=== PATIENT | male | born 1945 | race Caucasian/White ===

== ENCOUNTER → 2020-12-16 08:40 | Outpatient (CLI) | payer MEDICARE, SELFPAY ==
--- NOTE | 2020-12-16 08:46 | ART_ITS ---
Reason For Study: PVD Procedure A bilateral lower extremity continuous wave Doppler with analog waveform analysis and ankle brachial indexes. Left Segmental Pressures Left brachial= 162mmHg. Left posterior tibial artery = 177mmHg. Left dorsalis pedis artery = 161mmHg. The left dorsalis pedis waveforms are triphasic. The left posterior tibial artery waveforms are triphasic. Right Segmental Pressures Right brachial= 162mmHg. Right posterior tibial artery = 174mmHg. Right dorsalis pedis artery = 159mmHg. The right dorsalis pedis waveforms are triphasic. The right posterior tibial artery waveforms are triphasic. Indices The right ankle brachial index by the dorsalis pedis is 0.98. The right ankle brachial index by the posterior tibial artery is 1.07. The left ankle brachial index by the dorsalis pedis is 0.99. The left ankle brachial index by the posterior tibial artery is 1.09. VL/Ankle Brachial Index Interpretation Summary Bilateral lower extremities with no evidence of significant occlusive disease a t rest with bilateral triphasic flow and an JAGDISH 1.07 and 1.09. Ordering Physician: Supa Gil Referring Physician: Omer Moss Performed By: Susan Diamond RVT
--- NOTE | 2020-12-16 08:46 | AAVD_ITS ---
Reason For Study: AAA w/repair Aorta Measurements Aorta Doppler Measurements Proximal aorta measures2.07 x 2.04cm. in cross- Peak systolic flow velocities within the proximal sectional axis. aorta measure 53.8 cm/sec. Proximal aorta measures2.10cm. in longitudinal Mid limb, 58.2 cm/sec. axis. Distal limb, 83.3 cm/sec. Mid Limb, 1.22 x 1.20 x 1.26 cm Mid Residual sac, 2.89 x 2.91 x 3.02 cm. Distal limb, 1.64 x 1.64 x 1.62 cm. Distal Residual sac, 3.23 x 3.21 x 3.33 cm. Left Iliac Artery Left iliac artery measures 1.46 x 1.43 cm. in the cross-sectional axis. Left iliac artery measures 1.46 cm. in the longitudinal axis. Peak systolic velocity in the left iliac artery measures 54.8 cm/sec. Right Iliac Artery Right iliac artery measures 1.30 x 1.25 cm. in the cross-sectional axis. Right iliac artery measures 1.25 cm. in the longitudinal axis. Peak systolic velocity in the right iliac artery measures 35.8 cm/sec. Procedure Aorta IVC Iliac vasculature or bypass grafts [id number]. Technically difficult study due to bowel gas and acoustic shadowing. Exam performed in department. VL/Abd Aortic/IVC Duplex scan Interpretation Summary No evidence of aortic iliac aneurysm or stenosis. Ordering Physician: Supa Gil Referring Physician: Omer Moss Performed By: Susan Diamond RVT
== END ==
PROVIDERS: PCP Family Medicine; Referring Provider Surgery Vascular Surgery; Visit Provider Surgery Vascular Surgery
DX: I71.4 Abdominal aortic aneurysm, without rupture (principal); I73.9 Peripheral vascular disease, unspecified; Z95.828 Presence of other vascular implants and grafts
CPT/HCPCS: 93922; 93978

== ENCOUNTER 2021-10-22 15:10 | Emergency (ER) | payer MEDICARE, SELFPAY ==
[2021-10-22 15:11] VITALS: PULSE 48; RESP 14; TEMP 36.6; O2SAT 98; BMI 28.6
--- NOTE | 2021-10-22 15:34 | EDS_ITS ---
HPI History of Present Illness Chief Complaint: Back Informant: patient and EMS Narrative Narrative: 76-year-old male presenting to the emergency room with a chief complaint of low back pain. Patient states on Wednesday he was attempting to open a stuck window when he suddenly felt his back locked up. Started on low back and worked its way to the mid back. He states that he has been mostly resting as this is happened to him before and typically last around 5 days. He denies any radicular symptoms. No saddle anesthesia or bowel or bladder dysfunction. No red flag history. The patient notes that he felt like he was improving today got out of bed to go to the bathroom and had a sudden onset of increased back pain. Still no change in the symptoms other than the intensity of the pain. He was unable to drive here so he called EMS. Patient has had a history of abdominal aortic aneurysm repair. He denies any black tarry stools. He denies any abdominal pain. [facility] Medical History HTN (hypertension) Hypercholesteremia Hypothyroidism Home Medications atorvastatin 80 mg tablet 1 tab PO QHS 10/22/21 [History Last Taken Unknown] diazepam 5 mg tablet 5 mg PO Q8 PRN Muscle Spasm #15 tabs 10/22/21 [Rx Last Taken Unknown] ketorolac 10 mg tablet 10 mg PO Q8H PRN pain 5 days #15 tabs 10/22/21 [Rx Last Taken Unknown] levothyroxine 112 mcg tablet 1 tab PO DAILY 10/22/21 [History Last Taken Unknown] lisinopril 5 mg tablet 1 tab PO DAILY 10/22/21 [History Last Taken Unknown] metoprolol succinate 25 mg tablet,extended release 24 hr 1 tab PO BID 10/22/21 [History Last Taken Unknown] oxycodone 10 mg tablet 10 mg PO TID PRN pain 5 days #15 tabs 10/22/21 [Rx Last T aken Unknown] Allergy/AdvReac Type Severity Reaction Status Date / Time No Known Allergies Allergy Verified 10/22/21 15:14 Surgical History S/P triple vessel bypass Social History Smoking Status: Former smoker ROS ROS ED Constitutional Constitutional ED: Denies chills, fever(s) or weight loss Eyes Eyes: Denies change in vision or diplopia ENT ENT ED: Denies ear pain, rhinorrhea or sore throat Cardiovascular Cardiovascular: Denies chest pain, orthopnea, palpitations or racing heartbeat Respiratory/Chest Respiratory/Chest: Denies cough, dyspnea or orthopnea Gastrointestinal Gastrointestinal: Denies abdominal pain, diarrhea, nausea or vomiting Genitourinary Genitourinary ED: Denies dysuria, hematuria or urinary frequency Musculoskeletal Musculoskeletal: Reports back pain; Denies arthralgias or myalgias Integumentary Denies abscess or rash Neurologic Neurologic: Denies headache(s) or weakness Psychiatric Psychiatric: Denies anxiety, depression, suicidal ideation or suicidal thoughts Endocrine Endocrinology: Denies polydipsia, polyphagia or polyuria Allergic/Immunologic Allergic/Immunologic ED: Denies mouth swelling, tongue swelling or urticaria EXAM Physical Exam Const Vital Signs: 10/22/21 15:11 Temperature 97.8 F Temperature Source Temporal Pulse Rate 48 L Respiratory Rate 14 Pulse Ox 98 Oxygen Delivery Method Room Air Positive well nourished and well developed General Appearance ED: well developed HEENT Reports normocephalic, head/scalp atraumatic and moist mucous membranes Eyes PERRL and EOMs intact bilaterally Neck no lymphadenopathy, supple and no JVD Resp normal respiratory effort and clear to auscultation bilaterally Cardio regular rate, regular rhythm and no murmurs GI normal to inspection, nondistended, normoactive bowel sounds and non-tender Palpation: soft Back/Spine no CVA tenderness Back/Spine Narrative: There is palpable muscle spasm of the lumbar paraspinal musculature. Tender to palpation. There is no tissue texture changes to suggest underlying infection. Specifically there is no vesicular rash. Normal deep tendon reflexes sensation and strength. Lumbar Spine / Lower Back: ROM limited Extremity normal to inspection General Extremety ED: Negative for edema General Extremity: Negative for edema Neuro oriented x3 and CN's II-XII intact bilaterally Sensorium / Orientation: alert Motor Exam: strength 5/5 throughout Psych mental status grossly normal Mood & Affect: Negative for depressed or tearful Skin no rashes or lesions noted and no wounds MDM MDM MDM Narrative Medical decision making narrative: Patient received Toradol morphine and a dose of Valium. I will prescribe him Valium Toradol and oxycodone. Continue to rest and heat. Follow-up with primary care. He may benefit from physical therapy. Discharge Plan Triage Chief Complaint: Back ED Provider: Guilherme Dunlap Dx/Rx/DC Orders Clinical Impression: Acute back pain, Acute lumbar myofascial strain Instructions: ED Back Sprain/Strain Prescriptions: New diazepam [diazepam] 5 mg tablet 5 mg PO Q8 PRN (Reason: Muscle Spasm) Qty: 15 0RF ketorolac 10 mg tablet 10 mg PO Q8H PRN (Reason: pain) 5 Days Qty: 15 0RF oxycodone 10 mg tablet 10 mg PO TID PRN (Reason: pain) 5 Days Qty: 15 0RF No Action atorvastatin 80 mg tablet 1 tab PO QHS lisinopril 5 mg tablet 1 tab PO DAILY metoprolol succinate 25 mg tablet extended release 24 hr 1 tab PO BID levothyroxine 112 mcg tablet 1 tab PO DAILY Primary Care Provider: Omer Moss Referrals: Omer Moss MD [Primary Care Provider] - 5-7 Days Disposition Disposition: Home, Self Care
[2021-10-22] MEDS: Ketorolac 30 MG/ML Syringe IM (15:39)
[2021-10-22] MEDS: diazePAM 5 MG Tablet PO (15:40)
[2021-10-22] MEDS: morphine 10 MG/ML Syringe 5 MG IM (15:40)
[2021-10-22 17:01] VITALS: BP 167/84; PULSE 76; O2SAT 99
== END 2021-10-22 17:01 | disposition home or self-care (01) ==
PROVIDERS: Emergency Provider Emergency Medicine; PCP Family Medicine; Visit Provider Emergency Medicine
DX: S39.012A Strain of muscle, fascia and tendon of lower back, initial encounter (principal); X58.XXXA Exposure to other specified factors, initial encounter; I10 Essential (primary) hypertension; E78.00 Pure hypercholesterolemia, unspecified; E03.9 Hypothyroidism, unspecified; Z79.890 Hormone replacement therapy; Z79.899 Other long term (current) drug therapy; Z87.891 Personal history of nicotine dependence
CPT/HCPCS: 96372; 99284

== ENCOUNTER 2022-01-30 10:52 | Emergency (ER) | payer MEDICARE, SELFPAY ==
[2022-01-30 10:53] VITALS: BP 130/83; PULSE 55; RESP 20; TEMP 35.6; O2SAT 97; BMI 27.1
--- NOTE | 2022-01-30 10:53 | NURSING ---
NO OLD EKGS
--- NOTE | 2022-01-30 11:07 | RAD_ITS ---
STUDY: X-RAY CHEST REASON FOR EXAM: Male, 77 years old. Chest pain TECHNIQUE: Single AP portable view of the chest. COMPARISON: None. FINDINGS: EKG electrodes are seen. Hyperinflation. There is a 1.4 cm x 1.5 cm faint nodular density in the left midlung. This also evidence of a 1.2 cm faint nodular density in the right lung base. Mild increased markings at the left lung base suggesting atelectasis. There is no demonstrated pleural abnormality. Sternal cerclage wires and vascular clips are present from a prior sternotomy and coronary artery bypass graft procedure (CABG). Normal mediastinum and wilberto. Normal visualized pulmonary arteries. There is atherosclerotic calcification of the aortic arch with tortuosity. There are diffuse degenerative changes of the visualized thoracic spine. There is degenerative osteoarthritis of the bilateral shoulders. There is no demonstrated abnormality of the visualized soft tissue structures of the upper abdomen. RAD/Chest 1 View (Portable) IMPRESSION: Faint nodules in both lungs as described. Correlation with CT scan is recommended. Electronically Signed: Yobany Wilhelm MD at 11:56 EDT ,
--- NOTE | 2022-01-30 11:07 | EKG12_ITS ---
Test Reason : CP Blood Pressure : / mmHG Vent. Rate : 057 BPM Atrial Rate : 057 BPM P-R Int : 238 ms QRS Dur : 140 ms QT Int : 446 ms P-R-T Axes : 018 -51 070 degrees QTc Int : 434 ms Sinus bradycardia with 1st degree A-V block with Premature atrial complexes Right bundle branch block Left anterior fascicular block Bifascicular block Abnormal ECG Confirmed by SAMMIE JEREZ, PHOEBE ([id number]), pictures editor CAPRI LUNDBERG ([id number]) on 02/02/2022 1:20:23 PM Referred By: JEROME Confirmed By:PHOEBE COCHRAN MD
[2022-01-30 11:18] LABS: Absolute Lymphocyte Count 1.38 X10^3/uL (0.83-4.51); Absolute Neutrophil Count 6.1 X10^3/uL (2.0-7.7); Basophil# 0.07 X10^3/uL; Basophil% 0.8 % (0-1); Eosinophils% 1.1 % (0-5); Hematocrit 38.7 % (40-54); Hemoglobin 12.7 g/dL (13.0-16.5); Lymphocyte # 1.38 X10^3/ul (0.83-4.51); Lymphocyte % 15.7 % (19-41); Mean Corp Hgb Conc 32.8 g/dL (32-36); Mean Corpuscular Volume 88.4 fL (80-94); Mean Platelet Vol. 9.5 fl (6.2-12.0); Monocyte# 1.12 X10^3/uL; Monocyte% 12.7 % (0-10); NRBC Flagged by Analyzer 0 % (0-5); Neutrophil # 6.09 X10^3/uL (2.7-7.7); Neutrophil % 69.1 % (47-70); Platelet Count 267 K/mm3 (150-450); RBC Distribution Width CV 15.3 % (11.6-14.6); RBC Distribution Width SD 49.2 fl (35.1-43.9); Red Blood Count 4.38 M/mm3 (4.6-6.2); White Blood Count 8.8 K/mm3 (4.4-11.0)
--- NOTE | 2022-01-30 11:18 | EDS_ITS ---
HPI History of Present Illness Chief Complaint: Chest Pain Informant: patient Onset/Context/Timing Onset: Days Activity at onset: gradual Timing: Continuous Quality: Positive for Aching Location: Right Chest Current Severity: Mild Maximum Severity: Mild Worsened By: Movement of Torso Relieved By: Nothing Associated Symptoms: Negative for Nausea, Vomiting, Diaphoresis, Dyspnea, Cough, Fever, Lightheadedness, Acid Reflux or Palpitations Narrative Narrative: 7-year-old male history of prior [place], prior CABG 2007. Known AAA with a bypass graft. Chronic kidney disease stage III. States he has had flank pain on the right and now right rib cage and chest discomfort today. Denies nausea. No diaphoresis. No shortness of breath. No history of DVT or PE. No hemoptysis. No leg pain or swelling. No recent surgery or hospitalization. Prior Similar Symptoms: Yes Recent Illness/Hospitalization: No CVD Risk Factors: Negative for Diabetes or Smoking PE Risk Factors: Positive for Recent Travel/Surgery; Negative for Recent Immobilization, Prior DVT or PE, Cancer or OCP + Smoking + >/=35 TAD Risk Factors: Negative for Marfan's Syndrome [facility] Medical History HTN (hypertension) Hypercholesteremia Hypothyroidism Home Medications atorvastatin 80 mg tablet 1 tab PO QHS 10/22/21 [History Last Taken Unknown] diazepam 5 mg tablet 5 mg PO Q8 PRN Muscle Spasm #15 tabs 10/22/21 [Rx Last Taken Unknown] ketorolac 10 mg tablet 10 mg PO Q8H PRN pain 5 days #15 tabs 10/22/21 [Rx Last Taken Unknown] levothyroxine 112 mcg tablet 1 tab PO DAILY 10/22/21 [History Last Taken Unknown] lisinopril 5 mg tablet 1 tab PO DAILY 10/22/21 [History Last Taken Unknown] metoprolol succinate 25 mg tablet,extended release 24 hr 1 tab PO BID 10/22/21 [History Last Taken Unknown] oxycodone 10 mg tablet 10 mg PO TID PRN pain 5 days #15 tabs 10/22/21 [Rx Last Taken Unknown] oxycodone-acetaminophen 5 mg-325 mg tablet (Percocet) 1 tab PO Q4H PRN pain 5 days #14 tabs 01/30/22 [Rx Last Taken Unknown] prednisone 20 mg tablet 40 mg PO DAILY 7 days #14 tabs 01/30/22 [Rx Last Taken Unknown] Allergy/AdvReac Type Severity Reaction Status Date / Time No Known Allergies Allergy Verified 10/22/21 15:14 Surgical History S/P triple vessel bypass Social History Smoking Status: Former smoker ROS ROS ED ROS Narrative Right-sided chest wall pain Review of Systems ROS Unobtainable: Denies due to encephalopathy Constitutional Constitutional ED: Denies chills or fever(s) Eyes Eyes: Reports none ENT ENT ED: Denies ear pain Cardiovascular Cardiovascular: Reports chest pain; Denies palpitations or racing heartbeat Respiratory/Chest Respiratory/Chest: Denies cough Gastrointestinal Gastrointestinal: Denies abdominal pain, constipation, diarrhea, melena, nausea or vomiting Genitourinary Genitourinary ED: Denies dysuria or hematuria Musculoskeletal Musculoskeletal: Denies arthralgias Integumentary Denies abscess Neurologic Neurologic: Denies headache(s) Psychiatric Psychiatric: Denies anxiety Endocrine Endocrinology: Denies cold intolerance Hematologic/Lymphatic Hematologic/Lymphatic: Denies easy bleeding Allergic/Immunologic Allergic/Immunologic ED: Denies mouth swelling or tongue swelling EXAM Physical Exam Narrative Exam Narrative: 17-year-old male no acute distress. Vital signs stable afebrile. Pulse ox 97% on room air no hypoxia. H EENT exam unremarkable. Neck nontender no JVD. Lungs clear to auscultation bilaterally. Heart regular rhythm rate about 55 no murmur. Chest wall has right-sided rib cage tenderness. Increases with movement. No crepitance or subcu air. No bruising.. Abdomen soft nontender. No peritoneal signs. Moving all 4 extremities. Calves are nontender without edema or cords. Back nontender. Neurologically is awake and alert with no focal motor deficits. Const Vital Signs: 01/30/22 10:53 01/30/22 11:18 01/30/22 13:35 Temperature 96.0 F L Temperature Source Temporal Pulse Rate 55 L 87 Respiratory Rate 20 H 18 Blood Pressure 130/83 H 138/71 H Blood Pressure Mean 98 93 Pulse Ox 97 98 Oxygen Delivery Method Room Air Room Air Room Air Positive well nourished and well developed; Negative for obese, cachectic, contractures or unkempt General Appearance ED: well developed and NAD; Negative for unkempt, cachectic, contractures or pallor Nutritional Appearance: Negative for cachectic or obese HEENT Reports moist mucous membranes normocephalic and atraumatic; Negative for trauma or tenderness Eyes PERRL and EOMs intact bilaterally General Eye ED: Negative for pale conjunctiva or scleral icterus Neck no lymphadenopathy, supple and no JVD General: Negative for tenderness Chest Wall inspection of chest normal; Negative for palpation of chest normal Chest Narrative: Reproducible right rib cage tenderness. No crepitance or subcu air. No bruising. No bony deformities. Chest: tenderness Resp normal respiratory effort and clear to auscultation bilaterally Effort and Inspection: Negative for respiratory distress Auscultation: Negative for rales, rhonchi, wheezes or diminished lung sounds Cardio regular rate, regular rhythm, S1 normal heart sound, S2 normal heart sound and no murmurs Rate: Negative for bradycardia Rhythm: Negative for abnormal rhythm GI normal to inspection, nondistended, normoactive bowel sounds, soft to palpation, non-tender, non-distended and no masses Auscultation: Negative for hyperactive bowel sounds Palpation: Negative for splenomegaly or mass Back/Spine no CVA tenderness and no thoracic nor lumbar tenderness General Back: Negative for CVA tenderness Cervical Spine: Negative for cervical spine tenderness Extremity normal to inspection General Extremety ED: Negative for edema General Extremity: Negative for edema Neuro oriented x3 Sensorium / Orientation: awake, alert, oriented to person, oriented to place and oriented to time; Negative for confused, lethargic, stuporous or other Motor Exam: strength 5/5 throughout Psych mental status grossly normal Appearance: Negative for unkempt Attitude: No agitated Mood & Affect: Negative for depressed, anxious or tearful Skin no rashes or lesions noted and no wounds General Skin Exam: Negative for jaundice or pallor Rashes: No rashes noted Trauma: Negative for abrasion or laceration Heart Score History: Slightly/Non-Suspicious ECG: Normal Age: >/= 65 years Risk Factors: >/= 3 Risk Factors or History of CAD Troponin: </= Normal Limit Score: 4 MDM MDM MDM Narrative Medical decision making narrative: 77-year-old male with atypical reproducible, right side chest wall pain. Also known history of a AAA is requesting to have that checked. Cardiac work-up will be entertained. He has atypical flank pain but no urinary symptoms. Liver tests also be obtained. Ultrasound of his aorta. Labs x-ray EKG were unremarkable. Patient was given Percocet for pain and prednisone for inflammation due to his kidney function he really cannot do significant anti-inflammatories. Follow-up with his primary care physician in [place]. Lab Data Attestation: I reviewed the patient's lab results. Lab results narrative: CBC shows a white count 8.8. H&H 12.7 and 38. Platelets 267. Electrolytes unremarkable gap of 8 BUN 31 creatinine 1.71 he has a history of stage III chronic kidney disease. Glucose 164. Calcium of 10.3. Liver enzymes unremarkable other than alk phos of 147. Troponin was normal at 8. Repeat troponin normal at 9. No prior labs available for comparison. Labs: Laboratory Results - last 24 hr 01/30/22 01/30/22 01/30/22 10:55 10:55 10:55 WBC 8.8 RBC 4.38 L Hgb 12.7 L Hct 38.7 L MCV 88.4 MCH 29.0 MCHC 32.8 RDW Std Deviation 49.2 H RDW Coeff of George 15.3 H Plt Count 267 MPV 9.5 Immature Gran % (Auto) 0.600 Neut % (Auto) 69.1 Lymph % (Auto) 15.7 L [place] % (Auto) 12.7 H Eos % (Auto) 1.1 Baso % (Auto) 0.8 Absolute Neuts (auto) 6.1 Absolute Lymphs (auto) 1.38 Nucleated RBC % 0 Sodium 137 Potassium 4.3 Chloride 104 Carbon Dioxide 25.0 Anion Gap 8 BUN 31 H Creatinine 1.71 H Estim Creat Clear Calc 40.88 Est GFR (MDRD) Af Amer 50 L Est GFR (MDRD) Non-Af 42 L BUN/Creatinine Ratio 18.1 Glucose 164 H Calcium 10.3 H Total Bilirubin 0.60 Direct Bilirubin 0.17 AST 25 ALT 19 Alkaline Phosphatase 147 H Troponin I High Sens 8 Total Protein 7.8 Albumin 3.3 Globulin 4.5 H 01/30/22 13:25 WBC RBC Hgb Hct MCV MCH MCHC RDW Std Deviation RDW Coeff of George Plt Count MPV Immature Gran % (Auto) Neut % (Auto) Lymph % (Auto) [place] % (Auto) Eos % (Auto) Baso % (Auto) Absolute Neuts (auto) Absolute Lymphs (auto) Nucleated RBC % Sodium Potassium Chloride Carbon Dioxide Anion Gap BUN Creatinine Estim Creat Clear Calc Est GFR (MDRD) Af Amer Est GFR (MDRD) Non-Af BUN/Creatinine Ratio Glucose Calcium Total Bilirubin Direct Bilirubin AST ALT Alkaline Phosphatase Troponin I High Sens 9 Total Protein Albumin Globulin Radiography Chest X-Ray - ED: 1 View, Read by ED Physician, Heart, Lungs, Mediastinum, Bony Structures, No Acute Disease and Chronic Changes Diagnostic Testing: Clinical Impression(s) from Imaging Studies Chest X-Ray 01/30/22 11:07 IMPRESSION: Faint nodules in both lungs as described. Correlation with CT scan is recommended. Electronically Signed: Yobany Wilhelm MD at 11:56 EDT Reading Location ID and State: [address] [place] [address] , Service support , Aorta Iliac Vascular Ultrasound 01/30/22 11:35 Interpretation Summary Proximal abdominal aorta measures 1.94 x 2.07 cm in diameter A residual abdominal aortic aneurysm sac measures 2.44 x 2.29 x 2.41 cm in diameter Distal endograft limb measures 1.28 x 1.26 x 1.25 cm in the secondary distal limb measures 1.2 x 1.17 x 1.13 cm in diameter Distal residual aneurysm sac measures 3.1 x 3.65 x 3 cm diameter Normal flow rate is noted within the graft. Left iliac artery measures 1.18 x 1.18 cm diameter in the right common neck measures 1.2 x 1.22 cm diameter This is noted to be a technically difficult study due to acoustic shadowing. Clinical correlation would be appropriate. Ordering Physician: Freedom Woodruff Referring Physician: Omer Moss Performed By: Susan Diamond RVT Chest x-ray, portable, single view shows chronic changes no acute process. Interpreted by myself and the radiologist. No pneumonia. Radiologist is reading it as faint nodules. Changes with prior sternotomy. Rhythm Strip Rhythm Strip: Sinus bradycardia. Rate: 57 Ectopy: None EKG Initial EKG: Attestation: I personally reviewed and interpreted this EKG as follows: Interpretation: No Acute Injury Pattern and Sinus Bradycardia Comments: Sinus bradycardia cardia rate of 57 no acute signs of [place] or ischemia. Right bundle branch block. Left anterior fascicular block. First- degree AV block with a GA interval of 238. Discharge Plan Triage Chief Complaint: Chest Pain ED Provider: Freedom Woodruff Dx/Rx/DC Orders Clinical Impression: Acute chest wall pain, History of abdominal aortic aneurysm, Family history of coronary artery bypass graft surgery, History of chronic kidney disease Instructions: ED Chest Pain, Uncertain Cause Prescriptions: New oxycodone-acetaminophen [Percocet] 5-325 mg tablet 1 tab PO Q4H PRN (Reason: pain) 5 Days Qty: 14 0RF prednisone 20 mg tablet 40 mg PO DAILY 7 Days Qty: 14 0RF No Action atorvastatin 80 mg tablet 1 tab PO QHS lisinopril 5 mg tablet 1 tab PO DAILY metoprolol succinate 25 mg tablet extended release 24 hr 1 tab PO BID levothyroxine 112 mcg tablet 1 tab PO DAILY diazepam [diazepam] 5 mg tablet 5 mg PO Q8 PRN (Reason: Muscle Spasm) Qty: 15 0RF ketorolac 10 mg tablet 10 mg PO Q8H PRN (Reason: pain) 5 Days Qty: 15 0RF oxycodone 10 mg tablet 10 mg PO TID PRN (Reason: pain) 5 Days Qty: 15 0RF Primary Care Provider: Omer Moss Referrals: Omer Moss MD [Primary Care Provider] - As soon as possible Activity Restrictions/Additional Instructions: Percocet for pain. Prednisone for possible chest wall inflammation. Follow-up with your doctor. Disposition Disposition: Home, Self Care
[2022-01-30] MEDS: Ondansetron 4 MG/2 ML Vial IV (11:28)
[2022-01-30] MEDS: Morphine 4 MG/ML Syringe IV ×2 (11:28→13:28)
--- NOTE | 2022-01-30 11:35 | AAVD_ITS ---
Reason For Study: AAA w/repair, atypical pain Aorta Measurements Aorta Doppler Measurements Proximal aorta measures1.94 x 2.07cm. in cross- Peak systolic flow velocities within the proximal sectional axis. aorta measure 48.7 cm/sec. Proximal aorta measures2.11cm. in longitudinal Mid limb, 74.1 cm/sec. axis. Distal limb 1, 152.7 cm/sec. Mid Limb, 1.13 x 1.13 x 1.09 cm Distal limb 2, 129.3 cm/sec. Mid Residual sac, 2.44 x 2.29 x 2.41 cm. Distal limb 1, 1.28 x 1.26 x 1.25 cm. Distal limb 2, 1.20 x 1.17 x 1.13 cm. Distal Residual sac, 3.10 x 3.65 x 3.04 cm. Left Iliac Artery Left iliac artery measures 1.18 x 1.18 cm. in the cross-sectional axis. Left iliac artery measures 1.15 cm. in the longitudinal axis. Peak systolic velocity in the left iliac artery measures 58.3 cm/sec. Right Iliac Artery Right iliac artery measures 1.20 x 1.22 cm. in the cross-sectional axis. Right iliac artery measures 1.10 cm. in the longitudinal axis. Peak systolic velocity in the right iliac artery measures 52.8 cm/sec. Procedure Aorta IVC Iliac vasculature or bypass grafts [id number]. Technically difficult study due to acoustic shadowing. Preliminary report given to Dr. Woodruff. Exam performed portable in ED. VL/Abd Aortic/IVC Duplex scan Interpretation Summary Proximal abdominal aorta measures 1.94 x 2.07 cm in diameter A residual abdominal aortic aneurysm sac measures 2.44 x 2.29 x 2.41 cm in diam eter Distal endograft limb measures 1.28 x 1.26 x 1.25 cm in the secondary distal li mb measures 1.2 x 1.17 x 1.13 cm in diameter Distal residual aneurysm sac measures 3.1 x 3.65 x 3 cm diameter Normal flow rate is noted within the graft. Left iliac artery measures 1.18 x 1.18 cm diameter in the right common neck dameon sures 1.2 x 1.22 cm diameter This is noted to be a technically difficult study due to acoustic shadowing. Cl inical correlation would be appropriate. Ordering Physician: Freedom Woodruff Referring Physician: Omer Moss Performed By: Susan Diamond RVT
[2022-01-30 11:37] LABS: Anion Gap 8 (5-15); BUN 31 mg/dL (7-18); BUN/Creat Ratio 18.1 RATIO (10-20); Calcium,Total 10.3 mg/dL (8.5-10.1); Chloride 104 mmol/L (98-107); Creatinine, Serum 1.71 mg/dL (0.70-1.30); EST Glomerular Filtration Rate 42 mL/min (>60); Est Glom Filt Rate - Afr Amer 50 mL/min (>60); Estimated Creatinine Clearance 40.88 ml/min; Glucose 164 mg/dL (74-106); Potassium 4.3 mmol/L (3.5-5.1); Sodium Level 137 mmol/L (136-145); Troponin-I HS (w/2H Reflex) 8 pg/mL (3.0-78.0)
[2022-01-30 11:40] LABS: AST(SGOT) 25 U/L (15-37); Alanine Aminotransfer ALT/SGPT 19 U/L (16-61); Albumin, Serum 3.3 g/dL (3.2-5.0); Alkaline Phosphatase 147 U/L (45-117); Bilirubin, Direct 0.17 mg/dL (0.00-0.30); Globulin 4.5 g/dL (2.2-4.2); Protein, Total 7.8 g/dL (6.4-8.2)
[2022-01-30 13:13] LABS: Reflex Troponin-HS? (from REC) Y
[2022-01-30] MEDS: DiphenhydrAMINE 50 MG/ML Syringe 25 MG IV (13:34)
[2022-01-30 13:35] VITALS: BP 138/71; PULSE 87; RESP 18; O2SAT 98
[2022-01-30 13:53] LABS: Troponin-I HS 9 pg/mL (3.0-78.0)
[2022-01-30] MEDS: oxyCODONE 5 MG Tablet PO (15:27)
[2022-01-30 15:28] VITALS: BP 147/71; PULSE 79; RESP 16; O2SAT 95
== END 2022-01-30 15:29 | disposition home or self-care (01) ==
PROVIDERS: Emergency Provider Emergency Medicine; PCP Family Medicine; Visit Provider Emergency Medicine
DX: R07.89 Other chest pain (principal); N18.30 Chronic kidney disease, stage 3 unspecified; I12.9 Hypertensive chronic kidney disease with stage 1 through stage 4 chronic kidney disease, or unspecified chronic kidney disease; R10.9 Unspecified abdominal pain; E78.00 Pure hypercholesterolemia, unspecified; E03.9 Hypothyroidism, unspecified; I25.2 Old myocardial infarction; Z79.890 Hormone replacement therapy; Z79.899 Other long term (current) drug therapy; Z87.891 Personal history of nicotine dependence; Z95.1 Presence of aortocoronary bypass graft
CPT/HCPCS: 71045; 80048; 80076; 84484; 85025; 93005; 93978; 96374; 96375; 96376; 99285; A4216; J2405

== ENCOUNTER 2022-03-13 10:35 | Inpatient (IN) | payer MEDICARE, SELFPAY ==
[2022-03-13] VITALS (10 sets, daily range): BP systolic 102–170; BP diastolic 80–91; PULSE 102–116; RESP 16–27; TEMP 36.2–37.1; O2SAT 93–96; BMI 24.6; BMI 23.8
--- NOTE | 2022-03-13 11:04 | EKG12_ITS ---
Test Reason : BACK Blood Pressure : / mmHG Vent. Rate : 110 BPM Atrial Rate : 110 BPM P-R Int : 194 ms QRS Dur : 132 ms QT Int : 342 ms P-R-T Axes : 048 -70 069 degrees QTc Int : 462 ms Sinus tachycardia Right bundle branch block Left anterior fascicular block Bifascicular block Possible Lateral infarct , age undetermined Abnormal ECG Confirmed by SAMMIE JEREZ, PHOEBE ([id number]), photograph editor CAPRI LUNDBERG ([id number]) on 03/16/2022 12:59:23 PM Referred By: EDIE Confirmed By:PHOEBE COCHRAN MD
--- NOTE | 2022-03-13 11:04 | CT_ITS ---
STUDY: CT BRAIN WITHOUT CONTRAST REASON FOR EXAM: Male, 77 years old. Confusion, fall RADIATION DOSAGE (If Supplied By Facility): CTDIvol = ( 44.99 ) mGy, DLP = ( 812.98 ) mGycm TECHNIQUE: Transaxial CT imaging of the brain was performed without administration of intravenous contrast material. Individualized dose optimization techniques were used for this CT. COMPARISON: No relevant priors. FINDINGS: Normal soft tissue structures. Normal calvarium. There is mild cerebral atrophy with widening of the extra-axial spaces and ventricular dilatation. There are areas of decreased attenuation within the white matter tracts of the supratentorial brain, consistent with microvascular disease changes. Normal basal ganglia and thalami. Normal brainstem. Normal cerebellum. There is no intracranial hemorrhage. There are no findings of an acute ischemic infarction. Atherosclerotic calcification of vertebral arteries and cavernous portions of the internal carotid arteries bilaterally Small air-fluid level in the right maxillary sinus. CT/Brain/Head without Contrast IMPRESSION: Chronic involutional changes of the brain. Small air-fluid level in the right maxillary sinus. Electronically Signed: Yobany Wilhelm MD at 12:11 EST ,
--- NOTE | 2022-03-13 11:14 | EX.ED.DYSGE1 ---
HPI History of Present Illness Chief Complaint: Back Detail of Chief Complaint: Back pain and failure to thrive Informant: patient and spouse/S.O. Narrative Narrative: Patient presents the emergency department complaint of back pain and failure to thrive. Patient's had back pain for over 6 months but thinks it is getting worse. He has an outpatient MRI scheduled but he will need to be sedated to have it done because of his tremor and has not had it scheduled yet. Patient is getting weaker and the does not feel like she can care for him. Patient's had some increased confusion and some memory problems. Patient's had diarrhea for about 3 days. Patient did lose his balance and kind of slid to the floor today coming back from the bathroom but denied any injuries, went down on 1 knee. Patient describes severe pain in his low back all the way up towards his shoulder blades bilaterally. Denies pain down the legs. Denies loss of bowel or bladder function. Patient's thinks that he will require placement as she cannot care for him at home any longer. [facility] Medical History HTN (hypertension) Hypercholesteremia Hypothyroidism Home Medications atorvastatin 80 mg tablet 1 tab PO QHS 10/22/21 [History Last Taken Unknown] diazepam 5 mg tablet 5 mg PO Q8 PRN Muscle Spasm #15 tabs 10/22/21 [Rx Last Taken Unknown] ketorolac 10 mg tablet 10 mg PO Q8H PRN pain 5 days #15 tabs 10/22/21 [Rx Last Taken Unknown] levothyroxine 112 mcg tablet 1 tab PO DAILY 10/22/21 [History Last Taken Unknown] lisinopril 5 mg tablet 1 tab PO DAILY 10/22/21 [History Last Taken Unknown] metoprolol succinate 25 mg tablet,extended release 24 hr 1 tab PO BID 10/22/21 [History Last Taken Unknown] oxycodone 10 mg tablet 10 mg PO TID PRN pain 5 days #15 tabs 10/22/21 [Rx Last Taken Unknown] oxycodone-acetaminophen 5 mg-325 mg tablet (Percocet) 1 tab PO Q4H PRN pain 5 days #14 tabs 01/30/22 [Rx Last Taken Unknown] prednisone 20 mg tablet 40 mg PO DAILY 7 days #14 tabs 01/30/22 [Rx Last Taken Unknown] Allergy/AdvReac Type Severity Reaction Status Date / Time No Known Allergies Allergy Verified 03/13/22 10:36 Surgical History S/P triple vessel bypass Social History Smoking Status: Former smoker ROS ROS ED Review of Systems ROS Unobtainable: other Constitutional Constitutional ED: Reports lethargy; Denies chills, fever(s), sweats or weight loss Eyes Eyes: Denies blurry vision, change in vision or diplopia ENT ENT ED: Denies rhinorrhea or sore throat Cardiovascular Cardiovascular: Denies chest pain, orthopnea or racing heartbeat Respiratory/Chest Respiratory/Chest: Denies cough, dyspnea, dyspnea on exertion, orthopnea or sputum Gastrointestinal Gastrointestinal: Reports diarrhea; Denies abdominal pain, nausea or vomiting Genitourinary Genitourinary ED: Denies dysuria, hematuria or urinary frequency Musculoskeletal Musculoskeletal: Reports back pain; Denies arthralgias, myalgias or neck pain Integumentary Denies abscess, Abrasions or rash Neurologic Neurologic: Reports weakness; Denies headache(s) Psychiatric Psychiatric: Denies anxiety, depression or suicidal thoughts Endocrine Endocrinology: Denies polydipsia, polyphagia or polyuria Hematologic/Lymphatic Hematologic/Lymphatic: Denies easy bleeding, easy bruising or lymphadenopathy Allergic/Immunologic Allergic/Immunologic ED: Denies mouth swelling, tongue swelling or urticaria EXAM Physical Exam Const Vital Signs: 03/13/22 10:37 03/13/22 11:47 03/13/22 12:19 Temperature 97.2 F L Temperature Source Temporal Pulse Rate 116 H 102 H 103 H Respiratory Rate 27 H 18 20 H Blood Pressure 124/81 H 120/80 136/83 H Blood Pressure Mean 95 93 100 Pulse Ox 93 Oxygen Delivery Method Nasal Cannula 03/13/22 12:45 Temperature Temperature Source Pulse Rate Respiratory Rate Blood Pressure Blood Pressure Mean Pulse Ox 94 Oxygen Delivery Method Room Air Positive well nourished and well developed General Appearance ED: well developed and NAD HEENT Reports TM's clear and dry mucous membranes normocephalic and atraumatic; Negative for trauma or tenderness Tympanic Membrane ED: Yes TM's clear Mouth ED: Yes dry mucous membranes Mouth: dry mucous membranes Eyes PERRL and EOMs intact bilaterally General Eye ED: Negative for pale conjunctiva or scleral icterus Neck no lymphadenopathy, supple and no JVD General: Negative for tenderness Chest Wall inspection of chest normal and palpation of chest normal Chest: Negative for tenderness Resp normal respiratory effort and clear to auscultation bilaterally Effort and Inspection: Negative for respiratory distress or pain with movement Auscultation: Negative for rhonchi, wheezes or diminished lung sounds Cardio regular rate, regular rhythm, S1 normal heart sound, S2 normal heart sound and no murmurs Peripheral Pulses: pulses 2+ throughout GI normal to inspection, nondistended, normoactive bowel sounds, soft to palpation, non-tender, non-distended and no masses Back/Spine no CVA tenderness and no thoracic nor lumbar tenderness Extremity normal to inspection General Extremety ED: Negative for edema General Extremity: Negative for edema Neuro oriented x3, CN's II-XII intact bilaterally, no sensory deficits noted and gait normal Sensorium / Orientation: awake, alert, oriented to person, oriented to place and oriented to time Motor Exam: strength 5/5 throughout and strength abnormal Psych mental status grossly normal Skin no rashes or lesions noted and no wounds MDM MDM MDM Narrative Medical decision making narrative: Established on arrival. Patient was medicated Dilaudid and Zofran. CBC with differential obtained showed an elevated white count of 14.2, hemoglobin 11.7, hematocrit 37.5, platelets 328. Chemistries unremarkable. BUN was 115 and creatinine 3.65. Troponin was normal at 50. I discussed chest x-ray findings with hospitalist given that he may have some destruction of the right anterior fifth rib and some nodules in the lungs. This point etiology of his back pain unclear but concern for malignancy. Patient also has acute kidney injury. Suspect the diarrhea may be viral. Patient will be admitted for his failure to thrive and DIMITRIS. Lab Data Attestation: I reviewed the patient's lab results. Labs: Laboratory Results - last 24 hr 03/13/22 03/13/22 11:30 11:30 WBC 14.2 H RBC 4.06 L Hgb 11.7 L Hct 37.5 L MCV 92.4 MCH 28.8 MCHC 31.2 L RDW Std Deviation 54.6 H RDW Coeff of George 15.9 H Plt Count 328 MPV 10.2 Immature Gran % (Auto) 1.500 H Neut % (Auto) 80.7 H Lymph % (Auto) 4.3 L Frio % (Auto) 12.7 H Eos % (Auto) 0.6 Baso % (Auto) 0.2 Absolute Neuts (auto) 11.5 H Absolute Lymphs (auto) 0.61 L Nucleated RBC % 0 Differential Comment SCANNED Diff Path Review July foll Sodium 137 Potassium 4.9 Chloride 107 Carbon Dioxide 14.0 L Anion Gap 16 H BUN 115 H* Creatinine 3.65 H Estim Creat Clear Calc 19.15 Est GFR (MDRD) Af Amer 21 L Est GFR (MDRD) Non-Af 17 L BUN/Creatinine Ratio 31.5 H Glucose 103 Calcium 12.0 H Troponin I High Sens 50 Radiography Diagnostic Testing: Clinical Impression(s) from Imaging Studies Brain CT 03/13/22 11:04 IMPRESSION: Chronic involutional changes of the brain. Small air-fluid level in the right maxillary sinus. Electronically Signed: Yobany Wilhelm MD at 12:11 EST , Chest X-Ray 03/13/22 11:22 IMPRESSION: Hyperinflation. Stable examination. Stable nodular density in the left mid lung as well as at the right lung base. Compressible destruction of the right fifth rib anterolaterally. Electronically Signed: Yobany Wilhelm MD at 12:13 EST , 1 view chest x-ray obtained interpreted by myself as no acute disease process. Patient felt there may be destruction of the right fifth rib anterior laterally. Also noted was a nodular density in the left mid lung as well as right lung base. EKG Initial EKG: Attestation: I personally reviewed and interpreted this EKG as follows: Comments: Sinus rhythm with a ventricular rate of 110 bpm with right bundle branch block otherwise he had some nonspecific ST changes with some mild ST depression anteriorly Prior EKG tracings: not available for review Discharge Plan Dx/Rx/DC Orders Clinical Impression: Back pain, Acute kidney injury, Adult failure to thrive, Weakness Disposition Disposition: Acute Care Hospital [facility]
--- NOTE | 2022-03-13 11:22 | RAD_ITS ---
STUDY: X-RAY CHEST REASON FOR EXAM: Male, 77 years old. Cough TECHNIQUE: Single AP portable view of the chest. COMPARISON: Comparison is made with prior study dated 01/30/2022. FINDINGS: EKG electrodes are seen. Hyperinflation. Stable 1.4 cm x 1.5 cm faint nodular density in the left midlung. There is also evidence of a 1.2 cm faint nodular density in the right lung base. There is no demonstrated pleural abnormality. Sternal cerclage wires and vascular clips are present from a prior sternotomy and coronary artery bypass graft procedure (CABG). Normal mediastinum and wilberto. Normal visualized pulmonary arteries. There is atherosclerotic calcification of the aortic arch with tortuosity. There are diffuse degenerative changes of the visualized thoracic spine. Questionable destruction of the right fifth rib anterolaterally. There is no demonstrated abnormality of the visualized soft tissue structures of the upper abdomen. RAD/Chest 1 View (Portable) IMPRESSION: Hyperinflation. Stable examination. Stable nodular density in the left mid lung as well as at the right lung base. Compressible destruction of the right fifth rib anterolaterally. Electronically Signed: Yobany Wilhelm MD at 12:13 EST ,
[2022-03-13] MEDS: HYDROmorphone 1 MG/ML Syringe IV ×4 (11:28→21:15)
[2022-03-13] MEDS: 0.9% Normal Saline 1,000 ML 1000 ML IV (11:29)
[2022-03-13] MEDS: Ondansetron 4 MG/2 ML Vial IV ×3 (11:29→19:50)
[2022-03-13 11:40] LABS: Absolute Lymphocyte Count 0.61 X10^3/uL (0.83-4.51); Absolute Neutrophil Count 11.5 X10^3/uL (2.0-7.7); Basophil# 0.03 X10^3/uL; Basophil% 0.2 % (0-1); Eosinophil# 0.08 X10^3/uL; Eosinophils% 0.6 % (0-5); Hematocrit 37.5 % (40-54); Hemoglobin 11.7 g/dL (13.0-16.5); Lymphocyte # 0.61 X10^3/ul (0.83-4.51); Lymphocyte % 4.3 % (19-41); Mean Corp Hgb Conc 31.2 g/dL (32-36); Mean Corpuscular Hgb 28.8 pg (27.0-32.0); Mean Corpuscular Volume 92.4 fL (80-94); Mean Platelet Vol. 10.2 fl (6.2-12.0); Monocyte# 1.81 X10^3/uL; Monocyte% 12.7 % (0-10); NRBC Flagged by Analyzer 0 % (0-5); Neutrophil % 80.7 % (47-70); POSITIVE DIFFERENTIAL YES; Platelet Count 328 K/mm3 (150-450); RBC Distribution Width CV 15.9 % (11.6-14.6); RBC Distribution Width SD 54.6 fl (35.1-43.9); Red Blood Count 4.06 M/mm3 (4.6-6.2); White Blood Count 14.2 K/mm3 (4.4-11.0)
[2022-03-13 11:58] LABS: Differential Indicated SCAN CRITERIA MET
[2022-03-13 12:00] LABS: Anion Gap 16 (5-15); BUN 115 mg/dL (7-18); BUN/Creat Ratio 31.5 RATIO (10-20); Chloride 107 mmol/L (98-107); Creatinine, Serum 3.65 mg/dL (0.70-1.30); EST Glomerular Filtration Rate 17 mL/min (>60); Est Glom Filt Rate - Afr Amer 21 mL/min (>60); Estimated Creatinine Clearance 19.15 ml/min; Glucose 103 mg/dL (74-106); Potassium 4.9 mmol/L (3.5-5.1); Sodium Level 137 mmol/L (136-145); Troponin-I HS 50 pg/mL (3.0-78.0)
[2022-03-13 12:25] LABS: Differential Comment SCANNED
--- NOTE | 2022-03-13 12:58 | PCM.HP.STD ---
HPI - General General Date of Service: 03/13/22 Chief Complaint: Generalized weakness HPI Narrative CAT GARCIA, is a 77 M with multiple comorbidities including known AAA, coronary artery disease status post CABG who presents generalized weakness. Patient reported 3-day history of diarrhea nausea as well as vomiting. Patient has also been experiencing intermittent back pain for almost a month. Patient's evaluation in the ED did reveal acute kidney injury. Patient also had chest x-ray which which did show stable nodular density in the left mid lung as well as at the right lung base.? Compressible destruction of the right fifth rib anterolaterally. Patient subsequently admitted to regular nursing floor for further evaluation and management [facility] Medical History HTN (hypertension) Hypercholesteremia Hypothyroidism Home Medications atorvastatin 80 mg tablet 1 tab PO QHS 10/22/21 [History Last Taken Unknown] diazepam 5 mg tablet 5 mg PO Q8 PRN Muscle Spasm #15 tabs 10/22/21 [Rx Last Taken Unknown] ketorolac 10 mg tablet 10 mg PO Q8H PRN pain 5 days #15 tabs 10/22/21 [Rx Last Taken Unknown] levothyroxine 112 mcg tablet 1 tab PO DAILY 10/22/21 [History Last Taken Unknown] lisinopril 5 mg tablet 1 tab PO DAILY 10/22/21 [History Last Taken Unknown] metoprolol succinate 25 mg tablet,extended release 24 hr 1 tab PO BID 10/22/21 [History Last Taken Unknown] oxycodone 10 mg tablet 10 mg PO TID PRN pain 5 days #15 tabs 10/22/21 [Rx Last Taken Unknown] oxycodone-acetaminophen 5 mg-325 mg tablet (Percocet) 1 tab PO Q4H PRN pain 5 days #14 tabs 01/30/22 [Rx Last Taken Unknown] prednisone 20 mg tablet 40 mg PO DAILY 7 days #14 tabs 01/30/22 [Rx Last Taken Unknown] Allergy/AdvReac Type Severity Reaction Status Date / Time No Known Allergies Allergy Verified 03/13/22 10:36 Family History (Updated 03/13/22 @ 13:[address] Vega Spears MD) Father Heart disease Mother No problems noted. Surgical History S/P triple vessel bypass Social History Smoking Status: Former smoker ROS ROS Narrative GENERAL: Generalized weakness HEENT: denies headache, sinus congestion, or drainage, dysphagia RESPIRATORY: denies cough, sputum production, shortness of breath CARDIAC: denies chest pain, palpitations, orthopnea, PND GASTROINTESTINAL: , nausea, vomiting, GENITOURINARY: denies dysuria, urgency, frequency, heamaturia EXTREMITY: denies swelling MUSCULOSKELETAL: Low back pain NEUROLOGIC: denies focal numbness, weakness, tingling HEMATOLOGIC: denies easy bruising and/or hemorrhage INTEGUMENT: denies rashes PSYCHIATRIC: denies suicidal or homicidal ideation Vital Signs Vital Signs Vital Signs: 03/13/22 10:37 03/13/22 11:47 03/13/22 12:19 Temperature 97.2 F L Temperature Source Temporal Pulse Rate 116 H 102 H 103 H Respiratory Rate 27 H 18 20 H Blood Pressure 124/81 H 120/80 136/83 H Blood Pressure Mean 95 93 100 Pulse Ox 93 Oxygen Delivery Method Nasal Cannula 03/13/22 12:45 Temperature Temperature Source Pulse Rate Respiratory Rate Blood Pressure Blood Pressure Mean Pulse Ox 94 Oxygen Delivery Method Room Air Weight Weight: 84.822 kg Body Mass Index (BMI) 24.6 Physical Exam Narrative GENERAL: cooperative but frail looking HEENT: Atraumatic; normocephalic EYES; Anicteric, Normal Conjunctiva NECK; supple, normal thyroid, RESPIRATORY: Diminished to auscultation CARDIOVASCULAR: Regular S1 S2, GI: soft, normoactive bowel sounds, : No Renal angle tenderness; EXTREMITIES: No edema, no clubbing, MUSCULOSKELETAL: no muscle wasting NEURO: Awake; no lateralizing signs. SKIN: No Rash PSYCH; Flat affect Results Lab / Micro Data Result Diagrams: 03/13/22 11:30 03/13/22 11:30 Labs: Laboratory Results - last 24 hr 03/13/22 11:30: WBC 14.2 H, RBC 4.06 L, Hgb 11.7 L, Hct 37.5 L, MCV 92.4, MCH 28.8, MCHC 31.2 L, RDW Std Deviation 54.6 H, RDW Coeff of George 15.9 H, Plt Count 328, MPV 10.2, Immature Gran % (Auto) 1.500 H, Neut % (Auto) 80.7 H, Lymph % (Auto) 4.3 L, [place] % (Auto) 12.7 H, Eos % (Auto) 0.6, Baso % (Auto) 0.2, Absolute Neuts (auto) 11.5 H, Absolute Lymphs (auto) 0.61 L, Nucleated RBC % 0, Differential Comment SCANNED, Diff Path Review July foll 03/13/22 11:30: Sodium 137, Potassium 4.9, Chloride 107, Carbon Dioxide 14.0 L, Anion Gap 16 H, BUN 115 H*, Creatinine 3.65 H, Estim Creat Clear Calc 19.15, Est GFR (MDRD) Af Amer 21 L, Est GFR (MDRD) Non-Af 17 L, BUN/Creatinine Ratio 31.5 H, Glucose 103, Calcium 12.0 H, Troponin I High Sens 50 Micro: Microbiology 03/13/22 11:35 Nasal Secretion SARS-CoV-2 & FLU Antigen (Rapid) - Final Radiology Impression Brain CT 03/13/22 11:04 IMPRESSION: Chronic involutional changes of the brain. Small air-fluid level in the right maxillary sinus. Electronically Signed: Yobany Wilhelm MD at 12:11 EST , Chest X-Ray 03/13/22 11:22 IMPRESSION: Hyperinflation. Stable examination. Stable nodular density in the left mid lung as well as at the right lung base. Compressible destruction of the right fifth rib anterolaterally. Electronically Signed: Yobany Wilhelm MD at 12:13 EST , Assessment & Plan Assessment/Plan (1) Acute kidney injury: (2) Adult failure to thrive: (3) Back pain: (4) Weakness: PLAN: Plan Patient is a 77-year-old gentleman with multiple comorbidities admitted with progressive generalized weakness 1. Acute kidney injury ? Secondary to dehydration from patient nausea and vomiting. Admitted to regular nursing floor currently being managed with IV fluids, ordered serial BMPs and renal ultrasound for subsequent eval 2. Intractable nausea vomiting with diarrhea ? Suspected to be secondary to gastroenteritis possibly viral patient being rehydrated as stated above also did send for stool for ova and parasite as well as C. difficile. Patient treated symptomatically with antinausea medication as well as PPI 3. Chronic back pain ? Plan is to treat symptomatically 3. Known AAA ? Stable patient to follow-up with vascular surgery following discharge 5. Coronary artery disease ? With previous CABG currently stable 6. Hypertension ? We will continue patient home medication except for lisinopril in view of impaired kidney function 7. Dyslipidemia -Patient is on statin therapy, continued at home dose 8. Hypothyroidism - Patient is on levothyroxine home dose continued 9. DVT prophylaxis ? SC heparin Advance planning; did discuss with the patient and family regarding advanced directives as well as CODE STATUS. Did explain the various scenarios involved ( FULL CODE, DNR CCA, DNR CCA with no intubation, and DNR CC and what each meant) patient elected to remain full code with CPR and intubation if needed. Order was placed. Time spent on discussion 18 minutes. Charges/Coding Visit Charges Inpatient E&M: 07500 Init Hosp L3 Procedures Hospitalists Procedures: 18303 Advncd Care Plan 30 Min
--- NOTE | 2022-03-13 13:49 | US_ITS ---
STUDY: RENAL ULTRASOUND - COMPLETE REASON FOR EXAM: Male, 77 years old. DIMITRIS TECHNIQUE: Ultrasound evaluation of the kidneys was performed with real-time and static sim-scale imaging. COMPARISON: None. FINDINGS: RIGHT KIDNEY: Normal location of the right kidney, which is normal in size. The right kidney measures 10.6 cm x 5.9 cm x 3.6 cm. There is a normal cortex of the right kidney. The renal cortex measures 1.6 cm. There is no right renal mass or cyst. There are no right renal calculi. There is no right hydronephrosis. DISTAL RIGHT URETER: There is non-visualization of the distal right ureter. There is no demonstrated right ureterovesical junction calculus. There is no demonstrated right ureteral jet. LEFT KIDNEY: Normal location of the left kidney, which is normal in size. The left kidney measures 11.1 cm x 5.3 cm x 5.1 cm. There is a normal cortex of the left kidney. The renal cortex measures 1.9 cm. There is no left renal mass or cyst. There are no left renal calculi. There is no left hydronephrosis. DISTAL LEFT URETER: There is non-visualization of the distal left ureter. There is no demonstrated left ureterovesical junction calculus. There is no demonstrated left ureteral jet. BLADDER: The distended urinary bladder has a volume of 198 ml. There is a normal wall thickness of the distended urinary bladder. There is no demonstrated mass within the urinary bladder. There are no demonstrated bladder calculi. US/Kidney and Bladder IMPRESSION: Normal ultrasound of the kidneys and urinary bladder. Electronically Signed: Yobany Wilhelm MD at 14:58 EST ,
[2022-03-13] MEDS: 0.9% Normal Saline 1,000 ML 150 ML IV ×2 (16:03→22:55)
[2022-03-13] MEDS: Methocarbamol 750 MG Tablet PO (16:54)
[2022-03-13] MEDS: Lidocaine 5% Patch 1 PATCH TOPICAL (16:55)
--- NOTE | 2022-03-13 17:38 | CM.ED ---
Social Work-Emergency Department This property underwriter approached in the hallway by a female asking for a chair brought to patient's room. This property underwriter looked for chairs and presented back to the room with an update. Upon providing update about the chair, 2 females in the room were talking and one female later identified as the patient's sister asked who this property underwriter was, to which the other female (patient's ) indicated this property underwriter was a oncology social worker. The patient's sister then said good a oncology social worker and then both females indicated need to speak with oncology social worker. Patient laying in bed on side, appearing uncomfortable and reporting to be nauseous. Introduced patient and family to this property underwriter. Patient's is Ashley Gallo and patient's sister is Harini Gallo. reports concern about ability to continue caring for patient in current condition, and that family is looking at short-term rehab somewhere. Patient voiced that wants his sister to allowed to have information and updates on medical care. This property underwriter explored whether there is any advanced directive in place. reports this is in the process at escalator attendant Santana's office. Sister expressed that oncology social worker could assist with this at the hospital, to which this property underwriter confirmed. Sister indicated this should be done now. This property underwriter discussed that advanced directives can be done while in the hospital, and would be free, but that would be something to complete when patient is feeling up to discussion. Discussion continue to ensue about power of escalator attendant for healthcare. The reports that paperwork is being set up for the to be the power of escalator attendant, and the 's daughter Kae would be second in line. Patient reportedly has no biological children of his own. The sister voiced frustration with this plan, and commented several times to the patient, whether the patient fully understood what patient was agreeing to. Patient did voice that was okay with Kae being second line. Also voiced that just wanted to make sure that Harini could have updates. This property underwriter observed what appeared to be tension between the and sister. This property underwriter redirected conversation, acknowledging that advanced directives are indeed an important topic, however would need to be discussed at a later time when patient was feeling up to discussion. reports will continue to work with the escalator attendant to complete advanced directives, and the sister indicated desire to have hospital assist. Educated patient and visitors that without a power of escalator attendant for healthcare the patient's is legally For medical decision making if patient becomes unable to do so himself. Educated to the hierarchy of medical decision making without formal advanced directives in place. The sister would be after the due to lack of bio logical children or parents. RN came to the room to transfer patient up to medical surgical floor. While patient was getting ready for transfer from the ED to the medical unit, this property underwriter was able to obtain from the : Living [id number] home with 3 steps to enter. Lives with of 17 years. Durable medical equipment in place-cane, walker, grab rails, shower chair ( reports patient does not always use the equipment and has not showered in a week) Care at home- reports to do the cooking, transportation and oversees patient's medication management. reports it is difficult to leave the patient for long periods of time and that patient has many medical issues. 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 When patient was leaving the room with nursing, the patient's sister whispered in this property underwriter's ear of need to talk one-on-one. As patient was transported to the medical unit with nursing and his sister, and the was walking at a much slower pace, this property underwriter assisted the up to the medical floor. discussed historical tension within the family relating to the patient's sister being in executor of the patient's parents estate and reportedly not following the wishes of the . The sister is reportedly a RN. teary-eyed and expressed that has been unable to sleep herself, is feeling stressed. This property underwriter encouraged to self-care and to try to rest since the patient will be in the hospital. Upon presenting patient's room, the patient's sister stepped outside and expressed to this property underwriter that we will support what ever the patient's wishes are regarding advanced directives. The sister reports to be a traveling ICU nurse, currently stationed at [facility]. Plan: Handoff to care management team for the acute medical floor on MedSurg 3. Anticipate some level of rehab, based on family's reports of need for this patient. Social work will continue to follow and assist as indicated. If SNF is pursued, will need to provide family a list of facilities in a geographical region and in the insurance network of [facility]. Advanced directives - if so desired to complete at hospital, will need to speak with patient alone. -JOVANY Valdivia, INTERNSHIP COORDINATOR *This note was generated with Dormzy dictation software. It may contain incorrect words, spelling, and punctuation that were not noted in review of the chart prior to signing*
[2022-03-13] MEDS: proCHLORPERazine 10 MG/2 ML Vial 5 MG IV (21:04)
[2022-03-14] VITALS (11 sets, daily range): BP systolic 99–123; BP diastolic 56–79; PULSE 90–127; RESP 16–20; TEMP 36.3–37.6; O2SAT 91–94
[2022-03-14] MEDS: proCHLORPERazine 10 MG/2 ML Vial 5 MG IV ×3 (00:59→13:37)
[2022-03-14] MEDS: HYDROmorphone 1 MG/ML Syringe IV ×6 (00:59→22:28)
[2022-03-14] MEDS: Ondansetron 4 MG/2 ML Vial IV ×2 (05:14→17:09)
[2022-03-14] MEDS: 0.9% Normal Saline 1,000 ML 150 ML IV ×3 (05:15→18:40)
[2022-03-14 06:02] LABS: Mucous, Urine 0 SEEN /hpf (<or=2+); Squamous Epithelial Cells - UA 0 SEEN /hpf (0-5)
[2022-03-14 06:06] LABS: Color, Urine Yellow (Yellow); Glucose, Dipstick Normal (Normal); Ketone-Dipstick 15 mg/dl (Negative); Leukocyte Esterase-Dipstick 25 /ul (Negative); Nitrite-Dipstick Negative (Negative); Occult Blood-Urine 250 /ul (Negative); Protein-Dipstick 30 mg/dl (Negative); Urine Bilirubin Dipstick Negative (Negative); Urine Clarity Sl. Cloudy (Clear); Urine Urobilinogen Normal (Normal)
[2022-03-14 06:36] LABS: Bacteria 1+ /hpf (None Seen); Red Blood Cells-Urine > 100 SEEN /hpf (0-5); White Blood Cells 0-5 SEEN /hpf (0-5)
[2022-03-14 07:17] LABS: Absolute Lymphocyte Count 0.52 X10^3/uL (0.83-4.51); Absolute Neutrophil Count 8.9 X10^3/uL (2.0-7.7); Basophil# 0.02 X10^3/uL; Basophil% 0.2 % (0-1); Eosinophil# 0.01 X10^3/uL; Eosinophils% 0.1 % (0-5); Hematocrit 34.8 % (40-54); Hemoglobin 10.6 g/dL (13.0-16.5); Lymphocyte # 0.52 X10^3/ul (0.83-4.51); Lymphocyte % 4.7 % (19-41); Mean Corp Hgb Conc 30.5 g/dL (32-36); Mean Corpuscular Hgb 28.6 pg (27.0-32.0); Mean Corpuscular Volume 93.8 fL (80-94); Mean Platelet Vol. 10.4 fl (6.2-12.0); Monocyte# 1.52 X10^3/uL; Monocyte% 13.6 % (0-10); NRBC Flagged by Analyzer 0 % (0-5); Neutrophil # 8.86 X10^3/uL (2.7-7.7); Neutrophil % 79.5 % (47-70); POSITIVE DIFFERENTIAL YES; Platelet Count 280 K/mm3 (150-450); RBC Distribution Width CV 16.4 % (11.6-14.6); RBC Distribution Width SD 56.7 fl (35.1-43.9); Red Blood Count 3.71 M/mm3 (4.6-6.2); White Blood Count 11.1 K/mm3 (4.4-11.0)
[2022-03-14 07:36] LABS: Differential Indicated SCAN CRITERIA MET
--- NOTE | 2022-03-14 07:48 | PCM.PN.HOSP ---
Subjective Subjective Patient seen still complains of feeling profoundly weak. Reviewed this a.m.'s data slight improvement in kidney function. Patient renal ultrasound unremarkable. Consult placed to nephrology due to persistent of patient impaired kidney function Objective Data Objective Data Vital Signs: Vital Signs Temp Pulse Resp BP Pulse Ox O2 Del Method 97.6 F L 110 H 18 112/56 L 94 Room Air 03/14/22 02:00 03/14/22 02:00 03/14/22 02:00 03/14/22 02:00 03/14/22 02:00 03/14/22 02:00 Oxygen Delivery Method Room Air Weight: 84.141 kg Body Mass Index (BMI) 23.8 Intake & Output: Intake and Output for Last 24 Hours 03/12/22 03/13/22 03/14/22 23:59 23:59 23:59 Intake Total 2520 / 2620 1250 / 1250 Output Total 1250 / 1250 Balance 2520 / 2620 0 / 0 Lab / Micro Data Result Diagrams: 03/14/22 06:50 03/14/22 06:50 Labs: Laboratory Results - last 24 hr 03/13/22 11:30: WBC 14.2 H, RBC 4.06 L, Hgb 11.7 L, Hct 37.5 L, MCV 92.4, MCH 28.8, MCHC 31.2 L, RDW Std Deviation 54.6 H, RDW Coeff of George 15.9 H, Plt Count 328, MPV 10.2, Immature Gran % (Auto) 1.500 H, Neut % (Auto) 80.7 H, Lymph % (Auto) 4.3 L, [place] % (Auto) 12.7 H, Eos % (Auto) 0.6, Baso % (Auto) 0.2, Absolute Neuts (auto) 11.5 H, Absolute Lymphs (auto) 0.61 L, Nucleated RBC % 0, Differential Comment SCANNED, Diff Path Review July03/13/22 11:30: Sodium 137, Potassium 4.9, Chloride 107, Carbon Dioxide 14.0 L, Anion Gap 16 H, BUN 115 H*, Creatinine 3.65 H, Estim Creat Clear Calc 19.15, Est GFR (MDRD) Af Amer 21 L, Est GFR (MDRD) Non-Af 17 L, BUN/Creatinine Ratio 31.5 H, Glucose 103, Calcium 12.0 H, Troponin I High Sens 50 03/13/22 14:34: COVID-19 (RANDAL) Not Detected 03/14/22 05:50: Urine Color Yellow, Urine Clarity Sl. Cloudy, Urine pH 5.0, Ur Specific [place] 1.020, Urine Protein 30 H, Urine Glucose (UA) Normal, Urine Ketones 15 H, Urine Occult Blood 250 H, Urine Nitrite Negative, Urine Bilirubin Negative, Urine Urobilinogen Normal, Ur Leukocyte Esterase 25 H, Urine RBC > 100 SEEN, Urine WBC 0-5 SEEN, Ur Squamous Epith Cells 0 SEEN, Urine Bacteria 1+, Urine Mucus 0 SEEN 03/14/22 06:50: WBC 11.1 H, RBC 3.71 L, Hgb 10.6 L, Hct 34.8 L, MCV 93.8, MCH 28.6, MCHC 30.5 L, RDW Std Deviation 56.7 H, RDW Coeff of George 16.4 H, Plt Count 280, MPV 10.4, Immature Gran % (Auto) 1.900 H, Neut % (Auto) 79.5 H, Lymph % (Auto) 4.7 L, [place] % (Auto) 13.6 H, Eos % (Auto) 0.1, Baso % (Auto) 0.2, Absolute Neuts (auto) 8.9 H, Absolute Lymphs (auto) 0.52 L, Nucleated RBC % 0 Micro: Microbiology 03/13/22 16:50 Mucosa - Nasopharyngeal Respiratory Panel (PCR) - Final 03/13/22 11:35 Nasal Secretion SARS-CoV-2 & FLU Antigen (Rapid) - Final Radiography Diagnostic Testing: Radiology Impression Brain CT 03/13/22 11:04 IMPRESSION: Chronic involutional changes of the brain. Small air-fluid level in the right maxillary sinus. Electronically Signed: Yobany Wilhelm MD at 12:11 EST , Chest X-Ray 03/13/22 11:22 IMPRESSION: Hyperinflation. Stable examination. Stable nodular density in the left mid lung as well as at the right lung base. Compressible destruction of the right fifth rib anterolaterally. Electronically Signed: Yobany Wilhelm MD at 12:13 EST , Renal Ultrasound 03/13/22 13:49 IMPRESSION: Normal ultrasound of the kidneys and urinary bladder. Electronically Signed: Yobany Wilhelm MD at 14:58 EST , Physical Exam Narrative GENERAL: cooperative but frail looking HEENT: Atraumatic; normocephalic EYES; Anicteric, Normal Conjunctiva NECK; supple, normal thyroid, RESPIRATORY: Diminished to auscultation CARDIOVASCULAR: Regular S1 S2, GI: soft, normoactive bowel sounds, : No Renal angle tenderness; EXTREMITIES: No edema, no clubbing, MUSCULOSKELETAL: no muscle wasting NEURO: Awake; no lateralizing signs. SKIN: No Rash PSYCH; Flat affect Assessment & Plan Assessment/Plan (1) Acute kidney injury: (2) Adult failure to thrive: (3) Back pain: (4) Weakness: PLAN: Plan Patient is a 77-year-old gentleman with multiple comorbidities admitted with progressive generalized weakness 1. Acute kidney injury ? Secondary to dehydration from patient nausea and vomiting. Admitted to regular nursing floor currently being managed with IV fluids, ordered serial BMPs and renal ultrasound for subsequent eval -03/14/2022 Patient seen still complains of feeling profoundly weak. Reviewed this a.m.'s data slight improvement in kidney function. Patient renal ultrasound unremarkable. Consult placed to nephrology due to persistent of patient impaired kidney function 2. Intractable nausea vomiting with diarrhea ? Suspected to be secondary to gastroenteritis possibly viral patient being rehydrated as stated above also did send for stool for ova and parasite as well as C. difficile. Patient treated symptomatically with antinausea medication as well as PPI 3. Chronic back pain ? Plan is to treat symptomatically 3. Known AAA ? Stable patient to follow-up with vascular surgery following discharge 5. Coronary artery disease ? With previous CABG currently stable 6. Hypertension ? We will continue patient home medication except for lisinopril in view of impaired kidney function 7. Dyslipidemia -Patient is on statin therapy, continued at home dose 8. Hypothyroidism - Patient is on levothyroxine home dose continued 9. DVT prophylaxis ? SC heparin Charges/Coding Visit Charges Inpatient E&M: 57000 Subs Hosp L2
[2022-03-14 07:49] LABS: Anion Gap 15 (5-15); BUN 106 mg/dL (7-18); Calcium,Total 11.1 mg/dL (8.5-10.1); Chloride 114 mmol/L (98-107); Creatinine, Serum 2.79 mg/dL (0.70-1.30); EST Glomerular Filtration Rate 24 mL/min (>60); Est Glom Filt Rate - Afr Amer 29 mL/min (>60); Estimated Creatinine Clearance 25.06 ml/min; Glucose 109 mg/dL (74-106); Magnesium 2.1 mg/dL (1.6-2.6); Phosphorus 5.2 mg/dL (2.5-4.9); Potassium 4.6 mmol/L (3.5-5.1); Sodium Level 143 mmol/L (136-145)
[2022-03-14] MEDS: Lisinopril 5 MG Tablet PO (09:29)
[2022-03-14] MEDS: Aspirin E.C. 81 MG Tablet PO (09:29)
[2022-03-14] MEDS: Levothyroxine 112 MCG Tablet PO (09:29)
[2022-03-14] MEDS: Metoprolol(XL)Succ 25 MG Tablet PO ×2 (09:29→22:49)
[2022-03-14] MEDS: Cholecalciferol (VIT D3) 25 MCG TABLET (1,000 UNITS) PO (09:30)
[2022-03-14] MEDS: Heparin Injection (Vial) 5,000 UNIT/ML VIAL 5000 UNIT SC ×2 (09:35→22:49)
[2022-03-14] MEDS: Lidocaine 5% Patch 1 PATCH TOPICAL (09:35)
[2022-03-14 09:51] LABS: Differential Comment SCANNED
--- NOTE | 2022-03-14 10:31 | RAD_ITS ---
INDICATION: Abdominal pain EXAMINATION/TECHNIQUE: X-RAY - 2 frontal images of the Abdomen COMPARISON: FINDINGS: There is a separate dedicated chest radiograph report. There is a nonspecific bowel gas pattern. There is a bifurcated aortic stent in place. There are vascular calcifications. There are degenerative changes of the hips. RAD/Abdomen Single View IMPRESSION: Nonspecific bowel gas pattern. Atherosclerosis. Electronically Signed: Monica Huerta MD at 11:02 EST ,
[2022-03-14] MEDS: Acetaminophen 500 MG Tablet 1000 MG PO ×2 (13:39→22:49)
--- NOTE | 2022-03-14 14:47 | CASEMGMT ---
SW Note DELVIN and DELVIN Leahy met with patient and introduced selves as well as role with [facility] as social workers. DELVIN provided patient with a list of in network SNF options in [facility] per patient request. Patient is in agreement with SNF placement but reports being unsure about where he wants to go and will review list with his . Keyanna Greenberg SALESPERSON [employer], JAMES
--- NOTE | 2022-03-14 15:37 | CON.PCM.RE_ITS ---
Assessment & Plan Assessment/Plan (1) Acute kidney injury: PLAN: Baseline creatinine seems to be around 1.7 as of last month. Presented with a creatinine of 2.6, slightly better today. BUN is disproportionately high. Not on steroids prior to admission. Noted to be hypercalcemic. Renal ultrasound is not impressive. Urine analysis does show some cells including RBCs. No kidney stones noted on ultrasound. Clinically looks significantly dry with dry oral mucosa. Possible this is all volume depletion. Continue IV fluids 1 more day. Hypercalcemia. This is new onset compared to last month. Stop vitamin D supplements for now. With hydration, calcium levels are better. He was noted to have a nodular density in the lung on chest x-ray. We will try to see if old imaging is available. HPI Consult Data Date of Consult: 03/14/22 HPI Narrative Reason for Consultation: Acute renal failure HPI Narrative: CAT GARCIA, is a 77 M who presents to the hospital with complaints of generalized weakness, poor appetite, nausea, vomiting for several days. N ephrology on consultation due to acute renal failure. It seems she has CKD stage IIIb, baseline creatinine was 1.7 in January 2022. Also noted to have hypercalcemia. He is on vitamin D supplements, no calcium supplements prior to admission. Feels somewhat better. He says he is voiding more urine now compared to yesterday. No breathing difficulties. [facility] Medical History (Updated 03/13/22 @ 15:39 by Renetta Farrar) AAA (abdominal aortic aneurysm) Acute back pain with sciatica Arthritis HTN (hypertension) Hypercholesteremia Hypothyroidism Kidney disease Home Medications atorvastatin 80 mg tablet 80 mg PO QHS 10/22/21 [History Last Taken 03/12/22] levothyroxine 112 mcg tablet 1 tab PO DAILY 10/22/21 [History Last Taken 03/11/22] lisinopril 5 mg tablet 1 tab PO DAILY 10/22/21 [History Last Taken 03/12/22] metoprolol succinate 25 mg tablet,extended release 24 hr 25 mg PO BID 10/22/21 [History Last Taken 03/12/22] oxycodone 10 mg tablet 10 mg PO TID PRN pain 5 days #15 tabs 10/22/21 [Rx Last Taken 03/10/22] acetaminophen 500 mg tablet 1,000 mg PO Q6H PRN Pain 03/13/22 [History Last Taken 03/12/22] aspirin 81 mg tablet,delayed release 81 mg PO DAILY 03/13/22 [History Last Taken 2 Days Ago ~03/11/22] cholecalciferol (vitamin D3) 25 mcg (1,000 unit) capsule 25 mcg PO DAILY ARAUZ PPLEMENT 03/13/22 [History Last Taken 03/11/22] diphenhydramine HCl 50 mg capsule 100 mg PO QHS PRN Insomnia 03/13/22 [History Last Taken Unknown] omeprazole 20 mg capsule,delayed release 20 mg PO DAILY GERD 03/13/22 [History Last Taken 03/13/22] tizanidine 4 mg tablet 4 - 8 mg PO TID PRN Pain 03/13/22 [History Last Taken 03/12/22] Allergy/AdvReac Type Severity Reaction Status Date / Time No Known Allergies Allergy Verified 03/13/22 10:36 Family History (Updated 03/13/22 @ 13:[address] Vega Spears MD) Father Heart disease Mother No problems noted. Surgical History S/P triple vessel bypass Social History Smoking Status: Former smoker ROS ROS Narrative Negative except above Physical Exam Narrative Alert awake oriented x 3 no obvious distress no pallor no icterus no JVD s1s2 no murmurs lungs clear abdomen soft no organomegaly no edema no cyanosis Lab / Micro Data Result Diagrams: 03/14/22 06:50 03/14/22 06:50 Labs: Laboratory Results - last 24 hr 03/13/22 14:34: COVID-19 (RANDAL) Not Detected 03/14/22 05:50: Urine Color Yellow, Urine Clarity Sl. Cloudy, Urine pH 5.0, Ur Specific [place] 1.020, Urine Protein 30 H, Urine Glucose (UA) Normal, Urine Ketones 15 H, Urine Occult Blood 250 H, Urine Nitrite Negative, Urine Bilirubin Negative, Urine Urobilinogen Normal, Ur Leukocyte Esterase 25 H, Urine RBC > 100 SEEN, Urine WBC 0-5 SEEN, Ur Squamous Epith Cells 0 SEEN, Urine Bacteria 1+, Urine Mucus 0 SEEN 03/14/22 06:50: WBC 11.1 H, RBC 3.71 L, Hgb 10.6 L, Hct 34.8 L, MCV 93.8, MCH 28.6, MCHC 30.5 L, RDW Std Deviation 56.7 H, RDW Coeff of George 16.4 H, Plt Count 280, MPV 10.4, Immature Gran % (Auto) 1.900 H, Neut % (Auto) 79.5 H, Lymph % (Auto) 4.7 L, [place] % (Auto) 13.6 H, Eos % (Auto) 0.1, Baso % (Auto) 0.2, Absolute Neuts (auto) 8.9 H, Absolute Lymphs (auto) 0.52 L, Nucleated RBC % 0, Differential Comment SCANNED 03/14/22 06:50: Sodium 143, Potassium 4.6, Chloride 114 H, Carbon Dioxide 14.0 L , Anion Gap 15, BUN 106 H*, Creatinine 2.79 H, Estim Creat Clear Calc 25.06, Est GFR (MDRD) Af Amer 29 L, Est GFR (MDRD) Non-Af 24 L, BUN/Creatinine Ratio 38.0 H , Glucose 109 H, Calcium 11.1 H, Phosphorus 5.2 H, Magnesium 2.1 Micro: Microbiology 03/13/22 16:50 Mucosa - Nasopharyngeal Respiratory Panel (PCR) - Final 03/13/22 11:35 Nasal Secretion SARS-CoV-2 & FLU Antigen (Rapid) - Final Radiology Impression KUB X-Ray 03/14/22 10:31 IMPRESSION: Nonspecific bowel gas pattern. Atherosclerosis. Electronically Signed: Monica Huerta MD at 11:02 EST ,
--- NOTE | 2022-03-14 15:58 | EKG12_ITS ---
Test Reason : ARRYTHMIA Blood Pressure : / mmHG Vent. Rate : 094 BPM Atrial Rate : 094 BPM P-R Int : 198 ms QRS Dur : 086 ms QT Int : 362 ms P-R-T Axes : 023 -42 069 degrees QTc Int : 452 ms Sinus rhythm with frequent Premature ventricular complexes in a pattern of bigeminy Left axis deviation Inferior-posterior infarct , age undetermined Abnormal ECG When compared with ECG of 13-MAR-2022 11:11, MANUAL COMPARISON REQUIRED, DATA IS UNCONFIRMED Confirmed by SAMMIE JEREZ, PHOEBE ([id number]), visual effects editor CAPRI LUNDBERG ([id number]) on 03/17/2022 8:38:05 AM Referred By: ANGELINE Confirmed By:PHOEBE COCHRAN MD
[2022-03-14] MEDS: Ensure Plus High Protein 120 ML LIQUID PO (17:10)
[2022-03-14 17:32] LABS: Magnesium 1.8 mg/dL (1.6-2.6)
[2022-03-14] MEDS: Atorvastatin Calcium 80 MG Tablet PO (22:49)
[2022-03-15] VITALS (10 sets, daily range): BP systolic 115–121; BP diastolic 54–83; PULSE 41–94; RESP 16–22; TEMP 36.4–36.7; O2SAT 93–97
[2022-03-15] MEDS: HYDROmorphone 1 MG/ML Syringe IV ×5 (03:26→19:43)
[2022-03-15] MEDS: Levothyroxine 112 MCG Tablet PO (05:29)
[2022-03-15] MEDS: Acetaminophen 500 MG Tablet 1000 MG PO ×3 (05:30→22:32)
[2022-03-15 07:23] LABS: Absolute Lymphocyte Count 0.65 X10^3/uL (0.83-4.51); Absolute Neutrophil Count 5.6 X10^3/uL (2.0-7.7); Basophil# 0.03 X10^3/uL; Basophil% 0.4 % (0-1); Eosinophil# 0.11 X10^3/uL; Eosinophils% 1.4 % (0-5); Hematocrit 28.1 % (40-54); Hemoglobin 8.8 g/dL (13.0-16.5); Lymphocyte # 0.65 X10^3/ul (0.83-4.51); Lymphocyte % 8.3 % (19-41); Mean Corp Hgb Conc 31.3 g/dL (32-36); Mean Corpuscular Hgb 29.5 pg (27.0-32.0); Mean Corpuscular Volume 94.3 fL (80-94); Mean Platelet Vol. 10.6 fl (6.2-12.0); Monocyte# 1.35 X10^3/uL; Monocyte% 17.2 % (0-10); NRBC Flagged by Analyzer 0.3 % (0-5); Neutrophil # 5.59 X10^3/uL (2.7-7.7); Neutrophil % 71.3 % (47-70); Platelet Count 234 K/mm3 (150-450); RBC Distribution Width CV 16.9 % (11.6-14.6); RBC Distribution Width SD 58.6 fl (35.1-43.9); Red Blood Count 2.98 M/mm3 (4.6-6.2); White Blood Count 7.8 K/mm3 (4.4-11.0)
--- NOTE | 2022-03-15 07:34 | PN.HOSP_ITS ---
Subjective Subjective Patient seen still appears ill looking but overall clinical condition improving. His kidney function trending in the right direction. Patient was seen in consultation by nephrology the day prior. Also had an extensive discussion with patient's regarding his condition. Plan is for patient to be discharged to halfway facility when medically stable Objective Data Objective Data Vital Signs: Vital Signs Temp Pulse Resp BP Pulse Ox O2 Del Method O2 Flow Rate 97.8 F 94 22 H 118/83 H 93 Room Air 2 03/15/22 03:00 03/15/22 03:00 03/15/22 03:00 03/15/22 03:00 03/15/22 03:00 03/15/22 03:00 03/14/22 15:40 Oxygen Flow Rate (L/min) 2 Oxygen Delivery Method Room Air Weight: 87.4 kg Body Mass Index (BMI) 23.8 Intake & Output: Intake and Output for Last 24 Hours 03/13/22 03/14/22 03/15/22 23:59 23:59 23:59 Intake Total 2520 / 2620 3385 / 3385 1000 / 1000 Output Total 1700 / 2150 1050 / 1050 Balance 2520 / 2620 1685 / 1235 -50 / -50 Medical Nutrition Assessment Dietitian: Malnutrition Criteria Met Start: 03/14/22 20:16 Freq: Status: Active Protocol: Document 03/14/22 15:16 CECIL (Rec: 03/14/22 20:16 [facility] [id number]) Nutrition Malnutrition Evidence of Malnutrition Exists Yes Malnutrition (moderate): Acute Illness/Injury Evidenced By Suboptimal Energy Intake ( Moderate),Weight Loss ( Moderate),Physical Changes ( Mild) Clinical Problem Acute Disease or Injury Related Malnutrition Etiology related to physiological changes causing decreased oral intakes Signs/Symptoms as evidenced by significant weight loss of 9.8% in ~1.5 months, mild muscle wasting per NFPA (clavicles, temples, etc.) and poor oral intakes of less than 75% of estimated energy needs for at least 7 days. Status Active Problem Recommendation Dietitian Recommendations/Changes Continue with Regular - General diet. Order Ensure Plus High Protein 120mL 4x/d w/ medpass and Magic Cup BID w/ lunch and dinner to help increase oral intakes. Will reassess oral intakes upon f/u and modify interventions as needed. Lab / Micro Data Result Diagrams: 03/15/22 07:03 03/15/22 07:03 Labs: Laboratory Results - last 24 hr 03/14/22 06:50: WBC 11.1 H, RBC 3.71 L, Hgb 10.6 L, Hct 34.8 L, MCV 93.8, MCH 28.6, MCHC 30.5 L, RDW Std Deviation 56.7 H, RDW Coeff of George 16.4 H, Plt Count 280, MPV 10.4, Immature Gran % (Auto) 1.900 H, Neut % (Auto) 79.5 H, Lymph % (Auto) 4.7 L, [place] % (Auto) 13.6 H, Eos % (Auto) 0.1, Baso % (Auto) 0.2, Absol [place] Neuts (auto) 8.9 H, Absolute Lymphs (auto) 0.52 L, Nucleated RBC % 0, Differential Comment SCANNED 03/14/22 06:50: Sodium 143, Potassium 4.6, Chloride 114 H, Carbon Dioxide 14.0 L , Anion Gap 15, BUN 106 H*, Creatinine 2.79 H, Estim Creat Clear Calc 25.06, Est GFR (MDRD) Af Amer 29 L, Est GFR (MDRD) Non-Af 24 L, BUN/Creatinine Ratio 38.0 H , Glucose 109 H, Calcium 11.1 H, Phosphorus 5.2 H, Magnesium 2.1 03/14/22 17:06: Magnesium 1.8 03/15/22 07:03: WBC 7.8, RBC 2.98 L, Hgb 8.8 L, Hct 28.1 L, MCV 94.3 H, MCH 29.5, MCHC 31.3 L, RDW Std Deviation 58.6 H, RDW Coeff of George 16.9 H, Plt Count 234, MPV 10.6, Immature Gran % (Auto) 1.400 H, Neut % (Auto) 71.3 H, Lymph % (Auto) 8.3 L, [place] % (Auto) 17.2 H, Eos % (Auto) 1.4, Baso % (Auto) 0.4, Absolute Neuts (auto) 5.6, Absolute Lymphs (auto) 0.65 L, Nucleated RBC % 0.3 Micro: Microbiology 03/13/22 16:50 Mucosa - Nasopharyngeal Respiratory Panel (PCR) - Final 03/13/22 11:35 Nasal Secretion SARS-CoV-2 & FLU Antigen (Rapid) - Final Radiography Diagnostic Testing: Radiology Impression KUB X-Ray 03/14/22 10:31 IMPRESSION: Nonspecific bowel gas pattern. Atherosclerosis. Electronically Signed: Monica Huerta MD at 11:02 EST , Physical Exam Narrative GENERAL: cooperative but frail looking HEENT: Atraumatic; normocephalic EYES; Anicteric, Normal Conjunctiva NECK; supple, normal thyroid, RESPIRATORY: Diminished to auscultation CARDIOVASCULAR: Regular S1 S2, GI: soft, normoactive bowel sounds, : No Renal angle tenderness; EXTREMITIES: No edema, no clubbing, MUSCULOSKELETAL: no muscle wasting NEURO: Awake; no lateralizing signs. SKIN: No Rash PSYCH; Flat affect Assessment & Plan Assessment/Plan (1) Acute kidney injury: (2) Adult failure to thrive: (3) Back pain: (4) Weakness: PLAN: Plan Patient is a 77-year-old gentleman with multiple comorbidities admitted with progressive generalized weakness 1. Acute kidney injury ? Secondary to dehydration from patient nausea and vomiting. Admitted to regular nursing floor currently being managed with IV fluids, ordered serial BMPs and renal ultrasound for subsequent eval -03/14/2022 Patient seen still complains of feeling profoundly weak. Reviewed this a.m.'s data slight improvement in kidney function. Patient renal ultrasound unremarkable. Consult placed to nephrology due to persistent of patient impaired kidney function ? 03/15/2022 patient kidney function trending in the right direction patient was seen in consultation by nephrology today prior notes and recommendations reviewed 2. Intractable nausea vomiting with diarrhea ? Suspected to be secondary to gastroenteritis possibly viral patient being rehydrated as stated above also did send for stool for ova and parasite as well as C. difficile. Patient treated symptomatically with antinausea medication as well as PPI 3. Chronic back pain ? Plan is to treat symptomatically 3. Known AAA ? Stable patient to follow-up with vascular surgery following discharge 5. Coronary artery disease ? With previous CABG currently stable 6. Hypertension ? We will continue patient home medication except for lisinopril in view of impaired kidney function 7. Dyslipidemia -Patient is on statin therapy, continued at home dose 8. Hypothyroidism - Patient is on levothyroxine home dose continued 9. DVT prophylaxis ? SC heparin 10. Physical deconditioning - Requested for PT OT eval and geriatric social work professor to assist with discharge planning Charges/Coding Visit Charges Inpatient E&M: 96797 Subs Hosp L2
[2022-03-15 07:42] LABS: Anion Gap 8 (5-15); BUN 92 mg/dL (7-18); BUN/Creat Ratio 49.2 RATIO (10-20); Calcium,Total 10.9 mg/dL (8.5-10.1); Chloride 125 mmol/L (98-107); Creatinine, Serum 1.87 mg/dL (0.70-1.30); EST Glomerular Filtration Rate 37 mL/min (>60); Est Glom Filt Rate - Afr Amer 45 mL/min (>60); Estimated Creatinine Clearance 37.39 ml/min; Glucose 127 mg/dL (74-106); Potassium 4.7 mmol/L (3.5-5.1); Sodium Level 151 mmol/L (136-145)
[2022-03-15] MEDS: Metoprolol(XL)Succ 25 MG Tablet PO ×2 (07:55→22:32)
[2022-03-15] MEDS: Aspirin E.C. 81 MG Tablet PO (07:56)
[2022-03-15] MEDS: Heparin Injection (Vial) 5,000 UNIT/ML VIAL 5000 UNIT SC ×2 (09:43→22:32)
[2022-03-15] MEDS: Lidocaine 5% Patch 1 PATCH TOPICAL (09:43)
[2022-03-15] MEDS: Ensure Plus High Protein 120 ML LIQUID PO ×4 (10:06→22:31)
[2022-03-15] MEDS: 0.9% Normal Saline 1,000 ML 75 ML IV ×2 (10:16→23:57)
--- NOTE | 2022-03-15 16:28 | PN.RENAL_ITS ---
Subjective Subjective no new complaints Objective Data Objective Data Vital Signs: Vital Signs Temp Pulse Resp BP Pulse Ox O2 Del Method O2 Flow Rate 97.6 F L 74 16 121/71 H 97 Nasal Cannula 2 03/15/22 14:57 03/15/22 14:57 03/15/22 14:57 03/15/22 14:57 03/15/22 14:57 03/15/22 14:57 03/15/22 14:57 Oxygen Flow Rate (L/min) 2 Oxygen Delivery Method Nasal Cannula Weight: 87.4 kg Body Mass Index (BMI) 23.8 Intake & Output: Intake and Output for Last 24 Hours 03/13/22 03/14/22 03/15/22 23:59 23:59 23:59 Intake Total 2520 / 2620 3385 / 3385 1410 / 1410 Output Total 1700 / 2150 1475 / 1475 Balance 2520 / 2620 1685 / 1235 -65 / -65 Medical Nutrition Assessment Dietitian: Malnutrition Criteria Met Start: 03/14/22 20:16 Freq: Status: Active Protocol: Document 03/14/22 15:16 FABI (Rec: 03/14/22 20:16 [facility] [id number]) Nutrition Malnutrition Evidence of Malnutrition Exists Yes Malnutrition (moderate): Acute Illness/Injury Evidenced By Suboptimal Energy Intake ( Moderate),Weight Loss ( Moderate),Physical Changes ( Mild) Clinical Problem Acute Disease or Injury Related Malnutrition Etiology related to physiological changes causing decreased oral intakes Signs/Symptoms as evidenced by significant weight loss of 9.8% in ~1.5 months, mild muscle wasting per NFPA (clavicles, temples, etc.) and poor oral intakes of less than 75% of estimated energy needs for at least 7 days. Status Active Problem Recommendation Dietitian Recommendations/Changes Continue with Regular - General diet. Order Ensure Plus High Protein 120mL 4x/d w/ medpass and Magic Cup BID w/ lunch and dinner to help increase oral intakes. Will reassess oral intakes upon f/u and modify interventions as needed. Lab / Micro Data Result Diagrams: 03/15/22 07:03 03/15/22 07:03 Labs: Laboratory Results - last 24 hr 03/14/22 17:06: Magnesium 1.8 03/15/22 07:03: WBC 7.8, RBC 2.98 L, Hgb 8.8 L, Hct 28.1 L, MCV 94.3 H, MCH 29.5, MCHC 31.3 L, RDW Std Deviation 58.6 H, RDW Coeff of George 16.9 H, Plt Count 234, MPV 10.6, Immature Gran % (Auto) 1.400 H, Neut % (Auto) 71.3 H, Lymph % (Auto) 8.3 L, [place] % (Auto) 17.2 H, Eos % (Auto) 1.4, Baso % (Auto) 0.4, Absolute Neuts (auto) 5.6, Absolute Lymphs (auto) 0.65 L, Nucleated RBC % 0.3 03/15/22 07:03: Sodium 151 H, Potassium 4.7, Chloride 125 H, Carbon Dioxide 18.0 L, Anion Gap 8, BUN 92 H, Creatinine 1.87 H, Estim Creat Clear Calc 37.39, Est GFR (MDRD) Af Amer 45 L, Est GFR (MDRD) Non-Af 37 L, BUN/Creatinine Ratio 49.2 H , Glucose 127 H, Calcium 10.9 H Micro: Microbiology 03/13/22 16:50 Mucosa - Nasopharyngeal Respiratory Panel (PCR) - Final 03/13/22 11:35 Nasal Secretion SARS-CoV-2 & FLU Antigen (Rapid) - Final Physical Exam Narrative Alert awake oriented x 3 no obvious distress no pallor no icterus no JVD s1s2 no murmurs lungs clear abdomen soft no organomegaly no edema no cyanosis Assessment & Plan Assessment/Plan (1) Acute kidney injury: PLAN: Baseline creatinine seems to be around 1.7 as of last month. Presented with a creatinine of 2.6, better today. BUN is disproportionately high. Not on steroids prior to admission. Noted to be hypercalcemic. Renal ultrasound is not impressive. Urine analysis does show some cells including RBCs. No kidney stones noted on ultrasound. Clinically looks significantly dry with dry oral mucosa. Possible this is all volume depletion. improved with fluids. Oral mucosa is still dry. Sodium is on the higher side at 151. IV fluids changed this morning. Advised to drink more liquids for now. Hypercalcemia. This is new onset compared to last month. Stopped vitamin D supplements for now. With hydration, calcium levels are better. He was noted to have a nodular density in the lung on chest x-ray.
[2022-03-15] MEDS: Atorvastatin Calcium 80 MG Tablet PO (22:32)
[2022-03-16] VITALS (8 sets, daily range): BP systolic 121–150; BP diastolic 65–85; PULSE 72–100; RESP 18–20; TEMP 36.6–37; O2SAT 93–95
[2022-03-16] MEDS: HYDROmorphone 1 MG/ML Syringe IV ×3 (00:14→08:00)
[2022-03-16 05:54] LABS: Absolute Lymphocyte Count 0.67 X10^3/uL (0.83-4.51); Absolute Neutrophil Count 5.9 X10^3/uL (2.0-7.7); Basophil# 0.03 X10^3/uL; Basophil% 0.4 % (0-1); Eosinophil# 0.18 X10^3/uL; Eosinophils% 2.2 % (0-5); Hematocrit 25.1 % (40-54); Hemoglobin 7.8 g/dL (13.0-16.5); Lymphocyte # 0.67 X10^3/ul (0.83-4.51); Lymphocyte % 8.1 % (19-41); Mean Corp Hgb Conc 31.1 g/dL (32-36); Mean Corpuscular Hgb 29.2 pg (27.0-32.0); Mean Platelet Vol. 10.3 fl (6.2-12.0); Monocyte# 1.36 X10^3/uL; Monocyte% 16.4 % (0-10); NRBC Flagged by Analyzer 0.4 % (0-5); Neutrophil # 5.87 X10^3/uL (2.7-7.7); POSITIVE MORPHOLOGY YES; Platelet Count 241 K/mm3 (150-450); RBC Distribution Width CV 17.1 % (11.6-14.6); Red Blood Count 2.67 M/mm3 (4.6-6.2); White Blood Count 8.3 K/mm3 (4.4-11.0)
[2022-03-16] MEDS: Levothyroxine 112 MCG Tablet PO (06:16)
[2022-03-16] MEDS: Acetaminophen 500 MG Tablet 1000 MG PO ×3 (06:16→21:19)
[2022-03-16 06:20] LABS: Anion Gap 8 (5-15); BUN 60 mg/dL (7-18); BUN/Creat Ratio 42.6 RATIO (10-20); Calcium,Total 10.6 mg/dL (8.5-10.1); Chloride 124 mmol/L (98-107); Creatinine, Serum 1.41 mg/dL (0.70-1.30); EST Glomerular Filtration Rate 52 mL/min (>60); Est Glom Filt Rate - Afr Amer 63 mL/min (>60); Estimated Creatinine Clearance 49.58 ml/min; Glucose 113 mg/dL (74-106); Potassium 4.4 mmol/L (3.5-5.1); Sodium Level 149 mmol/L (136-145)
[2022-03-16 07:19] LABS: Differential Indicated SCAN CRITERIA MET
[2022-03-16] MEDS: Aspirin E.C. 81 MG Tablet PO (08:01)
--- NOTE | 2022-03-16 08:39 | PN.RENAL_ITS ---
Documented by User: LORRAINE Harris 03/16/22 08:46 Subjective Subjective Following for DIMITRIS Resting in bed, no overnight events. Denies any complaints this morning. Objective Data Objective Data Vital Signs: Vital Signs Temp Pulse Resp BP Pulse Ox O2 Del Method O2 Flow Rate 97.8 F 96 20 H 129/85 H 93 Nasal Cannula 2 03/16/22 02:42 03/16/22 02:42 03/16/22 02:42 03/16/22 02:42 03/16/22 07:40 03/16/22 07:52 03/16/22 07:52 Oxygen Flow Rate (L/min) 2 Oxygen Delivery Method Nasal Cannula Weight: 89.5 kg Body Mass Index (BMI) 23.8 Intake & Output: Intake and Output for Last 24 Hours 03/14/22 03/15/22 03/16/22 23:59 23:59 23:59 Intake Total 3385 / 3385 3270 / 3270 Output Total 1700 / 2150 1825 / 2375 1100 / 1100 Balance 1685 / 1235 1445 / 895 -1100 / -1100 Medical Nutrition Assessment Dietitian: Malnutrition Criteria Met Start: 03/14/22 20:16 Freq: Status: Active Protocol: Document 03/14/22 15:16 CECIL (Rec: 03/14/22 20:16 FABI [id number]) Nutrition Malnutrition Evidence of Malnutrition Exists Yes Malnutrition (moderate): Acute Illness/Injury Evidenced By Suboptimal Energy Intake ( Moderate),Weight Loss ( Moderate),Physical Changes ( Mild) Clinical Problem Acute Disease or Injury Related Malnutrition Etiology related to physiological changes causing decreased oral intakes Signs/Symptoms as evidenced by significant weight loss of 9.8% in ~1.5 months, mild muscle wasting per NFPA (clavicles, temples, etc.) and poor oral intakes of less than 75% of estimated energy needs for at least 7 days. Status Active Problem Recommendation Dietitian Recommendations/Changes Continue with Regular - General diet. Order Ensure Plus High Protein 120mL 4x/d w/ medpass and Magic Cup BID w/ lunch and dinner to help increase oral intakes. Will reassess oral intakes upon f/u and modify interventions as needed. Lab / Micro Data Result Diagrams: 03/16/22 05:30 03/16/22 05:30 Labs: Laboratory Results - last 24 hr 03/14/22 06:50: Diff Path Review July03/16/22 05:30: WBC 8.3, RBC 2.67 L, Hgb 7.8 L, Hct 25.1 L, MCV 94.0, MCH 29.2, MCHC 31.1 L, RDW Std Deviation 59.0 H, RDW Coeff of George 17.1 H, Plt Count 241, MPV 10.3, Immature Gran % (Auto) 1.900 H, Neut % (Auto) 71.0 H, Lymph % (Auto) 8.1 L, [place] % (Auto) 16.4 H, Eos % (Auto) 2.2, Baso % (Auto) 0.4, Absolute Neuts (auto) 5.9, Absolute Lymphs (auto) 0.67 L, Nucleated RBC % 0.4 03/16/22 05:30: Sodium 149 H, Potassium 4.4, Chloride 124 H, Carbon Dioxide 17.0 L, Anion Gap 8, BUN 60 H, Creatinine 1.41 H, Estim Creat Clear Calc 49.58, Est GFR (MDRD) Af Amer 63, Est GFR (MDRD) Non-Af 52 L, BUN/Creatinine Ratio 42.6 H, Glucose 113 H, Calcium 10.6 H Micro: Microbiology 03/13/22 16:50 Mucosa - Nasopharyngeal Respiratory Panel (PCR) - Final 03/13/22 11:35 Nasal Secretion SARS-CoV-2 & FLU Antigen (Rapid) - Final Physical Exam Narrative Alert awake oriented x 3, no obvious distress no JVD s1s2 no murmurs lungs clear abdomen soft, nontender no edema Assessment & Plan Assessment/Plan (1) Acute kidney injury: PLAN: Baseline creatinine seems to be around 1.7 01/30/2022. Presented with a creatinine of 3.65 on 03/13 and has improved to 1.41 mg/dL today. BUN was disproportionately high, peaked at 115 and is currently 60. Not on steroids prior to admission and hgb was 11.7. Noted to be hypercalcemic. Renal ultrasound is not impressive. Urine analysis does show some cells including RBCs. No kidney stones noted on ultrasound. Clinically looked significantly dry with dry oral mucosa. Possible this is all volume depletion. improving with fluids. Oral mucosa is still dry. Sodium improved to 149 from 151. IV fluids changed yesterday. Encouraged patient to drink more liquids for now. Hypercalcemia. Calcium level January 30 was 10.3. Stopped vitamin D supple ments for now. With hydration, calcium levels are better. He was noted to have a nodular density in the lung on chest x-ray. Serum calcium was as high as 12 and is currently 10.6 today. Documented by User: Dr. Francisco Taylor MD 03/16/22 15:15 Objective Data Lab / Micro Data Result Diagrams: 03/16/22 05:30 03/16/22 05:30 Assessment & Plan Assessment/Plan (1) Acute kidney injury: PLAN: Baseline creatinine seems to be around 1.7 01/30/2022. Presented with a creatinine of 3.65 on 03/13 and has improved to 1.41 mg/dL today. BUN was disproportionately high, peaked at 115 and is currently 60. Not on steroids prior to admission and hgb was 11.7. Noted to be hypercalcemic. Renal ultra sound is not impressive. Urine analysis does show some cells including RBCs. No kidney stones noted on ultrasound. Clinically looked significantly dry with dry oral mucosa. Possible this is all volume depletion. improving with fluids. Oral mucosa is still dry. Sodium improved to 149 from 151. IV fluids changed yesterday. Encouraged patient to drink more liquids for now. Hypercalcemia. Calcium level January 30 was 10.3. Stopped vitamin D supplements for now. With hydration, calcium levels are better. He was noted to have a nodular density in the lung on chest x-ray. Serum calcium was as high as 12 and is currently 10.6 today. Addendum cr is at baseline. can arrange follow up in office after dc. seen and examined independently
--- NOTE | 2022-03-16 09:08 | CASEMGMT ---
Social Work SW received VM from pt requesting pt complete short term rehab at [facility]. DELVIN checked with Shayla Oakes, covering TCU/Rehab worker to confirm bed availability and that pt insurance in network. Shayla stated TCU and Rehab unit will accept [employer] insurance. Shayla to report back to this worker on if bed would be available for pt at this time. LUCITA Cobb
[2022-03-16] MEDS: Methocarbamol 750 MG Tablet PO ×2 (09:15→16:17)
[2022-03-16] MEDS: Lidocaine 5% Patch 1 PATCH TOPICAL (10:06)
[2022-03-16] MEDS: Heparin Injection (Vial) 5,000 UNIT/ML VIAL 5000 UNIT SC ×2 (10:06→21:19)
[2022-03-16] MEDS: Metoprolol(XL)Succ 25 MG Tablet PO ×2 (10:06→21:19)
[2022-03-16] MEDS: Ensure Plus High Protein 120 ML LIQUID PO ×2 (10:07→14:06)
--- NOTE | 2022-03-16 11:01 | PN.HOSP_ITS ---
Subjective Subjective Follow-up on hypoxia/pneumonia/acute on chronic back pain: Patient was seen and examined. He complains of severe mid back and low back pain. He remains on 6 L of oxygen. Denies any dizziness or palpitations. Objective Data Objective Data Vital Signs: Vital Signs Temp Pulse Resp BP Pulse Ox O2 Del Method O2 Flow Rate 98.6 F 87 18 130/74 H 94 Nasal Cannula 2 03/16/22 09:45 03/16/22 10:06 03/16/22 09:45 03/16/22 09:45 03/16/22 09:45 03/16/22 09:45 03/16/22 09:45 Oxygen Flow Rate (L/min) 2 Oxygen Delivery Method Nasal Cannula Weight: 89.5 kg Body Mass Index (BMI) 23.8 Intake & Output: Intake and Output for Last 24 Hours 03/14/22 03/15/22 03/16/22 23:59 23:59 23:59 Intake Total 3385 / 3385 3270 / 3270 110 / 110 Output Total 1700 / 2150 1825 / 2375 1100 / 1100 Balance 1685 / 1235 1445 / 895 -990 / -990 Medical Nutrition Assessment Dietitian: Malnutrition Criteria Met Start: 03/14/22 20:16 Freq: Status: Active Protocol: Document 03/14/22 15:16 CECIL (Rec: 03/14/22 20:16 FABI [id number]) Nutrition Malnutrition Evidence of Malnutrition Exists Yes Malnutrition (moderate): Acute Illness/Injury Evidenced By Suboptimal Energy Intake ( Moderate),Weight Loss ( Moderate),Physical Changes ( Mild) Clinical Problem Acute Disease or Injury Related Malnutrition Etiology related to physiological changes causing decreased oral intakes Signs/Symptoms as evidenced by significant weight loss of 9.8% in ~1.5 months, mild muscle wasting per NFPA (clavicles, temples, etc.) and poor oral intakes of less than 75% of estimated energy needs for at least 7 days. Status Active Problem Recommendation Dietitian Recommendations/Changes Continue with Regular - General diet. Order Ensure Plus High Protein 120mL 4x/d w/ medpass and Magic Cup BID w/ lunch and dinner to help increase oral intakes. Will reassess oral intakes upon f/u and modify interventions as needed. Lab / Micro Data Result Diagrams: 03/16/22 05:30 03/16/22 05:30 Labs: Laboratory Results - last 24 hr 03/14/22 06:50: Diff Path Review July03/16/22 05:30: WBC 8.3, RBC 2.67 L, Hgb 7.8 L, Hct 25.1 L, MCV 94.0, MCH 29.2, MCHC 31.1 L, RDW Std Deviation 59.0 H, RDW Coeff of George 17.1 H, Plt Count 241, MPV 10.3, Immature Gran % (Auto) 1.900 H, Neut % (Auto) 71.0 H, Lymph % (Auto) 8.1 L, [place] % (Auto) 16.4 H, Eos % (Auto) 2.2, Baso % (Auto) 0.4, Absolute Neuts (auto) 5.9, Absolute Lymphs (auto) 0.67 L, Nucleated RBC % 0.4 03/16/22 05:30: Sodium 149 H, Potassium 4.4, Chloride 124 H, Carbon Dioxide 17.0 L, Anion Gap 8, BUN 60 H, Creatinine 1.41 H, Estim Creat Clear Calc 49.58, Est GFR (MDRD) Af Amer 63, Est GFR (MDRD) Non-Af 52 L, BUN/Creatinine Ratio 42.6 H, Glucose 113 H, Calcium 10.6 H Micro: Microbiology 03/13/22 16:50 Mucosa - Nasopharyngeal Respiratory Panel (PCR) - Final 03/13/22 11:35 Nasal Secretion SARS-CoV-2 & FLU Antigen (Rapid) - Final Physical Exam Narrative Physical exam: General: Alert, Oriented x3, Cooperative, on 6L of oxygen HEENT: Atraumatic Oral: Moist Mucosa Neck: Supple Lungs: Diminished to auscultation Cardiovascular: HS I+II, regular, no murmurs Abdomen: Bowel Sounds Present, Soft, tenderness over the lower back Extremities: No edema Skin: No rashes, No breakdown Neurological: Grossly intact Psych/Mental Status: Appropriate Assessment & Plan Assessment/Plan (1) Acute kidney injury: (2) Adult failure to thrive: (3) Back pain: (4) Weakness: PLAN: Plan 1. Acute kidney injury, likely prerenal from dehydration, improving Admitting creatinine was 3.65, creatinine today is 1.41 Renal ultrasound is unremarkable Nephrology consulted and following Continue on IV fluids, trend lab 2. Intractable nausea, vomiting and diarrhea likely secondary to gastroenteritis, resolved Rapid COVID-19 antigen test, rest patient panel as well as influenza A/B negative 3. Anemia, drop in hemoglobin from 11.7 to 7.8 Iron studies show a mixed picture, will repeat H&H, Will continue to trend, transfuse for hemoglobin less than 7 Stool for occult blood is pending Check stat CT for probable retroperitoneal bleed 4. Acute on chronic back pain, persistent, Will check CT of the abdomen pelvis for probable retroperitoneal bleed MRI of the thoracic/lumbar spine pending Discontinue IV Dilaudid, continue on oxycodone as needed, Lidoderm patch 5. History of AAA/CAD/hypertension/dyslipidemia, aspirin, statin, metoprolol 6. Hypothyroidism, continue on synthroid 7. DVT PPx- Heparin SC Charges/Coding Visit Charges Inpatient E&M: 87880 Subs Hosp L3
[2022-03-16] MEDS: oxyCODONE 5 MG Tablet PO (12:22)
--- NOTE | 2022-03-16 13:21 | MRI_ITS ---
STUDY: MRI THORACIC SPINE WITHOUT CONTRAST REASON FOR EXAM: Male, 77 years old. chronic back pain- no history of CA TECHNIQUE: Standardized fat and water weighted pulse sequences were obtained in the sagittal and axial planes. COMPARISON: None. FINDINGS: Normal kyphosis of the thoracic spine. There is no substantial scoliosis. T1-2, T2-3, T3-4, T4-5, T5-6, T6-7, T7-8, T8-9, T9-10, T10-11, T11-12: There is extensive heterogeneous hypointense T1 and T2 lesions extending to the posterior elements of the pedicles and multiple levels throughout the visualized cervical and thoracic spine. Scattered No evidence of significant spinal canal narrowing. Normal visualized thoracic cord. Normal conus medullaris that terminates at the . The soft tissue structures are unremarkable. 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 No significant spinal canal narrowing or foraminal narrowing. No significant disc destruction. Consider whole-body nuclear medicine bone scan for further whole body analysis. Electronically Signed: Jae Koch DO at 17:03 EST ,
[2022-03-16 13:45] LABS: Ferritin 1010 ng/mL (26-388); Iron 29 ug/dL (65-175); Iron Binding Capacity,Total 167 ug/dL (250-450); PERCENT IRON SATURATION 17.4 % (15.0-55.0)
[2022-03-16 13:53] LABS: Platelet Count 250 K/mm3 (150-450); RET-HE 30.7 pg (30-35)
[2022-03-16 13:57] LABS: Pathologist Review Reviewed
[2022-03-16] MEDS: 0.9% Normal Saline 1,000 ML 75 ML IV (14:07)
[2022-03-16 15:15] LABS: Pathologist Review Reviewed
--- NOTE | 2022-03-16 15:25 | CASEMGMT ---
Social Work Shayla from [facility] reached out. Pt has been approved and precert obtained. Dr. Ribera updated. Dr stated pt not ready to d/c today. Pt will go tomorrow morning. LUCTIA Cobb
[2022-03-16] MEDS: oxyCODONE 5 MG Tablet 10 MG PO (16:17)
--- NOTE | 2022-03-16 16:19 | NURSING ---
REMAINS DOWN IN MRI- MEDICATED PER PT REQUEST SO MRI CAN BE COMPELTED
[2022-03-16 17:15] LABS: Hematocrit 24.1 % (40-54); Hemoglobin 7.6 g/dL (13.0-16.5)
[2022-03-16] MEDS: Atorvastatin Calcium 80 MG Tablet PO (21:20)
[2022-03-17] VITALS (17 sets, daily range): BP systolic 99–137; BP diastolic 60–91; PULSE 64–94; RESP 18; TEMP 36.1–37.2; O2SAT 94–96
[2022-03-17] MEDS: oxyCODONE 5 MG Tablet 10 MG PO ×3 (01:45→20:46)
[2022-03-17] MEDS: Acetaminophen 500 MG Tablet 1000 MG PO ×2 (05:07→13:37)
[2022-03-17] MEDS: Levothyroxine 112 MCG Tablet PO (05:07)
[2022-03-17] MEDS: 0.9% Normal Saline 1,000 ML 75 ML IV (05:08)
[2022-03-17 06:31] LABS: Absolute Neutrophil Count 7.1 X10^3/uL (2.0-7.7); Basophil# 0.05 X10^3/uL; Basophil% 0.5 % (0-1); Eosinophil# 0.27 X10^3/uL; Eosinophils% 2.8 % (0-5); Hematocrit 24.1 % (40-54); Hemoglobin 7.2 g/dL (13.0-16.5); Lymphocyte % 7.2 % (19-41); Mean Corp Hgb Conc 29.9 g/dL (32-36); Mean Corpuscular Hgb 28.7 pg (27.0-32.0); Mean Platelet Vol. 10.3 fl (6.2-12.0); Monocyte# 1.28 X10^3/uL; Monocyte% 13.3 % (0-10); NRBC Flagged by Analyzer 0.5 % (0-5); Neutrophil # 7.11 X10^3/uL (2.7-7.7); Neutrophil % 73.6 % (47-70); Platelet Count 271 K/mm3 (150-450); RBC Distribution Width CV 17.1 % (11.6-14.6); RBC Distribution Width SD 60.1 fl (35.1-43.9); Red Blood Count 2.51 M/mm3 (4.6-6.2); White Blood Count 9.7 K/mm3 (4.4-11.0)
[2022-03-17 06:56] LABS: Albumin, Serum 1.3 g/dL (3.2-5.0); BUN 40 mg/dL (7-18); BUN/Creat Ratio 32.5 RATIO (10-20); Calcium,Total 10.5 mg/dL (8.5-10.1); Chloride 120 mmol/L (98-107); Creatinine, Serum 1.23 mg/dL (0.70-1.30); EST Glomerular Filtration Rate 61 mL/min (>60); Est Glom Filt Rate - Afr Amer 73 mL/min (>60); Estimated Creatinine Clearance 56.84 ml/min; Glucose 114 mg/dL (74-106); Potassium 4.1 mmol/L (3.5-5.1); Sodium Level 146 mmol/L (136-145)
[2022-03-17] MEDS: Aspirin E.C. 81 MG Tablet PO (08:01)
--- NOTE | 2022-03-17 08:34 | CT_ITS ---
STUDY: CT CHEST, ABDOMEN T PELVIS WITHOUT CONTRAST REASON FOR EXAM: Male, 77 years old. Metastatic disease of unknown etiology RADIATION DOSAGE (If Supplied By Facility): CTDIvol = ( 20.91 ) mGy, DLP = ( 1971.43 ) mGycm TECHNIQUE: Transaxial imaging was performed without the administration of intravenous contrast material. Individualized dose optimization techniques were used for this CT. COMPARISON: No relevant priors. FINDINGS: CHEST Focal infiltrate in the posterior lateral aspect of the right upper lobe abutting the right minor fissure. Patchy infiltrate is also seen in both lower lobes with small bilateral pleural effusions. There is a 1.7 cm x 1.3 cm spiculated nodule in the posterior left upper lobe. There are also 2 small nodular densities seen in the posterior aspect of the right upper lobe abutting the major fissure. The larger nodule measures 7.8 mm. Faint nodules are also seen within the infiltrate in the superior aspect of the right upper lobe. There is no demonstrated pleural abnormality. Sternal cerclage wires and vascular clips are present from a prior sternotomy and coronary artery bypass graft procedure (CABG). There are calcifications of the coronary arteries. There are multiple small lymph nodes within the mediastinum, which are normal in size and morphology most compatible with reactive lymph hyperplasia. Normal hilar regions. Normal unenhanced pulmonary arteries. There is atherosclerotic calcification of the aortic arch with tortuosity and elongation of the aortic arch and descending thoracic aorta. There are degenerative changes of the thoracic spine. Heterogeneous appearance of the thoracic vertebrae with focal areas of decreased density in keeping with metastatic disease. Bony destruction of the anterolateral aspect of the right fifth rib with the soft tissue density. There is also evidence of a partial destruction of the right third rib anterolaterally. ABDOMEN Normal liver. Multiple small gallstones and sludge seen within the gallbladder lumen. Normal spleen. Normal pancreas. Normal bilateral adrenal glands. Normal right kidney. Normal left kidney. Normal visualized stomach. Normal small intestine. There are multiple colonic diverticula consistent with diverticulosis. The appendix is visualized and appears normal. There is diffuse atherosclerotic calcification of the abdominal aorta., Endoluminal stent is seen within the distal abdominal aorta. The distal abdominal aorta as a transverse dimension of 3.6 cm.. Normal inferior vena cava. Normal retroperitoneum. Normal abdominal wall. Heterogeneous appearance of the lumbar vertebrae. PELVIS Distended urinary bladder. Central prostatic calcification. Normal visualized small intestine. Normal visualized colon. There is no pelvic fluid. There is no pelvic lymphadenopathy or mass lesion. There is diffuse atherosclerotic calcification of the pelvic arteries. CT/CT Chest, Abd, Pelvis WO Cont IMPRESSION: Nodular density in the left upper lobe as well as in the right lung base with the patchy infiltrates and small bilateral effusions. Bony metastasis.] Destruction. Endoluminal stent graft is seen within the mildly dilated infrarenal abdominal aorta. Electronically Signed: Yobany Wilhelm MD at 11:30 EST ,
[2022-03-17 08:49] LABS: PTHIN 14.3 pg/mL (18.4-80.1)
[2022-03-17 09:09] LABS: AST(SGOT) 60 U/L (15-37); Alanine Aminotransfer ALT/SGPT 26 U/L (16-61); Albumin, Serum 1.9 g/dL (3.2-5.0); Alkaline Phosphatase 242 U/L (45-117); Bilirubin, Direct 0.24 mg/dL (0.00-0.30); Globulin 4.1 g/dL (2.2-4.2)
[2022-03-17] MEDS: 0.9% Saline Lock 10 ML Syringe IV ×2 (09:19→14:51)
[2022-03-17] MEDS: Metoprolol(XL)Succ 25 MG Tablet PO ×2 (10:05→20:45)
[2022-03-17] MEDS: Heparin Injection (Vial) 5,000 UNIT/ML VIAL 5000 UNIT SC ×2 (10:06→20:46)
[2022-03-17] MEDS: Sodium Ferric Gluconat 250 MG in 0.9% Normal Saline 250 ML 135 MG IV (10:22)
--- NOTE | 2022-03-17 11:26 | PCM.PN.HOSP ---
Subjective Subjective Follow-up on hypoxia/pneumonia/acute on chronic back pain: Patient was seen and examined. He complains of severe mid back and low back pain. MRI of the cervical and thoracic spine showed extensive metastatic disease. CT of the chest, abdomen and pelvis showed nodular densities in the left upper lobe as well as in the right lung base with patchy infiltrates and small bilateral effusions. Objective Data Objective Data Vital Signs: Vital Signs Temp Pulse Resp BP Pulse Ox O2 Del Method O2 Flow Rate 97.6 F L 67 18 131/74 H 95 Nasal Cannula 2 03/17/22 08:00 03/17/22 10:05 03/17/22 08:00 03/17/22 08:00 03/17/22 09:26 03/17/22 09:26 03/17/22 09:26 Oxygen Flow Rate (L/min) 2 Oxygen Delivery Method Nasal Cannula Weight: 88.3 kg Body Mass Index (BMI) 23.8 Intake & Output: Intake and Output for Last 24 Hours 03/15/22 03/16/22 03/17/22 23:59 23:59 23:59 Intake Total 3270 / 3270 1270 / 1270 1367.5 / 1367.5 Output Total 1825 / 2375 1600 / 1600 850 / 850 Balance 1445 / 895 -330 / -330 517.5 / 517.5 Medical Nutrition Assessment Dietitian: Malnutrition Criteria Met Start: 03/14/22 20:16 Freq: Status: Active Protocol: Document 03/14/22 15:16 [facility] (Rec: 03/14/22 20:16 [facility] [id number]) Nutrition Malnutrition Evidence of Malnutrition Exists Yes Malnutrition (moderate): Acute Illness/Injury Evidenced By Suboptimal Energy Intake ( Moderate),Weight Loss ( Moderate),Physical Changes ( Mild) Clinical Problem Acute Disease or Injury Related Malnutrition Etiology related to physiological changes causing decreased oral intakes Signs/Symptoms as evidenced by significant weight loss of 9.8% in ~1.5 months, mild muscle wasting per NFPA (clavicles, temples, etc.) and poor oral intakes of less than 75% of estimated energy needs for at least 7 days. Status Active Problem Recommendation Dietitian Recommendations/Changes Continue with Regular - General diet. Order Ensure Plus High Protein 120mL 4x/d w/ medpass and Magic Cup BID w/ lunch and dinner to help increase oral intakes. Will reassess oral intakes upon f/u and modify interventions as needed. Lab / Micro Data Result Diagrams: 03/17/22 05:35 03/17/22 05:35 Labs: Laboratory Results - last 24 hr 03/13/22 11:30: Diff Path Review Reviewed 03/14/22 06:50: Diff Path Review Reviewed 03/16/22 05:30: Total Protein (PEP) Cancelled, Albumin (PEP) Cancelled, Globulin (PEP) Cancelled, Albumin/Globulin (PEP) Cancelled, Zgigz-2-Xkayfwcpl Cancelled, Ewrhw-7-Zuzqdexam Cancelled, Beta Globulins Cancelled, Gamma Globulins Cancelled, M-Omid Cancelled, PEP Note Cancelled, PEP Interpretation Cancelled, Ur Immunofix PEP Note Cancelled 03/16/22 05:30: Retic Count 1.90 H, Immature Retic Fraction 33.40 H, Retic Hgb Equivalent 30.7 03/16/22 05:30: Iron 29 L, TIBC 167 L, Iron Saturation 17.4, Ferritin 1010 H 03/16/22 16:54: Hgb 7.6 L, Hct 24.1 L 03/17/22 05:35: Sodium 146 H, Potassium 4.1, Chloride 120 H, Carbon Dioxide 19.0 L, BUN 40 H, Creatinine 1.23, Estim Creat Clear Calc 56.84, Est GFR (MDRD) Af Amer 73, Est GFR (MDRD) Non-Af 61, BUN/Creatinine Ratio 32.5 H, Glucose 114 H, Calcium 10.5 H, Phosphorus 3.0, Albumin 1.3 L 03/17/22 05:35: WBC 9.7, RBC 2.51 L, Hgb 7.2 L, Hct 24.1 L, MCV 96.0 H, MCH 28.7, MCHC 29.9 L, RDW Std Deviation 60.1 H, RDW Coeff of George 17.1 H, Plt Count 271, MPV 10.3, Immature Gran % (Auto) 2.600 H, Neut % (Auto) 73.6 H, Lymph % (Auto) 7.2 L, Kingfisher % (Auto) 13.3 H, Eos % (Auto) 2.8, Baso % (Auto) 0.5, Absolute Neuts (auto) 7.1, Absolute Lymphs (auto) 0.70 L, Nucleated RBC % 0.5 03/17/22 05:35: PTH Intact 14.3 L 03/17/22 05:35: Total Bilirubin 0.60, Direct Bilirubin 0.24, AST 60 H, ALT 26, Alkaline Phosphatase 242 H, Total Protein 6.0 L, Albumin 1.9 L, Globulin 4.1 03/17/22 07:55: Blood Type AB POSITIVE, Antibody Screen NEGATIVE, Crossmatch See Detail Micro: Microbiology 03/13/22 16:50 Mucosa - Nasopharyngeal Respiratory Panel (PCR) - Final 03/13/22 11:35 Nasal Secretion SARS-CoV-2 & FLU Antigen (Rapid) - Final Radiography Diagnostic Testing: Radiology Impression Thoracic Spine MRI 03/16/22 13:21 IMPRESSION: Findings consistent with extensive cervical and thoracic metastatic disease throughout the osseous elements. No significant spinal canal narrowing or foraminal narrowing. No significant disc destruction. Consider whole-body nuclear medicine bone scan for further whole body analysis. Electronically Signed: Jae Koch, at 17:03 EST Reading Location ID and State: [facility] [place] / [place] , Service support , Physical Exam Narrative Physical exam: General: Alert, Oriented x3, Cooperative, on 2 L of oxygen HEENT: Atraumatic Oral: Moist Mucosa Neck: Supple Lungs: Diminished to auscultation Cardiovascular: HS I+II, regular, no murmurs Abdomen: Bowel Sounds Present, Soft, tenderness over the lower back Extremities: No edema Skin: No rashes, No breakdown Neurological: Grossly intact Psych/Mental Status: Appropriate Assessment & Plan Assessment/Plan (1) Acute kidney injury: (2) Adult failure to thrive: (3) Back pain: (4) Weakness: PLAN: Plan 1. Severe metastatic spine disease, unclear etiology for now CT chest/abdomen/pelvis as well as chest x-ray showed left nodular density in the left upper lobe Oncology consult, check PSA, SPep, free kappa light chains 2. Abnormal imaging?nodular spiculated left upper lobe, probably malignant Oncology consulted- we will follow-up on recommendations 3. Acute kidney injury, likely prerenal from dehydration, improved, almost back to baseline Admitting creatinine was 3.65, creatinine today is 1.23 Renal ultrasound is unremarkable Nephrology consulted and following Trend lab 4. Hypercalcemia, persistent, likely related to #1 Will check PTH, workup for #1 pending Re-evaluate levels in am 5. Intractable nausea, vomiting and diarrhea likely secondary to gastroenteritis, resolved Rapid COVID-19 antigen test, respiratory panel as well as influenza A/B have been negative 6. Anemia, drop in hemoglobin from 11.7 to 7.2 today, unclear etiology No retroperitoneal bleed seen on CT abdomen pelvis Will transfuse 2 units of pRBC, IV Venofer x 1 Stool for occult blood is pending 7. Acute on chronic back pain, persistent, secondary to extensive spinal bony lesions Continue on MS Contin, oxycodone as needed, Lidoderm patches 8. History of AAA/CAD/hypertension/dyslipidemia, aspirin, statin, metoprolol 9. Hypothyroidism, continue on synthroid 10. DVT PPx- Heparin SC I updated and discussed patient's overall care with him and the and his sister at the bedside. I also discussed CODE STATUS. Patient confirmed that he wants to be full code. We will wait for oncology consult Charges/Coding Visit Charges Inpatient E&M: 18097 Subs Hosp L3
[2022-03-17 14:08] LABS: Immunoglobulin A 104 mg/dL (61-437); Immunoglobulin G 381 mg/dL (603-1613)
[2022-03-17] MEDS: HYDROmorphone 1 MG/ML Syringe IV (14:49)
--- NOTE | 2022-03-17 15:19 | CHAPLAIN ---
Type of Pastoral Visit _x__ Initial Visit ___ Follow-up Visit ___ On-call Visit ___ General Patient Visit ___ Spiritual Assessment ___ Family Conference ___ Bereavement ___ Rapid Response ___ Code Blue ___ Other (describe below) Pastoral Care Referral From ___ Patient _x__ Family ___ Nurse ___ Physician ___ Geographical Historian ___ Junior Staff Accountant _x__ Other (describe below) Sacrament/Intervention _x__ Active listening ___ Anointing ___ Mandaen ___ Bereavement ___ Communion ___ Josi exploration ___ ___ Life review ___ Prayer ___ Reconciliation ___ Sacrament of Sick _x__ Supportive presence ___ Wedding ___ Other (describe below) Pastoral Comments this manifold operator was called by and to Humanities And Languages Professorlife science technical officer of [employer] as requested by spouse of patient; when arrived the spouse had returned to the patient room where DR was consulting with pt and family; Humanities And Languages Professor informs this manifold operator that DR is talking with pt now about diagnosis and prognosis due to new information concerning very serious illness; entering the room the DR was explaining situation to patient and family about the need to make advanced medical care decisions; pt was having some difficulty with being alert although he answered questions; spouse and sister were actively intervening in the conversation; spouse and sister spoke from different perspectives about wishes for life support or no life support; pt at this time wants to be kept alive; reiterates that medical team will follow his wishes and they will give him the best care but also asks pt to consider everything and think his decision over; DR left the room and spouse invited this manifold operator to talk with the patient and asked if a prayer could be given; sister spoke up and stated that her brother is not spiritism and does not want that; pt stated that he is tired and needs to rest; spouse repeated question if manifold operator could at least pray for them; pt declined; this manifold operator assured pt that everything is in his hands and in his control about how he receives support and care; pt agreed that manifold operator could return at another time; sister states that maybe manifold operator can come back when you are alone; sister states I am a travelling nurse
[2022-03-17] MEDS: Atorvastatin Calcium 80 MG Tablet PO (20:46)
[2022-03-17] MEDS: morphine SR 15 MG Tablet PO (21:11)
[2022-03-17] MEDS: Ensure Plus High Protein 120 ML LIQUID PO (21:11)
[2022-03-18] VITALS (10 sets, daily range): BP systolic 131–151; BP diastolic 76–86; PULSE 80–93; RESP 17–20; TEMP 36.4–36.7; O2SAT 93–95
[2022-03-18] MEDS: Levothyroxine 112 MCG Tablet PO (05:14)
[2022-03-18] MEDS: 0.9% Saline Lock 10 ML Syringe IV ×2 (05:16→11:04)
[2022-03-18 05:48] LABS: Hemoglobin 9.8 g/dL (13.0-16.5); Mean Corp Hgb Conc 31.6 g/dL (32-36); Mean Corpuscular Hgb 29.1 pg (27.0-32.0); Mean Platelet Vol. 10.3 fl (6.2-12.0); POSITIVE COUNT YES; POSITIVE DIFFERENTIAL YES; POSITIVE MORPHOLOGY YES; Platelet Count 263 K/mm3 (150-450); RBC Distribution Width SD 56.1 fl (35.1-43.9); Red Blood Count 3.37 M/mm3 (4.6-6.2); White Blood Count 12.8 K/mm3 (4.4-11.0)
[2022-03-18 06:06] LABS: Differential Indicated MANUAL DIFF
[2022-03-18 06:28] LABS: ALB/GLOB Ratio 0.4 RATIO (0.9-2.4); AST(SGOT) 44 U/L (15-37); Alanine Aminotransfer ALT/SGPT 20 U/L (16-61); Albumin, Serum 1.8 g/dL (3.2-5.0); Alkaline Phosphatase 263 U/L (45-117); Anion Gap 9 (5-15); BUN 34 mg/dL (7-18); BUN/Creat Ratio 31.2 RATIO (10-20); Calcium,Total 10.7 mg/dL (8.5-10.1); Chloride 118 mmol/L (98-107); Creatinine, Serum 1.09 mg/dL (0.70-1.30); EST Glomerular Filtration Rate 70 mL/min (>60); Est Glom Filt Rate - Afr Amer 84 mL/min (>60); Estimated Creatinine Clearance 64.14 ml/min; Globulin 4.3 g/dL (2.2-4.2); Glucose 101 mg/dL (74-106); Protein, Total 6.1 g/dL (6.4-8.2); Sodium Level 146 mmol/L (136-145)
[2022-03-18 06:37] LABS: Eosinophil 3 % (0-5); Lymphocyte 4 % (19-41); Metamyelocyte 1 % (0-1); Monocyte 8 % (0-10); Neutrophil-Segmented 83 % (47-70); Promyelocyte 1 % (0-0); Total Cells Counted 100 (MANUAL DIFF)
[2022-03-18 06:38] LABS: Absolute Neutrophil Count 10.9 X10^3/uL (2.0-7.7); Neutrophil # 10.88 X10^3/uL (2.7-7.7)
[2022-03-18 06:39] LABS: Absolute Lymphocyte Count 0.51 X10^3/uL (0.83-4.51); Lymphocyte # 0.51 X10^3/ul (0.83-4.51); Platelet Estimate ADEQUATE (ADEQ)
[2022-03-18 06:40] LABS: Polychromasia RARE
[2022-03-18] MEDS: oxyCODONE 5 MG Tablet 10 MG PO ×2 (07:51→15:57)
[2022-03-18] MEDS: Aspirin E.C. 81 MG Tablet PO (07:52)
[2022-03-18] MEDS: Metoprolol(XL)Succ 25 MG Tablet PO ×2 (08:02→21:46)
[2022-03-18] MEDS: Lidocaine 5% Patch 2 PATCH TOPICAL (08:03)
--- NOTE | 2022-03-18 08:55 | CON.PCM.ON_ITS ---
Assessment & Plan Assessment/Plan (1) Adult failure to thrive: Status: Acute Code(s): R62.7 - Adult failure to thrive (2) Back pain: Status: Acute Code(s): M54.9 - Dorsalgia, unspecified Plan: May be due to metastatic disease. (3) Lung nodule: Status: Acute Code(s): R91.1 - Solitary pulmonary nodule Plan: Suggest Pulmonary consult to determine if Pt needs FOB for diagnosis. 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 Will check SPEP,SFLC as they are pending. Will follow with further management suggestion as new information become available. HPI Consult Data Date of Service:: 03/18/22 PCP / Referring Provider: Dr. Omer Moss MD Attending: Dr. Maira Ribera MD Chief Complaint Chief Complaint: Asked to see Pt with bony lesion suggestive of malignancy. History of Present Illness History of Present Illness: [id number].o.man presented withGeneral weakness, acute renal failure and back pain associated with hypercalcemia. Thoracic MRI on showed findings consistent with extensive cervical, thoracic metastatic bony disease. CT of the chest, abdomen and pelvis on 03/17/2022 showed nodular density in the left upper lobe as well as right lung base with patchy infiltrates and small bilateral effusions, bony metastasis with destruction of third and fifth right ribs. Advanced Directives Power of Adult Education Professional: No Living Will: No PFSH Medical History (Updated 03/18/22 @ 09:[address] Deonte Hines MD) AAA (abdominal aortic aneurysm) Acute back pain with sciatica Arthritis HTN (hypertension) Hypercholesteremia Hypothyroidism Kidney disease Home Medications atorvastatin 80 mg tablet 80 mg PO QHS 10/22/21 [History Last Taken 03/12/22] levothyroxine 112 mcg tablet 1 tab PO DAILY 10/22/21 [History Last Taken 03/11/22] lisinopril 5 mg tablet 1 tab PO DAILY 10/22/21 [History Last Taken 03/12/22] metoprolol succinate 25 mg tablet,extended release 24 hr 25 mg PO BID 10/22/21 [History Last Taken 03/12/22] oxycodone 10 mg tablet 10 mg PO TID PRN pain 5 days #15 tabs 10/22/21 [Rx Last Taken 03/10/22] acetaminophen 500 mg tablet 1,000 mg PO Q6H PRN Pain 03/13/22 [History Last Taken 03/12/22] aspirin 81 mg tablet,delayed release 81 mg PO DAILY 03/13/22 [History Last Taken 2 Days Ago ~03/11/22] cholecalciferol (vitamin D3) 25 mcg (1,000 unit) capsule 25 mcg PO DAILY SUPPLEMENT 03/13/22 [History Last Taken 03/11/22] diphenhydramine HCl 50 mg capsule 100 mg PO QHS PRN Insomnia 03/13/22 [History Last Taken Unknown] omeprazole 20 mg capsule,delayed release 20 mg PO DAILY GERD 03/13/22 [History Last Taken 03/13/22] tizanidine 4 mg tablet 4 - 8 mg PO TID PRN Pain 03/13/22 [History Last Taken 03/12/22] Allergy/AdvReac Type Severity Reaction Status Date / Time No Known Allergies Allergy Verified 03/13/22 10:36 Family History (Updated 03/13/22 @ 13:[address] Vega Spears MD) Father Heart disease Mother No problems noted. Surgical History S/P triple vessel bypass Social History Smoking Status: Former smoker ROS Constitutional Constitutional: Reports fatigue ENT HEENT: Denies dysphagia Cardiovascular Cardiovascular: Denies chest pain or diaphoresis Respiratory/Chest Respiratory/Chest: Denies chest tightness, cough or dyspnea Gastrointestinal Gastrointestinal: Denies abdominal pain Genitourinary Genitourinary: Denies change in urinary stream Musculoskeletal Musculoskeletal: Reports back pain Integumentary Integumentary: Denies jaundice Neurologic Neurologic: Denies headache(s) or numbness Psychiatric Psychiatric: Denies anxiety or depression Endocrine Endocrinology: Denies cold intolerance, flushing or heat intolerance Hematologic/Lymphatic Hematologic/Lymphatic: Denies easy bleeding, easy bruising or lymphadenopathy Physical Exam Narrative Elderly man,lying in bed Const alert and oriented x3 HEENT normocephalic Eyes PERRL and EOMs intact bilaterally Neck no lymphadenopathy Lymph Lymphatic: no lymphadenopathy noted Resp clear to auscultation bilaterally Cardio regular rate, regular rhythm, S1 normal heart sound and S2 normal heart sound GI normal to inspection, nondistended, normoactive bowel sounds Extremity normal to inspection and no clubbing, cyanosis or edema Skin no rashes or lesions noted Neuro CN's II-XII intact bilaterally, moves all extremities and no focal motor deficits Psych mental status grossly normal Vital Signs Temperature 97.8 F 03/18/22 07:58 Temperature Source Oral 03/18/22 07:58 Pulse Rate 88 03/18/22 08:02 Pulse Strength Normal (2+) 03/17/22 22:00 Respiratory Rate 20 H 03/18/22 07:58 Respiratory Effort Non-Labored 03/18/22 02:30 Respiratory Depth Normal 03/18/22 02:30 Respiratory Pattern Normal 03/18/22 02:30 Blood Pressure 139/86 H 03/18/22 07:58 Blood Pressure Mean 103 03/18/22 07:58 Blood Pressure Source Monitor 03/18/22 07:58 Blood Pressure Position Semi-Fowlers 03/18/22 07:58 Blood Pressure Location Left Arm 03/18/22 07:58 Pulse Ox 95 03/18/22 07:58 Oxygen Delivery Method Nasal Cannula 03/18/22 07:58 Oxygen Flow Rate (L/min) 2 03/18/22 07:58 Laboratory Results - last 24 hr 03/16/22 05:30: Total Protein (PEP) Cancelled, Albumin (PEP) Cancelled, Globulin (PEP) Cancelled, Albumin/Globulin (PEP) Cancelled, Maapw-1-Rcqewmpvc Cancelled, Fabke-8-Tcpgdgxfx Cancelled, Beta Globulins Cancelled, Gamma Globulins Cancelled, M-Omid Cancelled, PEP Note Cancelled, PEP Interpretation Cancelled, Ur Immunofix PEP Note Cancelled 03/17/22 05:35: Total Bilirubin 0.60, Direct Bilirubin 0.24, AST 60 H, ALT 26, Alkaline Phosphatase 242 H, Total Protein 6.0 L, Albumin 1.9 L, Globulin 4.1 03/17/22 07:55: Blood Type AB POSITIVE, Antibody Screen NEGATIVE, Crossmatch See Detail 03/18/22 04:54: WBC 12.8 H, RBC 3.37 L, Hgb 9.8 L, Hct 31.0 L, MCV 92.0, MCH 29.1, MCHC 31.6 L D, RDW Std Deviation 56.1 H, RDW Coeff of George 17.0 H, Plt Count 263, MPV 10.3, Neut % (Auto) Not Reportable, Absolute Neuts (auto) 10.9 H, Absolute Lymphs (auto) 0.51 L, Total Counted 100, Neutrophils % (Manual) 83 H, Lymphocytes % (Manual) 4 L, Monocytes % (Manual) 8, Eosinophils % (Manual) 3, Metamyelocytes % 1, Promyelocytes % 1 H, Diff Path Review July, Platelet Estimate ADEQUATE, Polychromasia RARE 03/18/22 04:54: Sodium 146 H, Potassium 4.0, Chloride 118 H, Carbon Dioxide 19.0 L, Anion Gap 9, BUN 34 H, Creatinine 1.09, Estim Creat Clear Calc 64.14, Est GFR (MDRD) Af Amer 84, Est GFR (MDRD) Non-Af 70, BUN/Creatinine Ratio 31.2 H, Glucose 101, Calcium 10.7 H, Total Bilirubin 1.10 H, AST 44 H, ALT 20, Alkaline Phosphatase 263 H, Total Protein 6.1 L, Albumin 1.8 L, Globulin 4.3 H, Albumin/Globulin Ratio 0.4 L Diagnostic Data Brain CT 03/13/22 11:04 IMPRESSION: Chronic involutional changes of the brain. Small air-fluid level in the right maxillary sinus. Electronically Signed: Yobany Wilhelm MD at 12:11 EST , Chest X-Ray 03/13/22 11:22 IMPRESSION: Hyperinflation. Stable examination. Stable nodular density in the left mid lung as well as at the right lung base. Compressible destruction of the right fifth rib anterolaterally. Electronically Signed: Yobany Wilhelm MD at 12:13 EST , Renal Ultrasound 03/13/22 13:49 IMPRESSION: Normal ultrasound of the kidneys and urinary bladder. Electronically Signed: Yobany Wilhelm MD at 14:58 EST , KUB X-Ray 03/14/22 10:31 IMPRESSION: Nonspecific bowel gas pattern. Atherosclerosis. Electronically Signed: Monica Huerta MD at 11:02 EST , Thoracic Spine MRI 03/16/22 13:21 IMPRESSION: Findings consistent with extensive cervical and thoracic metastatic disease throughout the osseous elements. No significant spinal canal narrowing or foraminal narrowing. No significant disc destruction. Consider whole-body nuclear medicine bone scan for further whole body analysis. Electronically Signed: Jae Koch DO at 17:03 EST , Chest/Abdomen/Pelvis CT 03/17/22 08:34 IMPRESSION: Nodular density in the left upper lobe as well as in the right lung base with the patchy infiltrates and small bilateral effusions. Bony metastasis.] Destruction. Endoluminal stent graft is seen within the mildly dilated infrarenal abdominal aorta. Electronically Signed: Yobany Wilhelm MD at 11:30 EST ,
[2022-03-18] MEDS: Heparin Injection (Vial) 5,000 UNIT/ML VIAL 5000 UNIT SC ×2 (11:04→21:45)
--- NOTE | 2022-03-18 11:04 | PCM.PN.HOSP ---
Subjective Subjective Follow-up on hypoxia/pneumonia/acute on chronic back pain: Patient was seen and examined. His pain is fairly controlled. He stated the pain regimen is working. Patient was transfused 2 units of packed RBCs yesterday. Objective Data Objective Data Vital Signs: Vital Signs Temp Pulse Resp BP Pulse Ox O2 Del Method O2 Flow Rate 97.8 F 88 20 H 139/86 H 95 Nasal Cannula 2 03/18/22 09:00 03/18/22 09:00 03/18/22 09:00 03/18/22 09:00 03/18/22 09:00 03/18/22 09:00 03/18/22 09:00 Oxygen Flow Rate (L/min) 2 Oxygen Delivery Method Nasal Cannula Weight: 89.7 kg Body Mass Index (BMI) 23.8 Intake & Output: Intake and Output for Last 24 Hours 03/16/22 03/17/22 03/18/22 23:59 23:59 23:59 Intake Total 1270 / 1270 2602.5 / 2602.5 100 / 100 Output Total 1600 / 1600 1100 / 1100 975 / 975 Balance -330 / -330 1502.5 / 1502.5 -875 / -875 Medical Nutrition Assessment Dietitian: Malnutrition Criteria Met Start: 03/14/22 20:16 Freq: Status: Active Protocol: Document 03/14/22 15:16 [facility] (Rec: 03/14/22 20:16 [facility] [id number]) Nutrition Malnutrition Evidence of Malnutrition Exists Yes Malnutrition (moderate): Acute Illness/Injury Evidenced By Suboptimal Energy Intake ( Moderate),Weight Loss ( Moderate),Physical Changes ( Mild) Clinical Problem Acute Disease or Injury Related Malnutrition Etiology related to physiological changes causing decreased oral intakes Signs/Symptoms as evidenced by significant weight loss of 9.8% in ~1.5 months, mild muscle wasting per NFPA (clavicles, temples, etc.) and poor oral intakes of less than 75% of estimated energy needs for at least 7 days. Status Active Problem Recommendation Dietitian Recommendations/Changes Continue with Regular - General diet. Order Ensure Plus High Protein 120mL 4x/d w/ medpass and Magic Cup BID w/ lunch and dinner to help increase oral intakes. Will reassess oral intakes upon f/u and modify interventions as needed. Lab / Micro Data Result Diagrams: 03/18/22 04:54 03/18/22 04:54 Labs: Laboratory Results - last 24 hr 03/17/22 07:55: Blood Type AB POSITIVE, Antibody Screen NEGATIVE, Crossmatch See Detail 03/18/22 04:54: WBC 12.8 H, RBC 3.37 L, Hgb 9.8 L, Hct 31.0 L, MCV 92.0, MCH 29.1, MCHC 31.6 L D, RDW Std Deviation 56.1 H, RDW Coeff of George 17.0 H, Plt Count 263, MPV 10.3, Neut % (Auto) Not Reportable, Absolute Neuts (auto) 10.9 H, Absolute Lymphs (auto) 0.51 L, Total Counted 100, Neutrophils % (Manual) 83 H, Lymphocytes % (Manual) 4 L, Monocytes % (Manual) 8, Eosinophils % (Manual) 3, Metamyelocytes % 1, Promyelocytes % 1 H, Diff Path Review July, Platelet Estimate ADEQUATE, Polychromasia RARE 03/18/22 04:54: Sodium 146 H, Potassium 4.0, Chloride 118 H, Carbon Dioxide 19.0 L, Anion Gap 9, BUN 34 H, Creatinine 1.09, Estim Creat Clear Calc 64.14, Est GFR (MDRD) Af Amer 84, Est GFR (MDRD) Non-Af 70, BUN/Creatinine Ratio 31.2 H, Glucose 101, Calcium 10.7 H, Total Bilirubin 1.10 H, AST 44 H, ALT 20, Alkaline Phosphatase 263 H, Total Protein 6.1 L, Albumin 1.8 L, Globulin 4.3 H, Albumin/Globulin Ratio 0.4 L Micro: Microbiology 03/13/22 16:50 Mucosa - Nasopharyngeal Respiratory Panel (PCR) - Final 03/13/22 11:35 Nasal Secretion SARS-CoV-2 & FLU Antigen (Rapid) - Final Radiography Diagnostic Testing: Radiology Impression Chest/Abdomen/Pelvis CT 03/17/22 08:34 IMPRESSION: Nodular density in the left upper lobe as well as in the right lung base with the patchy infiltrates and small bilateral effusions. Bony metastasis.] Destruction. Endoluminal stent graft is seen within the mildly dilated infrarenal abdominal aorta. Electronically Signed: Yobany Wilhelm MD at 11:30 EST , Physical Exam Narrative Physical exam: General: Alert, Oriented x3, Cooperative, on 2 L of oxygen HEENT: Atraumatic Oral: Moist Mucosa Neck: Supple Lungs: Diminished to auscultation Cardiovascular: HS I+II, regular, no murmurs Abdomen: Bowel Sounds Present, Soft, tenderness over the lower back Extremities: No edema Skin: No rashes, No breakdown Neurological: Grossly intact Psych/Mental Status: Appropriate Assessment & Plan Assessment/Plan (1) Acute kidney injury: (2) Adult failure to thrive: (3) Back pain: (4) Weakness: PLAN: Plan 1. Severe metastatic spine disease, unclear etiology for now CT chest/abdomen/pelvis as well as chest x-ray showed left nodular density in the left upper lobe Oncology consulted PSA, SPep, free kappa light chains pending 2. Abnormal imaging?nodular spiculated left upper lobe, probably malignant 3. Probable pneumonia with infiltrates seen in the bilateral lower lobes as well as right upper lobe, on CT of the chest, Started on IV ceftriaxone and azithromycin yesterday; will continue same 4. Acute kidney injury, likely prerenal from dehydration, improved, almost back to baseline Admitting creatinine was 3.65, creatinine today is 1.23 Renal ultrasound is unremarkable Nephrology consulted and following Trend lab 5. Hypernatremia, secondary to dehydration, sodium is 146, encourage use of free water 6. Hypercalcemia, persistent, likely related to #1 Corrected calcium is 12.46 We will start on zoledronic acid 4 mg IV x1 Will trend labs 7. Intractable nausea, vomiting and diarrhea likely secondary to gastroenteritis, resolved Rapid COVID-19 antigen test, respiratory panel as well as influenza A/B have been negative 8. Anemia, iron deficiency anemia , drop in hemoglobin from 11.7 to 7.2 today, unclear etiology No retroperitoneal bleed seen on CT abdomen pelvis Status post 2 units of pRBC, IV Venofer x 1 on 03/18/22 Stool for occult blood is pending 9. Acute on chronic back pain, persistent, secondary to extensive spinal bony lesions Continue on MS Contin, oxycodone as needed, Lidoderm patches 10. Malnutrition, moderate, financial sales consultant consulted, continue on supplements 11. History of AAA/CAD/hypertension/dyslipidemia, aspirin, statin, metoprolol 12. Hypothyroidism, continue on synthroid 13. DVT PPx- Heparin SC Charges/Coding Visit Charges Inpatient E&M: 72786 Subs Hosp L3
[2022-03-18] MEDS: morphine SR 15 MG Tablet PO ×2 (11:05→21:45)
[2022-03-18 13:24] LABS: GGTP 217 U/L (15-85)
[2022-03-18 13:35] LABS: PSA, Free 0.24 ng/mL; PSA, Free % 13.6 % (.)
[2022-03-18] MEDS: Ensure Plus High Protein 120 ML LIQUID PO ×2 (14:27→21:55)
[2022-03-18 14:53] LABS: Immunoglobulin M 81 mg/dL (15-143)
--- NOTE | 2022-03-18 14:53 | NURSING ---
1445- at bedside. she told this nurse that she was having a pharmacy intern coming at 1500 to have paperwork signed by pt. this nurse said that she did not recommend that d/t pt currently being on narcotics and while in the hospital. said that pt has been on narcotics for months and pt said he wanted to do this and get it over with. pt wassleeping, but wakes easily for vs but appears to doze right back off to sleep. when asked if he has used his i.s since this nurse was last in the room, he replied, im not an addict. i explained what i was referring to (the i.s) and commented that he gets confused at times.
[2022-03-18 15:33] LABS: Pathologist Review Reviewed
--- NOTE | 2022-03-18 15:54 | CHAPLAIN ---
Type of Pastoral Visit ___ Initial Visit _x__ Follow-up Visit ___ On-call Visit ___ General Patient Visit ___ Spiritual Assessment ___ Family Conference ___ Bereavement ___ Rapid Response ___ Code Blue ___ Other (describe below) Pastoral Care Referral From ___ Patient _x__ Family ___ Nurse ___ Physician ___ Shook Splicer ___ Shirring Tender ___ Other (describe below) Sacrament/Intervention _x__ Active listening ___ Anointing ___ Temple ___ Bereavement ___ Communion _x__ Josi exploration ___ ___ Life review _x__ Prayer ___ Reconciliation ___ Sacrament of Sick _x__ Supportive presence ___ Wedding ___ Other (describe below) Pastoral Comments patient slept the whole time of this visit; spouse is in the room and welcomes the visit and prayers; spouse gives more details about their life, josi practices, and wishes for care; spouse states that pt is a born again believer but not attending latter-day anywhere; pt is easily irritated and can be abrasive per his 's account; spouse also states that yesterday was so overwhelming and I was anxious and that the sister of the patient is an issue for them; spouse asks for prayer and then also prays herself
[2022-03-18] MEDS: Atorvastatin Calcium 80 MG Tablet PO (21:45)
[2022-03-18 22:06] LABS: Free Kappa Light Chains 27.3 mg/L (3.3-19.4); Free Lambda Light Chains 24.5 mg/L (5.7-26.3); PROEL- A/G Ratio 0.7 (0.7-1.7); PROEL- Albumin 2.1 g/dL (2.9-4.4); PROEL- Alpha-1 Globulin 0.6 g/dL (0.0-0.4); PROEL- Alpha-2 Globulin 1.4 g/dL (0.4-1.0); PROEL- Beta Globulin 0.7 g/dL (0.7-1.3); PROEL- Gamma Globulin 0.4 g/dL (0.4-1.8); PROEL- TOTAL PROTEIN 5.1 g/dL (6.0-8.5)
[2022-03-19] VITALS (9 sets, daily range): BP systolic 96–141; BP diastolic 69–91; PULSE 90–100; RESP 16–18; TEMP 36.4–36.7; O2SAT 93–95
[2022-03-19] MEDS: oxyCODONE 5 MG Tablet 10 MG PO (04:55)
[2022-03-19] MEDS: Levothyroxine 112 MCG Tablet PO (04:55)
[2022-03-19 05:36] LABS: Hematocrit 33.2 % (40-54); Hemoglobin 10.8 g/dL (13.0-16.5); Mean Corp Hgb Conc 32.5 g/dL (32-36); Mean Corpuscular Hgb 29.8 pg (27.0-32.0); Mean Corpuscular Volume 91.7 fL (80-94); Mean Platelet Vol. 9.9 fl (6.2-12.0); POSITIVE COUNT YES; POSITIVE MORPHOLOGY YES; Platelet Count 265 K/mm3 (150-450); RBC Distribution Width CV 17.3 % (11.6-14.6); RBC Distribution Width SD 57.3 fl (35.1-43.9); Red Blood Count 3.62 M/mm3 (4.6-6.2); White Blood Count 13.3 K/mm3 (4.4-11.0)
[2022-03-19 05:48] LABS: Differential Indicated MANUAL DIFF
[2022-03-19 06:02] LABS: ALB/GLOB Ratio 0.4 RATIO (0.9-2.4); AST(SGOT) 41 U/L (15-37); Alanine Aminotransfer ALT/SGPT 18 U/L (16-61); Albumin, Serum 1.9 g/dL (3.2-5.0); Alkaline Phosphatase 231 U/L (45-117); Anion Gap 10 (5-15); BUN 34 mg/dL (7-18); BUN/Creat Ratio 26.4 RATIO (10-20); Calcium,Total 11.8 mg/dL (8.5-10.1); Chloride 114 mmol/L (98-107); Creatinine, Serum 1.29 mg/dL (0.70-1.30); EST Glomerular Filtration Rate 57 mL/min (>60); Est Glom Filt Rate - Afr Amer 69 mL/min (>60); Globulin 4.8 g/dL (2.2-4.2); Glucose 106 mg/dL (74-106); Potassium 3.8 mmol/L (3.5-5.1); Protein, Total 6.7 g/dL (6.4-8.2); Sodium Level 144 mmol/L (136-145)
[2022-03-19 06:29] LABS: Eosinophil 5 % (0-5); Lymphocyte 9 % (19-41); Metamyelocyte 2 % (0-1); Monocyte 8 % (0-10); Neutrophil-Band 1 % (0-5); Neutrophil-Segmented 75 % (47-70); Total Cells Counted 100 (MANUAL DIFF)
[2022-03-19 06:30] LABS: Absolute Neutrophil Count 10.4 X10^3/uL (2.0-7.7); Platelet Estimate ADEQUATE (ADEQ)
[2022-03-19 06:31] LABS: Red Cell Morphology NORM C+C NORMAL (NORM C&C)
[2022-03-19] MEDS: Heparin Injection (Vial) 5,000 UNIT/ML VIAL 5000 UNIT SC ×2 (07:46→20:22)
[2022-03-19] MEDS: Aspirin E.C. 81 MG Tablet PO (07:46)
[2022-03-19] MEDS: Metoprolol(XL)Succ 25 MG Tablet PO ×2 (07:46→20:25)
[2022-03-19 08:09] LABS: HEPATITIS B SURFACE AG Negative (Negative); Hep C Antibodies <0.1 s/co ratio (0.0-0.9); Hepatitis A IgM Antibody Negative (Negative); Hepatitis B Core AB IgM Negative (Negative)
[2022-03-19] MEDS: morphine SR 15 MG Tablet PO ×2 (09:19→20:23)
--- NOTE | 2022-03-19 10:34 | PCM.PN.REN ---
Subjective Subjective Following for DIMITRIS Resting in bed. No overnight events. Denies any complaints Objective Data Objective Data Vital Signs: Vital Signs Temp Pulse Resp BP Pulse Ox O2 Del Method O2 Flow Rate 97.6 F L 94 18 119/83 H 94 Nasal Cannula 2 03/19/22 08:50 03/19/22 08:50 03/19/22 08:50 03/19/22 08:50 03/19/22 08:50 03/19/22 08:50 03/19/22 08:50 Oxygen Flow Rate (L/min) 2 Oxygen Delivery Method Nasal Cannula Weight: 89.7 kg Body Mass Index (BMI) 23.8 Intake & Output: Intake and Output for Last 24 Hours 03/17/22 03/18/22 03/19/22 23:59 23:59 23:59 Intake Total 2602.5 / 2602.5 830 / 1030 761.25 / 761.25 Output Total 1100 / 1100 1225 / 1225 250 / 250 Balance 1502.5 / 1502.5 -395 / -195 511.25 / 511.25 Medical Nutrition Assessment Dietitian: Malnutrition Criteria Met Start: 03/14/22 20:16 Freq: Status: Active Protocol: Document 03/14/22 15:16 CECIL (Rec: 03/14/22 20:16 [facility] [id number]) Nutrition Malnutrition Evidence of Malnutrition Exists Yes Malnutrition (moderate): Acute Illness/Injury Evidenced By Suboptimal Energy Intake ( Moderate),Weight Loss ( Moderate),Physical Changes ( Mild) Clinical Problem Acute Disease or Injury Related Malnutrition Etiology related to physiological changes causing decreased oral intakes Signs/Symptoms as evidenced by significant weight loss of 9.8% in ~1.5 months, mild muscle wasting per NFPA (clavicles, temples, etc.) and poor oral intakes of less than 75% of estimated energy needs for at least 7 days. Status Active Problem Recommendation Dietitian Recommendations/Changes Continue with Regular - General diet. Order Ensure Plus High Protein 120mL 4x/d w/ medpass and Magic Cup BID w/ lunch and dinner to help increase oral intakes. Will reassess oral intakes upon f/u and modify interventions as needed. Lab / Micro Data Result Diagrams: 03/19/22 04:57 03/19/22 04:57 Labs: Laboratory Results - last 24 hr 03/16/22 05:30: IgG 381 L, IgA 104, IgM 81, Serum Immunofixation Comment 03/17/22 05:35: Total Protein (PEP) 5.1 L, Albumin (PEP) 2.1 L, Globulin (PEP) 3.0, Albumin/Globulin (PEP) 0.7, Zlyoa-5-Tynimlsas 0.6 H, Kgfyo-0-Kajgoducv 1.4 H, Beta Globulins 0.7, Gamma Globulins 0.4, M-Omid , PEP Note Comment, PEP Interpretation Comment, Free [place] LC, Quant 27.3 H, Free Lambda LC, Quant 24.5, Free [place]/Lambda Ratio 1.11 03/17/22 05:35: Free PSA 13.6, % Free PSA 0.24, PSA Ultra-Sensitive 1.760 03/18/22 04:54: Diff Path Review Reviewed 03/18/22 04:54: GGT 217 H 03/19/22 04:57: WBC 13.3 H, RBC 3.62 L, Hgb 10.8 L, Hct 33.2 L, MCV 91.7, MCH 29.8, MCHC 32.5, RDW Std Deviation 57.3 H, RDW Coeff of George 17.3 H, Plt Count 265, MPV 9.9, Neut % (Auto) Not Reportable, Absolute Neuts (auto) 10.4 H, Absolute Lymphs (auto) 1.20, Total Counted 100, Neutrophils % (Manual) 75 H, Band Neutrophils % 1, Lymphocytes % (Manual) 9 L, Monocytes % (Manual) 8, Eosinophils % (Manual) 5, Metamyelocytes % 2 H, Diff Path Review May foll, Platelet Estimate ADEQUATE, RBC Morphology NORM C+C 03/19/22 04:57: Sodium 144, Potassium 3.8, Chloride 114 H, Carbon Dioxide 20.0 L, Anion Gap 10, BUN 34 H, Creatinine 1.29, Estim Creat Clear Calc 54.20, Est GFR (MDRD) Af Amer 69, Est GFR (MDRD) Non-Af 57 L, BUN/Creatinine Ratio 26.4 H, Glucose 106, Calcium 11.8 H, Total Bilirubin 1.00, AST 41 H, ALT 18, Alkaline Phosphatase 231 H, Total Protein 6.7, Albumin 1.9 L, Globulin 4.8 H, Albumin/Globulin Ratio 0.4 L Micro: Microbiology 03/13/22 16:50 Mucosa - Nasopharyngeal Respiratory Panel (PCR) - Final 03/13/22 11:35 Nasal Secretion SARS-CoV-2 & FLU Antigen (Rapid) - Final Physical Exam Narrative Alert awake oriented x 3, no obvious distress no JVD s1s2 no murmurs lungs clear abdomen soft, nontender no edema Assessment & Plan Assessment/Plan (1) Acute kidney injury: PLAN: - Baseline creatinine unknown, patient had lab work on 01/30/2022 and creatinine was 1.7. No lab work to review before January labs. Presented with a creatinine of 3.65 on 03/13 and has improved to 1.2 and mg/dL today. BUN was disproportionately high, peaked at 115 and is currently 34. Not on steroids prior to admission and hgb was 11.7. Renal ultrasound is not impressive. Urine analysis does show some cells including RBCs. No kidney stones noted on ultrasound. Clinically looked significantly dry with dry oral mucosa. Possible this is all volume depletion/hypercalcemia. - Hypercalcemia. CT abdomen/chest/pelvis: Nodular density in left upper lobe as well as right lung base with patchy infiltrates, bony metastasis, destruction. Oncology consulted. To have bone scan. Calcium level January 30 was 10.3. Off vitamin D supplements. Serum calcium was as high as 12 and is currently 11.8 today. Received zoledronic acid 4 mg IV x1. Currently on gentle IV fluids -We will arrange for hospital follow-up - Discussed with Dr. Ribera.
--- NOTE | 2022-03-19 10:50 | PCM.PN.HOSP ---
Subjective Subjective Follow-up on hypoxia/pneumonia/acute on chronic back pain: Patient was seen and examined.?No acute events overnight. Patient appears more weak. He stated that he wanted to go home. Objective Data Objective Data Vital Signs: Vital Signs Temp Pulse Resp BP Pulse Ox O2 Del Method O2 Flow Rate 97.6 F L 94 18 119/83 H 94 Nasal Cannula 2 03/19/22 08:50 03/19/22 08:50 03/19/22 08:50 03/19/22 08:50 03/19/22 08:50 03/19/22 08:50 03/19/22 08:50 Oxygen Flow Rate (L/min) 2 Oxygen Delivery Method Nasal Cannula Weight: 89.7 kg Body Mass Index (BMI) 23.8 Intake & Output: Intake and Output for Last 24 Hours 03/17/22 03/18/22 03/19/22 23:59 23:59 23:59 Intake Total 2602.5 / 2602.5 830 / 1030 761.25 / 761.25 Output Total 1100 / 1100 1225 / 1225 250 / 250 Balance 1502.5 / 1502.5 -395 / -195 511.25 / 511.25 Medical Nutrition Assessment Dietitian: Malnutrition Criteria Met Start: 03/14/22 20:16 Freq: Status: Active Protocol: Document 03/14/22 15:16 CECIL (Rec: 03/14/22 20:16 [facility] [id number]) Nutrition Malnutrition Evidence of Malnutrition Exists Yes Malnutrition (moderate): Acute Illness/Injury Evidenced By Suboptimal Energy Intake ( Moderate),Weight Loss ( Moderate),Physical Changes ( Mild) Clinical Problem Acute Disease or Injury Related Malnutrition Etiology related to physiological changes causing decreased oral intakes Signs/Symptoms as evidenced by significant weight loss of 9.8% in ~1.5 months, mild muscle wasting per NFPA (clavicles, temples, etc.) and poor oral intakes of less than 75% of estimated energy needs for at least 7 days. Status Active Problem Recommendation Dietitian Recommendations/Changes Continue with Regular - General diet. Order Ensure Plus High Protein 120mL 4x/d w/ medpass and Magic Cup BID w/ lunch and dinner to help increase oral intakes. Will reassess oral intakes upon f/u and modify interventions as needed. Lab / Micro Data Result Diagrams: 03/19/22 04:57 03/19/22 04:57 Labs: Laboratory Results - last 24 hr 03/16/22 05:30: IgG 381 L, IgA 104, IgM 81, Serum Immunofixation Comment 03/17/22 05:35: Total Protein (PEP) 5.1 L, Albumin (PEP) 2.1 L, Globulin (PEP) 3.0, Albumin/Globulin (PEP) 0.7, Glsrj-6-Kpihrjtlq 0.6 H, Mgrdb-3-Trnxhduuv 1.4 H, Beta Globulins 0.7, Gamma Globulins 0.4, M-Omid , PEP Note Comment, PEP Interpretation Comment, Free [place] LC, Quant 27.3 H, Free Lambda LC, Quant 24.5, Free [place]/Lambda Ratio 1.11 03/17/22 05:35: Free PSA 13.6, % Free PSA 0.24, PSA Ultra-Sensitive 1.760 03/18/22 04:54: Diff Path Review Reviewed 03/18/22 04:54: GGT 217 H 03/19/22 04:57: WBC 13.3 H, RBC 3.62 L, Hgb 10.8 L, Hct 33.2 L, MCV 91.7, MCH 29.8, MCHC 32.5, RDW Std Deviation 57.3 H, RDW Coeff of George 17.3 H, Plt Count 265, MPV 9.9, Neut % (Auto) Not Reportable, Absolute Neuts (auto) 10.4 H, Absolute Lymphs (auto) 1.20, Total Counted 100, Neutrophils % (Manual) 75 H, Band Neutrophils % 1, Lymphocytes % (Manual) 9 L, Monocytes % (Manual) 8, Eosinophils % (Manual) 5, Metamyelocytes % 2 H, Diff Path Review May foll, Platelet Estimate ADEQUATE, RBC Morphology NORM C+C 03/19/22 04:57: Sodium 144, Potassium 3.8, Chloride 114 H, Carbon Dioxide 20.0 L, Anion Gap 10, BUN 34 H, Creatinine 1.29, Estim Creat Clear Calc 54.20, Est GFR (MDRD) Af Amer 69, Est GFR (MDRD) Non-Af 57 L, BUN/Creatinine Ratio 26.4 H, Glucose 106, Calcium 11.8 H, Total Bilirubin 1.00, AST 41 H, ALT 18, Alkaline Phosphatase 231 H, Total Protein 6.7, Albumin 1.9 L, Globulin 4.8 H, Albumin/Globulin Ratio 0.4 L Micro: Microbiology 03/13/22 16:50 Mucosa - Nasopharyngeal Respiratory Panel (PCR) - Final 03/13/22 11:35 Nasal Secretion SARS-CoV-2 & FLU Antigen (Rapid) - Final Physical Exam Narrative Physical exam: General: Alert, Oriented x3, Cooperative, on 2 L of oxygen HEENT: Atraumatic Oral: Moist Mucosa Neck: Supple Lungs: Diminished to auscultation Cardiovascular: HS I+II, regular, no murmurs Abdomen: Bowel Sounds Present, Soft, tenderness over the lower back Extremities: No edema Skin: No rashes, No breakdown Neurological: Grossly intact Psych/Mental Status: Appropriate Assessment & Plan Assessment/Plan (1) Acute kidney injury: (2) Adult failure to thrive: (3) Back pain: (4) Weakness: PLAN: Plan 1. Severe metastatic spine disease, unclear etiology for now CT chest/abdomen/pelvis as well as chest x-ray showed left nodular density in the left upper lobe PSA is normal, IPep, SPep, free kappa light chains are unremarkable for multiple myeloma 2. Abnormal imaging?nodular spiculated left upper lobe, probably malignant We will consult pulmonology for consideration for bronchoscopy/EBUS with biopsy 3. Probable pneumonia with infiltrates seen in the bilateral lower lobes as well as right upper lobe, on CT of the chest, Continue on IV ceftriaxone and azithromycin, continue to encourage use of incentive spirometer 4. Acute kidney injury, likely prerenal from dehydration, improved, almost back to baseline Admitting creatinine was 3.65, creatinine today is 1. 2 9 Renal ultrasound is unremarkable Nephrology consulted and following Trend lab 5. Hypernatremia, secondary to dehydration, sodium is 144, Encourage use of free water Trend labs in a.m. 6. Hypercalcemia, persistent, likely related to #1, status post zoledronic acid on 02/17/2020 Calcium is still high, anticipate that medication to take full effect in 48-72 hours Trend labs in a.m. 7. Intractable nausea, vomiting and diarrhea likely secondary to gastroenteritis, resolved Rapid COVID-19 antigen test, respiratory panel as well as influenza A/B have been negative 8. Anemia, iron deficiency anemia, hemoglobin is 10.8 No retroperitoneal bleed seen on CT abdomen pelvis Status post 2 units of pRBC, IV Venofer x 1 on 03/18/22 Stool for occult blood is pending 9. Acute on chronic back pain, persistent, secondary to extensive spinal bony lesions Continue on MS Contin, oxycodone as needed, Lidoderm patches 10. Malnutrition, moderate, occupational medicine officer consulted, continue on supplements 11. History of AAA/CAD/hypertension/dyslipidemia, aspirin, statin, metoprolol 12. Hypothyroidism, continue on synthroid 13. DVT PPx- Heparin SC Charges/Coding Visit Charges Inpatient E&M: 27064 Subs Hosp L3
--- NOTE | 2022-03-19 12:01 | CASEMGMT ---
Social Work SW collaborated with physician regarding pt's discharge plan. Test results are pending and physician will need to confer with consulting physicians for determination of discharge plan. Phone call placed to Shayla in TCU. Pt has been previously approved for TCU, but then admission was cancelled due to medical complexity. SW requested pt remain on the TCU waiting list as this is one of the possible discharge options. Precert not to be started at this time, but SW requested pt be considered for admission once medical issues addressed and discharge plan formed. Shayla agreeable to keep pt on waiting list pending medical outcomes. Pt Ashley approached SW and requested to talk. SW met with Ashley and pt in pt room. SW spoke with pt who was willing to speak with SW. Pt states the doctor has told him he is very healthy and there are no health concerns. Pt sitting with pt and states doctors have told pt the severity of his illness but pt chooses to tell people what he wants them to know. Pt falls back asleep quickly. Conversation with pt regarding discharge plans. Pt's states she is not able to care for pt at home. sites her medical issues and inability to provide functional care for pt. denies having anyone to help her with care for pt at the home. SW discussed ECF coverage with pt including skilled care through insurance and short length of stay. SW explained that pt cannot receive Chemo while in a SNF. SW also spoke with regarding longterm fdc stay and private pay. Pt states they are not able to pay for ECF. SW explained Medicaid and provided a medicaid application. Home health services including coverage and services provided also explained to pt . SW will continue to follow for discharge planning and emotional support. LUCITA Barron
[2022-03-19] MEDS: Ensure Plus High Protein 120 ML LIQUID PO ×2 (13:26→17:13)
[2022-03-19] MEDS: Bisacodyl 10 MG Suppository RC (14:57)
[2022-03-19] MEDS: Polyethylene Glycol 3350 17 GM PACKET PO ×2 (15:00→20:30)
[2022-03-19] MEDS: Atorvastatin Calcium 80 MG Tablet PO (20:23)
[2022-03-20] VITALS (11 sets, daily range): BP systolic 104–146; BP diastolic 58–89; PULSE 90–107; RESP 17–24; TEMP 36.9–37.4; O2SAT 93–94
[2022-03-20] MEDS: oxyCODONE 5 MG Tablet 10 MG PO (00:46)
[2022-03-20 05:23] LABS: Hematocrit 26.1 % (40-54); Hemoglobin 8.4 g/dL (13.0-16.5); Mean Corp Hgb Conc 32.2 g/dL (32-36); Mean Corpuscular Hgb 29.8 pg (27.0-32.0); Mean Corpuscular Volume 92.6 fL (80-94); POSITIVE COUNT YES; POSITIVE MORPHOLOGY YES; Platelet Count 195 K/mm3 (150-450); RBC Distribution Width CV 17.1 % (11.6-14.6); RBC Distribution Width SD 57.2 fl (35.1-43.9); Red Blood Count 2.82 M/mm3 (4.6-6.2); White Blood Count 11.2 K/mm3 (4.4-11.0)
[2022-03-20 05:26] LABS: Differential Indicated MANUAL DIFF
[2022-03-20 05:56] LABS: ALB/GLOB Ratio 0.4 RATIO (0.9-2.4); AST(SGOT) 59 U/L (15-37); Alanine Aminotransfer ALT/SGPT 25 U/L (16-61); Albumin, Serum 1.5 g/dL (3.2-5.0); Alkaline Phosphatase 263 U/L (45-117); Anion Gap 9 (5-15); BUN 33 mg/dL (7-18); BUN/Creat Ratio 20.6 RATIO (10-20); Calcium,Total 9.7 mg/dL (8.5-10.1); Chloride 113 mmol/L (98-107); EST Glomerular Filtration Rate 45 mL/min (>60); Eosinophil 2 % (0-5); Est Glom Filt Rate - Afr Amer 54 mL/min (>60); Glucose 182 mg/dL (74-106); Lymphocyte 7 % (19-41); Monocyte 9 % (0-10); Neutrophil-Segmented 81 % (47-70); Potassium 3.7 mmol/L (3.5-5.1); Promyelocyte 1 % (0-0); Protein, Total 5.5 g/dL (6.4-8.2); Sodium Level 142 mmol/L (136-145); Total Cells Counted 100 (MANUAL DIFF)
[2022-03-20 05:58] LABS: Absolute Lymphocyte Count 0.78 X10^3/uL (0.83-4.51); Absolute Neutrophil Count 9.2 X10^3/uL (2.0-7.7); Lymphocyte # 0.78 X10^3/ul (0.83-4.51); Neutrophil # 9.16 X10^3/uL (2.7-7.7); Platelet Estimate ADEQUATE (ADEQ)
[2022-03-20 05:59] LABS: Red Cell Morphology NORM C+C NORMAL (NORM C&C)
[2022-03-20 09:51] LABS: Pathologist Review Reviewed
--- NOTE | 2022-03-20 10:08 | CASEMGMT ---
Addendum entered by Rosalva George 03/20/22 16:16: Social Work SW and physician held conference call with pt Henrietta to discuss discharge plan. Physician explained medical issues and recommendations for hospice. Pt understanding. SW explained option of Home with hospice, ECF with hospice and Inpatient Hospice Unit. Pt choosing [facility]. Emotional support provided to pt . SW, physician and bedside nurse then met with pt. Discussed with pt prognosis and options and discussed goals of care with pt. Pt was able to understand and verbalize his thoughts regarding goals of care are for comfort and pt agreeable to referral to [facility]. Phone call to pt and discussed conversation with pt and agreeable with referral to [facility]. Clinical information fax[facility] to [facility] and phone call made with referral. Marta, intake nurse stating she will notify staff of referral for [facility] assessment but is not certain of availbility due to weather. DELVIN informed Marta pt would benefit from assessment as soon as possible. Plan: Assessment for Hospice Inpatient Unit. LUCITA Barron Original Note: Social work SW spoke with pt and she will not be visiting pt today. Mrs. Gallo is agreeable to conference call with SW and physician to discuss discharge plan and will be available all day by phone. Physician updated and meeting will take place today. LUCITA Barron
[2022-03-20] MEDS: Aspirin E.C. 81 MG Tablet PO (10:14)
[2022-03-20] MEDS: Heparin Injection (Vial) 5,000 UNIT/ML VIAL 5000 UNIT SC ×2 (10:14→22:24)
[2022-03-20] MEDS: Lidocaine 5% Patch 2 PATCH TOPICAL (10:14)
[2022-03-20] MEDS: Polyethylene Glycol 3350 17 GM PACKET PO (10:15)
[2022-03-20] MEDS: morphine SR 15 MG Tablet PO ×2 (10:15→22:24)
[2022-03-20] MEDS: Ensure Plus High Protein 120 ML LIQUID PO (11:26)
[2022-03-20] MEDS: Metoprolol(XL)Succ 25 MG Tablet PO ×2 (11:26→22:25)
--- NOTE | 2022-03-20 12:50 | CON.PCM.CC_ITS ---
Assessment & Plan Assessment/Plan (1) Lung nodule: (2) Adult failure to thrive: PLAN: Plan RECOMMENDATIONS: 1. Consider biopsy of metastatic spine disease 2. Repeat CT scan in 3 to 4 weeks 3. Wean oxygen as tolerated 4. Aggressive pain control 5. Consider repeat CODE STATUS discussion with family IMPRESSIONS: 1. Abnormal CT scan with lung nodules and mediastinal lymphadenopathy High clinical suspicion for a malignancy. Patient does have some findings on CT scan of the chest including none lung nodules and mediastinal lymphadenopathy that may be approachable by bronchoscopy. Unfortunately, in the setting of acute pneumonia, biopsy locations will be difficult to assess. This would increase the risk of a false negative procedure. An EBUS at this time would be difficult as patient has multiple enlarged lymph nodes. It is unclear if this hypertrophy is related to malignancy. The same complications would be noted for doing CT-guided biopsies of lung nodules and acute infectious phase. A repeat scan in 3 to 4 weeks could help with assessment. Multiple spinal processes are involved, so stage IV cancer would be suspected. Lung cancer would be a consideration, bioprosthetic metastasis to the spine would be more likely. Patient does have prostatic calcification. 2. Acute kidney injury/anemia Patient presented with a creatinine of 3.65, but is significantly improved today. Nephrology has been following and patient appears to be doing well. Patient also has had resolution of intractable nausea, vomiting and diarrhea. Patient does have an element of anemia requiring transfusion. Unclear if patient has had a recent colonoscopy, but no colonic masses are notable on CT of the abdomen 3. Advanced age/malnutrition/hypertension/dyslipidemia/hyp othyroidism/debility Complicates care, management, recovery and prognosis. Dietitian is following. Patient is on baseline medications. HPI Consult Data Date of Consult: 03/20/22 HPI Narrative Reason for Consultation: Possible bronchoscopy HPI Narrative: CAT GARCIA is a 77 M, with past medical history listed below, who presented to [facility] on 03/13/2022 secondary to back pain and failure to thrive. Patient reportedly has had back pain for over 6 months but felt that it was getting worse. Patient apparently has baseline tremor and had to be sedated for an MRI to evaluate. Patient stated that he had progressively gotten weaker and his did not feel that she could care for him. Patient also reportedly had some confusion and some short-term memory problems. Patient had also complained of diarrhea 3 days prior to presentation along with loss of balance. Patient denied any loss of bowel or bladder issues. In the ER, patient was tachycardic at 116 bpm and tachypneic at 27 breaths/min. Patient was normotensive, but saturating well on room air. Laboratory work-up at that time showed a white blood cell count of 14.2 with a hemoglobin of 11.7. Patient was noted to have a BUN of 115 with a creatinine of 3.65 and a bicarbonate of 14. Glucose was normal, along with troponin. Chest x-ray showed hyperinflation with a stable nodular density in the left midlung and right base. CT of the head showed no metastasis. Patient was admitted at that time with a diagnosis of acute kidney injury with intractable nausea, vomiting and diarrhea. Patient was initiated on hydration and admitted to the regular floor. Patient has had a complicated hospital stay, but MRI was suggestive of multiple metastatic spinal lesions. Patient had a work-up for multiple myeloma and when this came back negative, pulmonary was consulted for concerns of a possible bronchoscopy. Oncology has been seeing the patient since March 18. Over the hospital course, patient has been initiated on ceftriaxone and azithromycin secondary to a reported pneumonia. Renal function has significantly improved, but patient continues to have hyperglycemia. Patient was relatively fixated on his back pain during my evaluation. Patient states he is never been seen by a thread winder or had a pulmonary function test. Patient does have a 71-11-dosy-year smoking history, but quit in 2007. Patient reportedly does not use any inhalers at baseline, but is on narcotics secondary to his back pain. No family members were present during my evaluation. Patient was requiring 3-1/2 L to maintain saturations. Review of systems otherwise negative from a constitutional, HEENT, respiratory, cardiovascular, GI, genitourinary, musculoskeletal, skin, neurologic, psychiatric and hematologic system unless stated above. [facility] Medical History AAA (abdominal aortic aneurysm) Acute back pain with sciatica Arthritis HTN (hypertension) Hypercholesteremia Hypothyroidism Kidney disease Home Medications atorvastatin 80 mg tablet 80 mg PO QHS 10/22/21 [History Last Taken 03/12/22] levothyroxine 112 mcg tablet 1 tab PO DAILY 10/22/21 [History Last Taken 03/11/22] lisinopril 5 mg tablet 1 tab PO DAILY 10/22/21 [History Last Taken 03/12/22] metoprolol succinate 25 mg tablet,extended release 24 hr 25 mg PO BID 10/22/21 [History Last Taken 03/12/22] oxycodone 10 mg tablet 10 mg PO TID PRN pain 5 days #15 tabs 10/22/21 [Rx Last Taken 03/10/22] acetaminophen 500 mg tablet 1,000 mg PO Q6H PRN Pain 03/13/22 [History Last Taken 03/12/22] aspirin 81 mg tablet,delayed release 81 mg PO DAILY 03/13/22 [History Last Taken 2 Days Ago ~03/11/22] cholecalciferol (vitamin D3) 25 mcg (1,000 unit) capsule 25 mcg PO DAILY SUPPLEMENT 03/13/22 [History Last Taken 03/11/22] diphenhydramine HCl 50 mg capsule 100 mg PO QHS PRN Insomnia 03/13/22 [History Last Taken Unknown] omeprazole 20 mg capsule,delayed release 20 mg PO DAILY GERD 03/13/22 [History Last Taken 03/13/22] tizanidine 4 mg tablet 4 - 8 mg PO TID PRN Pain 03/13/22 [History Last Taken 03/12/22] Allergy/AdvReac Type Severity Reaction Status Date / Time No Known Allergies Allergy Verified 03/13/22 10:36 Family History Father Heart disease Mother No problems noted. Surgical History S/P triple vessel bypass Social History Smoking Status: Former smoker ROS ROS Narrative See HPI Physical Exam Const alert and oriented x3 General Appearance: in distress Positive for moderate (Grimace with back pain) and frail HEENT normocephalic and head/scalp atraumatic HEENT Narrative: Some temporal wasting appreciated Eyes PERRL and EOMs intact bilaterally Chest Chest: abnormal inspection of the chest increased A-P diameter Resp Resp Narrative: Fair effort on exam. Auscultation: diminished lung sounds; Negative for rales, rhonchi or wheezes Cardio regular rate, regular rhythm, S1 normal heart sound, S2 normal heart sound, no murmurs, no rub and no gallops GI normal to inspection, nondistended, normoactive bowel sounds Extremity normal to inspection and no clubbing, cyanosis or edema Skin no rashes or lesions noted Neuro CN's II-XII intact bilaterally, moves all extremities and no focal motor deficits Neuro Narrative: Does limit some movement secondary to reported back pain Psych Activity / Motor Behavior: restless Mood & Affect: flat affect Medical Records Data Attestation: I reviewed the patient's medical records Medical records narrative: No previous CT of the chest has been done at [facility]. Patient did have a chest x-ray in January showing hyperinflation with a 1.4 x 1.5 nodular density in the left midlung Medical Nutrition Assessment Dietitian: Malnutrition Criteria Met Start: 03/14/22 20:16 Freq: Status: Active Protocol: Document 03/14/22 15:16 ECCIL (Rec: 03/14/22 20:16 [facility] [id number]) Nutrition Malnutrition Evidence of Malnutrition Exists Yes Malnutrition (moderate): Acute Illness/Injury Evidenced By Suboptimal Energy Intake ( Moderate),Weight Loss ( Moderate),Physical Changes ( Mild) Clinical Problem Acute Disease or Injury Related Malnutrition Etiology related to physiological changes causing decreased oral intakes Signs/Symptoms as evidenced by significant weight loss of 9.8% in ~1.5 months, mild muscle wasting per NFPA (clavicles, temples, etc.) and poor oral intakes of less than 75% of estimated energy needs for at least 7 days. Status Active Problem Recommendation Dietitian Recommendations/Changes Continue with Regular - General diet. Order Ensure Plus High Protein 120mL 4x/d w/ medpass and Magic Cup BID w/ lunch and dinner to help increase oral intakes. Will reassess oral intakes upon f/u and modify interventions as needed. Lab / Micro Data Attestation: I reviewed the patient's lab results. Result Diagrams: 03/20/22 05:10 03/20/22 05:10 Labs: Laboratory Results - last 24 hr 03/18/22 04:54: Hepatitis A IgM Ab Negative, Hep Bs Antigen Negative, Hep B Core IgM Ab Negative, Hepatitis C Ab (EIA) <0.1, Hep C Ab Comment Comment 03/19/22 04:57: Diff Path Review Reviewed 03/20/22 05:10: WBC 11.2 H, RBC 2.82 L, Hgb 8.4 L, Hct 26.1 L, MCV 92.6, MCH 29.8, MCHC 32.2, RDW Std Deviation 57.2 H, RDW Coeff of George 17.1 H, Plt Count 195, MPV 10.0, Neut % (Auto) Not Reportable, Absolute Neuts (auto) 9.2 H, Absolute Lymphs (auto) 0.78 L, Total Counted 100, Neutrophils % (Manual) 81 H, Lymphocytes % (Manual) 7 L, Monocytes % (Manual) 9, Eosinophils % (Manual) 2, Promyelocytes % 1 H, Diff Path Review July, Platelet Estimate ADEQUATE, RBC Morphology NORM C+C 03/20/22 05:10: Sodium 142, Potassium 3.7, Chloride 113 H, Carbon Dioxide 20.0 L , Anion Gap 9, BUN 33 H, Creatinine 1.60 H, Estim Creat Clear Calc 43.70, Est GFR (MDRD) Af Amer 54 L, Est GFR (MDRD) Non-Af 45 L, BUN/Creatinine Ratio 20.6 H , Glucose 182 H, Calcium 9.7, Total Bilirubin 0.90, AST 59 H, ALT 25, Alkaline Phosphatase 263 H, Total Protein 5.5 L, Albumin 1.5 L, Globulin 4.0, Albumin/Globulin Ratio 0.4 L Charges/Coding Visit Charges Inpatient E&M: 68955 Init Hosp L2
[2022-03-20 14:11] LABS: Pathologist Review Reviewed
--- NOTE | 2022-03-20 15:13 | PN.HOSP_ITS ---
Subjective Subjective Follow-up on hypoxia/pneumonia/acute on chronic back pain: Patient was seen and examined.? Patient complains of severe pain in his right wrist. Discussed with oncology and pulmonology, patient will have to undergo anesthesia for the right rib biopsy or spine mets biopsy or bronchoscopy/EBUS. I have updated patient and his as well as sister. Patient agreed to DNR CC as a CODE STATUS change. He also stated that what matters most to him was pain control. Changes were made to his pain regimen. Patient is not skilled level and he was agreeable to an inpatient hospice facility as his stated that sh e cannot take care of him and he does not have resources to pay for hospice in a residential. Objective Data Objective Data Vital Signs: Vital Signs Temp Pulse Resp BP Pulse Ox O2 Del Method O2 Flow Rate 99.1 F 96 20 H 106/69 94 Nasal Cannula 4 03/20/22 14:07 03/20/22 14:07 03/20/22 14:07 03/20/22 14:07 03/20/22 14:07 03/20/22 14:07 03/20/22 14:07 Oxygen Flow Rate (L/min) 4 Oxygen Delivery Method Nasal Cannula Weight: 90.2 kg Body Mass Index (BMI) 23.8 Intake & Output: Intake and Output for Last 24 Hours 03/18/22 03/19/22 03/20/22 23:59 23:59 23:59 Intake Total 830 / 1030 1975.25 / 2095.25 2431.25 / 243.25 Output Total 1225 / 1225 520 / 770 450 / 450 Balance -395 / -195 1456.25 / 1326.25 / Medical Nutrition Assessment Dietitian: Malnutrition Criteria Met Start: 03/14/22 20:16 Freq: Status: Active Protocol: Document 03/14/22 15:16 CECIL (Rec: 03/14/22 20:16 CECIL [id number]) Nutrition Malnutrition Evidence of Malnutrition Exists Yes Malnutrition (moderate): Acute Illness/Injury Evidenced By Suboptimal Energy Intake ( Moderate),Weight Loss ( Moderate),Physical Changes ( Mild) Clinical Problem Acute Disease or Injury Related Malnutrition Etiology related to physiological changes causing decreased oral intakes Signs/Symptoms as evidenced by significant weight loss of 9.8% in ~1.5 months, mild muscle wasting per NFPA (clavicles, temples, etc.) and poor oral intakes of less than 75% of estimated energy needs for at least 7 days. Status Active Problem Recommendation Dietitian Recommendations/Changes Continue with Regular - General diet. Order Ensure Plus High Protein 120mL 4x/d w/ medpass and Magic Cup BID w/ lunch and dinner to help increase oral intakes. Will reassess oral intakes upon f/u and modify interventions as needed. Lab / Micro Data Result Diagrams: 03/20/22 05:10 03/20/22 05:10 Labs: Laboratory Results - last 24 hr 03/18/22 04:54: Hepatitis A IgM Ab Negative, Hep Bs Antigen Negative, Hep B Core IgM Ab Negative, Hepatitis C Ab (EIA) <0.1, Hep C Ab Comment Comment 03/19/22 04:57: Diff Path Review Reviewed 03/20/22 05:10: WBC 11.2 H, RBC 2.82 L, Hgb 8.4 L, Hct 26.1 L, MCV 92.6, MCH 29.8, MCHC 32.2, RDW Std Deviation 57.2 H, RDW Coeff of George 17.1 H, Plt Count 195, MPV 10.0, Neut % (Auto) Not Reportable, Absolute Neuts (auto) 9.2 H, Absolute Lymphs (auto) 0.78 L, Total Counted 100, Neutrophils % (Manual) 81 H, Lymphocytes % (Manual) 7 L, Monocytes % (Manual) 9, Eosinophils % (Manual) 2, Promyelocytes % 1 H, Diff Path Review Reviewed, Platelet Estimate ADEQUATE, RBC Morphology NORM C+C 03/20/22 05:10: Sodium 142, Potassium 3.7, Chloride 113 H, Carbon Dioxide 20.0 L , Anion Gap 9, BUN 33 H, Creatinine 1.60 H, Estim Creat Clear Calc 43.70, Est GFR (MDRD) Af Amer 54 L, Est GFR (MDRD) Non-Af 45 L, BUN/Creatinine Ratio 20.6 H , Glucose 182 H, Calcium 9.7, Total Bilirubin 0.90, AST 59 H, ALT 25, Alkaline Phosphatase 263 H, Total Protein 5.5 L, Albumin 1.5 L, Globulin 4.0, Albumin/Globulin Ratio 0.4 L Micro: Microbiology 03/13/22 16:50 Mucosa - Nasopharyngeal Respiratory Panel (PCR) - Final 03/13/22 11:35 Nasal Secretion SARS-CoV-2 & FLU Antigen (Rapid) - Final Physical Exam Narrative Physical exam: General: Alert, Oriented x3, appears more lethargic, on 2 L oxygen HEENT: Atraumatic Oral: Moist Mucosa Neck: Supple Lungs: Diminished to auscultation Cardiovascular: HS I+II, regular, no murmurs Abdomen: Bowel Sounds Present, Soft, tenderness over the lower back Extremities: No edema Skin: No rashes, No breakdown Neurological: Grossly intact Psych/Mental Status: Appropriate Assessment & Plan Assessment/Plan (1) Acute kidney injury: (2) Adult failure to thrive: (3) Back pain: (4) Weakness: PLAN: Plan 1. 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 Abnormal imaging?nodular spiculated left upper lobe, probably malignant Pulmonology consulted for consideration for bronchoscopy/EBUS with biopsy; discussed PROBABLE sedation for bronchoscopy in the light of recent rapid decline. 3. Probable pneumonia with infiltrates seen in the bilateral lower lobes as well as right upper lobe, on CT of the chest, Continue on IV ceftriaxone and azithromycin, continue to encourage use of i ncentive spirometer 4. Acute kidney injury, likely prerenal from dehydration, improved, almost back to baseline Admitting creatinine was 3.65, creatinine today is 1.60 Renal ultrasound is unremarkable Nephrology consulted and following Trend lab 5. Hypernatremia, secondary to dehydration, improved, sodium is 142, Encourage use of free water Trend labs in a.m. 6. Hypercalcemia, persistent, likely related to #1, status post zoledronic acid on 02/17/2020 Calcium is improved now 7. Intractable nausea, vomiting and diarrhea likely secondary to gastroenteritis, resolved Rapid COVID-19 antigen test, respiratory panel as well as influenza A/B have been negative 8. Anemia, iron deficiency anemia, hemoglobin is 8.4 down from 10.8 No retroperitoneal bleed seen on CT abdomen pelvis Status post 2 units of pRBC, IV Venofer x 1 on 03/18/22 Stool for occult blood is pending 9. Acute on chronic back pain, persistent, secondary to extensive spinal bony lesions Continue on MS Contin, will add IV Dilaudid as needed, continue Lidoderm patches 10. Malnutrition, moderate, quilt stuffer consulted, continue on supplements 11. History of AAA/CAD/hypertension/dyslipidemia, aspirin, statin, metoprolol 12. Hypothyroidism, continue on synthroid 13. DVT PPx- Heparin SC Charges/Coding Visit Charges Inpatient E&M: 18832 Subs Hosp L3
[2022-03-20] MEDS: HYDROmorphone 1 MG/ML Syringe IV (15:39)
[2022-03-20] MEDS: 0.9% Saline Lock 10 ML Syringe IV (15:39)
[2022-03-20] MEDS: Acetaminophen 325 MG Tablet 650 MG PO (15:40)
[2022-03-20] MEDS: Atorvastatin Calcium 80 MG Tablet PO (22:24)
[2022-03-21 02:00] VITALS: BP 112/64; PULSE 100; RESP 20; TEMP 37.3; O2SAT 93
[2022-03-21 04:09] VITALS: BP 112/64; PULSE 100; RESP 20; TEMP 37.3; O2SAT 93
[2022-03-21] MEDS: HYDROmorphone 1 MG/ML Syringe IV ×3 (04:10→11:42)
[2022-03-21] MEDS: Levothyroxine 112 MCG Tablet PO (05:26)
[2022-03-21 06:28] LABS: ALB/GLOB Ratio 0.3 RATIO (0.9-2.4); AST(SGOT) 70 U/L (15-37); Alanine Aminotransfer ALT/SGPT 23 U/L (16-61); Albumin, Serum 1.5 g/dL (3.2-5.0); Alkaline Phosphatase 279 U/L (45-117); Anion Gap 11 (5-15); BUN 29 mg/dL (7-18); BUN/Creat Ratio 18.5 RATIO (10-20); Calcium,Total 9.3 mg/dL (8.5-10.1); Chloride 110 mmol/L (98-107); Creatinine, Serum 1.57 mg/dL (0.70-1.30); EST Glomerular Filtration Rate 46 mL/min (>60); Est Glom Filt Rate - Afr Amer 55 mL/min (>60); Estimated Creatinine Clearance 44.53 ml/min; Globulin 4.3 g/dL (2.2-4.2); Glucose 186 mg/dL (74-106); Potassium 3.5 mmol/L (3.5-5.1); Protein, Total 5.8 g/dL (6.4-8.2); Sodium Level 140 mmol/L (136-145)
--- NOTE | 2022-03-21 07:50 | PN.CC_ITS ---
Assessment & Plan Assessment/Plan (1) Lung nodule: (2) Adult failure to thrive: PLAN: Plan RECOMMENDATIONS: 1. Will sign off at this time, given transition to comfort care measures. IMPRESSIONS: 1. Abnormal CT scan with lung nodules and mediastinal lymphadenopathy High clinical suspicion for a malignancy. The patient does have underlying lung nodules and mild mediastinal lymphadenopathy, along with spinal metastatic disease. Bronchoscopy is not indicated. If the patient were to change his mind regarding the desire to obtain a tissue sample for definitive diagnosis, I would first attempt to biopsy one of the spinal metastatic lesions. If this were to not provide an answer, a percutaneous CT-guided lung biopsy could be completed. 2. Advanced age/malnutrition/hypertension/dyslipidemia/hypothyroidism/debility Complicates care, management, recovery and prognosis. This note was generated with [employer] dictation software. It may contain incorrect words, spelling, and punctuation that were not noted in checking the note before signing. Subjective Subjective The patient was seen and examined at the bedside this morning. Events from the last 24 hours have been reviewed. The patient is currently afebrile, hemod ynamically stable and maintaining appropriate oxygen saturations on 4 L/min via nasal cannula. The patient is documented to be overall net +11 L for the hospitalization. He does report the presence of resting shortness of breath. The patient did confirm to me that he does not wish to proceed with any form of tissue biopsy. The patient was transitioned to DNR comfort care yesterday. Objective Data Objective Data The patient's most recent lab work, culture data and imaging studies have all been personally reviewed. Vital Signs: Vital Signs Temp Pulse Resp BP Pulse Ox O2 Del Method O2 Flow Rate 99.2 F H 100 20 H 112/64 93 Nasal Cannula 4 03/21/22 04:09 03/21/22 04:09 03/21/22 04:09 03/21/22 04:09 03/21/22 04:09 03/21/22 04:09 03/21/22 04:09 Oxygen Flow Rate (L/min) 4 Oxygen Delivery Method Nasal Cannula Weight: 196 lb 6.91 oz Body Mass Index (BMI) 23.8 Intake & Output: Intake and Output for Last 24 Hours 03/19/22 03/20/22 03/21/22 23:59 23:59 23:59 Intake Total 1976.25 / 2096.25 2700.00 / 2800.00 1198.75 / 1198.75 Output Total 520 / 770 450 / 650 300 / 300 Balance 1456.25 / 1326.25 2250.00 / 2150.00 898.75 / 898.75 Medical Nutrition Assessment Dietitian: Malnutrition Criteria Met Start: 03/14/22 20:16 Freq: Status: Active Protocol: Document 03/14/22 15:16 CECIL (Rec: 03/14/22 20:16 [email or web address] [id number]) Nutrition Malnutrition Evidence of Malnutrition Exists Yes Malnutrition (moderate): Acute Illness/Injury Evidenced By Suboptimal Energy Intake ( Moderate),Weight Loss ( Moderate),Physical Changes ( Mild) Clinical Problem Acute Disease or Injury Related Malnutrition Etiology related to physiological changes causing decreased oral intakes Signs/Symptoms as evidenced by significant weight loss of 9.8% in ~1.5 months, mild muscle wasting per NFPA (clavicles, temples, etc.) and poor oral intakes of less than 75% of estimated energy needs for at least 7 days. Status Active Problem Recommendation Dietitian Recommendations/Changes Continue with Regular - General diet. Order Ensure Plus High Protein 120mL 4x/d w/ medpass and Magic Cup BID w/ lunch and dinner to help increase oral intakes. Will reassess oral intakes upon f/u and modify interventions as needed. Lab / Micro Data Attestation: I reviewed the patient's lab results. Result Diagrams: 03/20/22 05:10 03/21/22 05:06 Labs: Laboratory Results - last 24 hr 03/19/22 04:57: Diff Path Review Reviewed 03/20/22 05:10: Diff Path Review Reviewed 03/21/22 05:06: Sodium 140, Potassium 3.5, Chloride 110 H, Carbon Dioxide 19.0 L , Anion Gap 11, BUN 29 H, Creatinine 1.57 H, Estim Creat Clear Calc 44.53, Est GFR (MDRD) Af Amer 55 L, Est GFR (MDRD) Non-Af 46 L, BUN/Creatinine Ratio 18.5, Glucose 186 H, Calcium 9.3, Total Bilirubin 1.00, AST 70 H, ALT 23, Alkaline Phosphatase 279 H, Total Protein 5.8 L, Albumin 1.5 L, Globulin 4.3 H, Albumin/Globulin Ratio 0.3 L Micro: Microbiology 03/13/22 16:50 Mucosa - Nasopharyngeal Respiratory Panel (PCR) - Final 03/13/22 11:35 Nasal Secretion SARS-CoV-2 & FLU Antigen (Rapid) - Final Physical Exam Const alert General Appearance: cooperative and ill appearing HEENT normocephalic and head/scalp atraumatic Eyes PERRL, EOMs intact bilaterally and conjunctivae normal Neck supple General: trachea midline Chest Chest Narrative: Increased AP diameter Resp Effort and Inspection: tachypneic Auscultation: diminished lung sounds Cardio regular rate and regular rhythm GI normal to inspection, nondistended, normoactive bowel sounds Extremity no clubbing, cyanosis or edema Skin no rashes or lesions noted Neuro CN's II-XII intact bilaterally and no focal motor deficits Psych Mood & Affect: flat affect Charges/Coding Visit Charges Inpatient E&M: 74118 Subs Hosp L2
[2022-03-21 08:14] VITALS: BP 117/74; PULSE 98; RESP 24; TEMP 37; O2SAT 94
[2022-03-21 08:16] VITALS: BP 117/74; PULSE 98; RESP 24; TEMP 37; O2SAT 94
[2022-03-21 08:17] VITALS: O2SAT 94
[2022-03-21] MEDS: 0.9% Saline Lock 10 ML Syringe IV ×2 (08:32→11:43)
--- NOTE | 2022-03-21 09:26 | PCM.PN.HOSP ---
Subjective Subjective Patient is a 77-year-old gentleman with multiple comorbidities admitted with progressive generalized weakness. Patient hospital stay complicated by development of severe back pain MRI of the cervical and thoracic spine showed extensive metastatic disease CT chest abdomen and pelvis demonstrated left nodular lung density involving the left upper lobe Objective Data Objective Data Vital Signs: Vital Signs Temp Pulse Resp BP Pulse Ox O2 Del Method O2 Flow Rate 98.6 F 98 24 H 117/74 94 Nasal Cannula 4 03/21/22 08:16 03/21/22 08:16 03/21/22 08:16 03/21/22 08:16 03/21/22 08:17 03/21/22 08:17 03/21/22 08:17 Oxygen Flow Rate (L/min) 4 Oxygen Delivery Method Nasal Cannula Weight: 89.1 kg Body Mass Index (BMI) 23.8 Intake & Output: Intake and Output for Last 24 Hours 03/19/22 03/20/22 03/21/22 23:59 23:59 23:59 Intake Total 1976.25 / 2096.25 2700.00 / 2800.00 1198.75 / 1198.75 Output Total 520 / 770 450 / 650 300 / 300 Balance 1456.25 / 1326.25 2250.00 / 2150.00 898.75 / 898.75 Medical Nutrition Assessment Dietitian: Malnutrition Criteria Met Start: 03/14/22 20:16 Freq: Status: Active Protocol: Document 03/14/22 15:16 FABI (Rec: 03/14/22 20:16 [facility] [id number]) Nutrition Malnutrition Evidence of Malnutrition Exists Yes Malnutrition (moderate): Acute Illness/Injury Evidenced By Suboptimal Energy Intake ( Moderate),Weight Loss ( Moderate),Physical Changes ( Mild) Clinical Problem Acute Disease or Injury Related Malnutrition Etiology related to physiological changes causing decreased oral intakes Signs/Symptoms as evidenced by significant weight loss of 9.8% in ~1.5 months, mild muscle wasting per NFPA (clavicles, temples, etc.) and poor oral intakes of less than 75% of estimated energy needs for at least 7 days. Status Active Problem Recommendation Dietitian Recommendations/Changes Continue with Regular - General diet. Order Ensure Plus High Protein 120mL 4x/d w/ medpass and Magic Cup BID w/ lunch and dinner to help increase oral intakes. Will reassess oral intakes upon f/u and modify interventions as needed. Lab / Micro Data Result Diagrams: 03/20/22 05:10 03/21/22 05:06 Labs: Laboratory Results - last 24 hr 03/19/22 04:57: Diff Path Review Reviewed 03/20/22 05:10: Diff Path Review Reviewed 03/21/22 05:06: Sodium 140, Potassium 3.5, Chloride 110 H, Carbon Dioxide 19.0 L, Anion Gap 11, BUN 29 H, Creatinine 1.57 H, Estim Creat Clear Calc 44.53, Est GFR (MDRD) Af Amer 55 L, Est GFR (MDRD) Non-Af 46 L, BUN/Creatinine Ratio 18.5, Glucose 186 H, Calcium 9.3, Total Bilirubin 1.00, AST 70 H, ALT 23, Alkaline Phosphatase 279 H, Total Protein 5.8 L, Albumin 1.5 L, Globulin 4.3 H, Albumin/Globulin Ratio 0.3 L Micro: Microbiology 03/13/22 16:50 Mucosa - Nasopharyngeal Respiratory Panel (PCR) - Final 03/13/22 11:35 Nasal Secretion SARS-CoV-2 & FLU Antigen (Rapid) - Final Physical Exam Narrative GENERAL: cooperative but frail looking HEENT: Atraumatic; normocephalic EYES; Anicteric, Normal Conjunctiva NECK; supple, normal thyroid, RESPIRATORY: Diminished to auscultation CARDIOVASCULAR:? Regular S1 S2, GI:? soft, normoactive bowel sounds, : No Renal angle tenderness; EXTREMITIES:? No edema, no clubbing, MUSCULOSKELETAL:? no muscle wasting NEURO:? Awake;? no lateralizing signs. SKIN:? No Rash PSYCH; Flat? affect Assessment & Plan Assessment/Plan (1) Acute kidney injury: (2) Adult failure to thrive: (3) Back pain: (4) Weakness: PLAN: Plan Patient is a 77-year-old gentleman with multiple comorbidities admitted with progressive generalized weakness. Patient hospital stay complicated by development of severe back pain MRI of the cervical and thoracic spine showed extensive metastatic disease CT chest abdomen and pelvis demonstrated left nodular lung density involving the left upper lobe 1. Metastatic disease involving the spine ? Primary not clear. CT of the chest however demonstrated left nodular density involving the left upper lobe. Pulmonology has been consulted for EBUS patient however declined. Plan is for patient to be discharged to inpatient hospice 2.? Acute kidney injury ? Secondary to dehydration from patient nausea and vomiting.? Admitted to regular nursing floor currently being managed with IV fluids, ordered serial BMPs and renal ultrasound for subsequent eval. -03/21/2022 patient initially did improve however kidney function is subsequently worsening with nephrology following 3. Hypercalcemia ? Related to patient metastatic disease managed with biphosphonate 4. Intractable nausea vomiting ? Manage symptomatically 5.? Coronary artery disease ? With previous CABG currently stable 6.? Hypertension ? We will continue patient home medication except for lisinopril in view of impaired kidney function 7.? Dyslipidemia -Patient is on statin therapy, continued at home dose 8.? Hypothyroidism - Patient is on levothyroxine home dose continued 9. Anemia - Secondary to chronic disorder monitoring H&H and transfuse if patient becomes symptomatic or hemoglobin falls below 7 10.? Known AAA ? Stable 11. Physical deconditioning - Requested for PT OT eval and social science manager to assist with discharge planning 12.? DVT prophylaxis ? SC heparin Charges/Coding Visit Charges Inpatient E&M: 94561 Subs Hosp L2
[2022-03-21] MEDS: Lidocaine 5% Patch 2 PATCH TOPICAL (09:40)
[2022-03-21] MEDS: morphine SR 15 MG Tablet PO (09:49)
--- NOTE | 2022-03-21 11:45 | DS.PCM_ITS ---
Providers Date of Admission: 03/13/22 Date of Discharge: 03/21/22 Primary Care Physician: Dr. Omer Moss MD Consultations 03/14/22 08:10 Consult: Nephrology Routine Consulting Provider: Francisco Taylor Reason for Consult: DIMITRIS EMERGENT Consult: No Notified: Yes Date Notified: 03/14/22 Time Notified: 08:10 Method of Notification: Answering Service 03/17/22 07:28 Consult: Oncology/Hematology Routine Consulting Provider: [facility]) Reason for Consult: Metastatic spine lesions, unknown primary EMERGENT Consult: Yes MD Notified: Yes Date Notified: 03/17/22 Time Notified: 07:28 Method of Notification: Verbal Method of Consult:: In-Person 03/19/22 15:58 Consult: Game Room Attendant / Pulmonary Medicine Routine Consulting Provider: Dwayne Cornelius Reason for Consult: Lung nodule EMERGENT Consult: No MD Notified: Yes Date Notified: 03/19/22 Time Notified: 15:58 Method of Notification: Text Reason For Visit: DIMITRIS, FTT Diagnosis Discharge Diagnosis (1) Acute kidney injury: Status: Acute Code(s): N17.9 - Acute kidney failure, unspecified (2) Adult failure to thrive: Status: Acute Code(s): R62.7 - Adult failure to thrive (3) Back pain: Status: Acute Code(s): M54.9 - Dorsalgia, unspecified (4) Weakness: Status: Acute Code(s): R53.1 - Weakness Plan Patient is a 77-year-old gentleman with multiple comorbidities admitted with progressive generalized weakness. Patient hospital stay complicated by development of severe back pain MRI of the cervical and thoracic spine showed extensive metastatic disease CT chest abdomen and pelvis demonstrated left nodular lung density involving the left upper lobe 1. Metastatic disease involving the spine ? Primary not clear. CT of the chest however demonstrated left nodular density involving the left upper lobe. Pulmonology has been consulted for EBUS patient however declined. Plan is for patient to be discharged to inpatient hospice 2.? Acute kidney injury ? Secondary to dehydration from patient nausea and vomiting.? Admitted to regular nursing floor currently being managed with IV fluids, ordered serial BMP s and renal ultrasound for subsequent eval. -03/21/2022 patient initially did improve however kidney function is subsequently worsening with nephrology following 3. Hypercalcemia ? Related to patient metastatic disease managed with biphosphonate 4. Intractable nausea vomiting ? Manage symptomatically 5.? Coronary artery disease ? With previous CABG currently stable 6.? Hypertension ? We will continue patient home medication except for lisinopril in view of impaired kidney function 7.? Dyslipidemia -Patient is on statin therapy, continued at home dose 8.? Hypothyroidism - Patient is on levothyroxine home dose continued 9. Anemia - Secondary to chronic disorder monitoring H&H and transfuse if patient becomes symptomatic or hemoglobin falls below 7 10.? Known AAA ? Stable 11. Physical deconditioning - Requested for PT OT eval and certified social workers in health care to assist with discharge planning 12.? DVT prophylaxis ? SC heparin Medications at Discharge Home Medications atorvastatin 80 mg tablet 80 mg PO QHS 10/22/21 levothyroxine 112 mcg tablet 1 tab PO DAILY 10/22/21 lisinopril 5 mg tablet 1 tab PO DAILY 10/22/21 metoprolol succinate 25 mg tablet,extended release 24 hr 25 mg PO BID 10/22/21 oxycodone 10 mg tablet 10 mg PO TID PRN pain 5 days #15 tabs 10/22/21 acetaminophen 500 mg tablet 1,000 mg PO Q6H PRN Pain 03/13/22 aspirin 81 mg tablet,delayed release 81 mg PO DAILY 03/13/22 cholecalciferol (vitamin D3) 25 mcg (1,000 unit) capsule 25 mcg PO DAILY SUPPLEMENT 03/13/22 diphenhydramine HCl 50 mg capsule 100 mg PO QHS PRN Insomnia 03/13/22 omeprazole 20 mg capsule,delayed release 20 mg PO DAILY GERD 03/13/22 tizanidine 4 mg tablet 4 - 8 mg PO TID PRN Pain 03/13/22 Hospital Course Summary of Care Provided Minutes Spent on Discharge: 35 Physical Exam Narrative GENERAL: cooperative but frail looking HEENT: Atraumatic; normocephalic EYES; Anicteric, Normal Conjunctiva NECK; supple, normal thyroid, RESPIRATORY: Diminished to auscultation CARDIOVASCULAR:? Regular S1 S2, GI:? soft, normoactive bowel sounds, : No Renal angle tenderness; EXTREMITIES:? No edema, no clubbing, MUSCULOSKELETAL:? no muscle wasting NEURO:? Awake;? no lateralizing signs. SKIN:? No Rash PSYCH; Flat? affect Medical Records Data Medical Nutrition Assessment Dietitian: Malnutrition Criteria Met Start: 03/14/22 20:16 Freq: Status: Active Protocol: Document 03/14/22 15:16 FABIBell (Rec: 03/14/22 20:16 CECIL [id number]) Nutrition Malnutrition Evidence of Malnutrition Exists Yes Malnutrition (moderate): Acute Illness/Injury Evidenced By Suboptimal Energy Intake ( Moderate),Weight Loss ( Moderate),Physical Changes ( Mild) Clinical Problem Acute Disease or Injury Related Malnutrition Etiology related to physiological changes causing decreased oral intakes Signs/Symptoms as evidenced by significant weight loss of 9.8% in ~1.5 months, mild muscle wasting per NFPA (clavicles, temples, etc.) and poor oral intakes of less than 75% of estimated energy needs for at least 7 days. Status Active Problem Recommendation Dietitian Recommendations/Changes Continue with Regular - General diet. Order Ensure Plus High Protein 120mL 4x/d w/ medpass and Magic Cup BID w/ lunch and dinner to help increase oral intakes. Will reassess oral intakes upon f/u and modify interventions as needed. Weight / BMI Weight Weight: 89.1 kg Body Mass Index (BMI) 23.8 ABG / Lab / Microbiology Data Result Diagrams: 03/20/22 05:10 03/21/22 05:06 Laboratory: Laboratory Results - last 24 hr 03/20/22 05:10: Diff Path Review Reviewed 03/21/22 05:06: Sodium 140, Potassium 3.5, Chloride 110 H, Carbon Dioxide 19.0 L , Anion Gap 11, BUN 29 H, Creatinine 1.57 H, Estim Creat Clear Calc 44.53, Est GFR (MDRD) Af Amer 55 L, Est GFR (MDRD) Non-Af 46 L, BUN/Creatinine Ratio 18.5, Glucose 186 H, Calcium 9.3, Total Bilirubin 1.00, AST 70 H, ALT 23, Alkaline Phosphatase 279 H, Total Protein 5.8 L, Albumin 1.5 L, Globulin 4.3 H, Albumin/Globulin Ratio 0.3 L Microbiology: Microbiology 03/13/22 16:50 Mucosa - Nasopharyngeal Respiratory Panel (PCR) - Final 03/13/22 11:35 Nasal Secretion SARS-CoV-2 & FLU Antigen (Rapid) - Final D/C Instructions Discharge Diet: No restrictions Discharge Activity: Return to Normal Activity Call your doctor if you observe: Fever of 101 or Higher, Shortness of breath, Fainting spells and Chest pain Meaningful Use Info Meaningful Use Diagnoses (Choose all that apply): None applicable Discharge Plan Admission Admit Date/Time: 03/13/22 12:57 Attending Provider: Vega Spears Primary Care Provider: Omer Moss Consulting Providers: Francisco Taylor ; Vega Spears ; Vega Hayden ; Deonte Hines ; Adamaris Caputo ; Mark Coffey ; Yonis Cardona ; Bobo Jensen ; Zac Yeboah ; Clarissa Valadez NP ; Dwayne Cornelius ; Maira Ribera Discharge Orders/Prescriptions Prescriptions: No Action atorvastatin 80 mg tablet 80 mg PO QHS lisinopril 5 mg tablet 1 tab PO DAILY metoprolol succinate 25 mg tablet extended release 24 hr 25 mg PO BID levothyroxine 112 mcg tablet 1 tab PO DAILY oxycodone 10 mg tablet 10 mg PO TID PRN (Reason: pain) 5 Days Qty: 15 0RF diphenhydramine HCl 50 mg Capsule 100 mg PO QHS PRN (Reason: Insomnia) tizanidine 4 mg tablet 4 - 8 mg PO TID PRN (Reason: Pain) Label Comments: take 1 to 2 tablets by mouth three times a day if needed (TO LAST 30 DAYS) aspirin [Aspir-81] 81 mg Tablet,Delayed Release (Dr/Ec) 81 mg PO DAILY acetaminophen 500 mg Tablet 1,000 mg PO Q6H PRN (Reason: Pain) omeprazole 20 mg Capsule,Delayed Release(Dr/Ec) 20 mg PO DAILY cholecalciferol (vitamin D3) 25 mcg (1,000 unit) Capsule 25 mcg PO DAILY Referrals / Follow Up: Omer Moss MD [Primary Care Provider] - Disposition Disposition (needs filled in before D/C Order can be placed): Hospice in Medical Facility Charges/Coding Visit Charges Inpatient E&M: 19561 Disch Hosp
== END 2022-03-21 12:30 | disposition hospice, inpatient (51) | DRG 683 ==
LOC: ED 12:59 → MS3 14:23
PROVIDERS: Internal Medicine; Internal Medicine Medical Oncology; Nurse Practitioner Adult Health; Admitting Provider Internal Medicine; Emergency Provider Emergency Medicine; PCP Family Medicine; Visit Provider Internal Medicine
DX: N17.9 Acute kidney failure, unspecified (principal); E44.0 Moderate protein-calorie malnutrition; C79.51 Secondary malignant neoplasm of bone; E87.0 Hyperosmolality and hypernatremia; N18.32 Chronic kidney disease, stage 3b; M54.9 Dorsalgia, unspecified; E03.9 Hypothyroidism, unspecified; I25.10 Atherosclerotic heart disease of native coronary artery without angina pectoris; E78.00 Pure hypercholesterolemia, unspecified; E83.52 Hypercalcemia; D50.9 Iron deficiency anemia, unspecified; I12.9 Hypertensive chronic kidney disease with stage 1 through stage 4 chronic kidney disease, or unspecified chronic kidney disease; M54.6 Pain in thoracic spine; M54.2 Cervicalgia; E86.0 Dehydration; R62.7 Adult failure to thrive; A08.4 Viral intestinal infection, unspecified; R53.1 Weakness; R09.02 Hypoxemia; G89.3 Neoplasm related pain (acute) (chronic); R91.1 Solitary pulmonary nodule; Z68.24 Body mass index [BMI] 24.0-24.9, adult; Z66 Do not resuscitate; R59.0 Localized enlarged lymph nodes; Z20.822 Contact with and (suspected) exposure to COVID-19; Z79.82 Long term (current) use of aspirin; Z79.891 Long term (current) use of opiate analgesic; Z79.899 Other long term (current) drug therapy; Z87.891 Personal history of nicotine dependence; Z95.1 Presence of aortocoronary bypass graft
CPT/HCPCS: 36415; 70450; 71045; 71250; 72146; 74018; 74176; 76770; 80048; 80053; 80069; 80074; 80076; 81001; 82728; 82784; 82977; 83540; 83550; 83735; 83883; 83970; 84100; 84153; 84154; 84165; 84484; 85014; 85018; 85025; 85045; 86334; 86850; 86900; 86901; 86920; 86922; 87428; 87633; 87635; 93005; 97110; 97162; 97166; 97535; 97802; 97803; 99251; 99285; J3489; J7030; J7040; J7050; P9040; A4216; G0463; J0696; J2405; J2916; U0003; U0005